=== PATIENT | male | born 1940 | race Caucasian/White ===

== ENCOUNTER 2017-06-05 19:48 | Emergency (ER) | payer MEDICARE ==
--- NOTE | 2017-06-05 20:45 | CT ---
EXAM: NONCONTRAST HEAD CT 06/05/17 HISTORY: Fall. Facial pain. Patient is on blood thinners. COMPARISON: None. TECHNIQUE: Noncontrast head CT is performed from skull base to skull vertex. FINDINGS: There is a large right frontal scalp hematoma. The underlying calvarium as well as the remainder of the calvarium is intact. Adequate aeration of the sinuses and mastoid air cells. Cavernous carotid a therosclerosis is noted. No parenchymal hemorrhage. No extra-axial hematoma. No midline shift. Basilar cisterns are patent. Brain volume, age appropriate. Cortical stanford-white matter differentiation is preserved. Ventricles and sulci are patent and symmetric. IMPRESSION: 1. No intracranial posttraumatic sequela. 2. Right frontal scalp hematoma. POS: [facility]
--- NOTE | 2017-06-05 21:31 | CT ---
CERVICAL SPINE CT SCAN WITHOUT IV CONTRAST: 06/05/17 HISTORY: 76-year-old male with neck pain following a fall prior to admission. Cervical spine spondylosis is n oted with some disc osteophytosis and facet arthrosis. No evidence for acute fracture or facet dislo cation. IMPRESSION: Minimal bone demineralization and cervical spondylosis. No acute fracture or dislocation. POS: [facility]
--- NOTE | 2017-06-05 21:48 | CT ---
FACIAL BONE CT SCAN WITHOUT IV CONTRAST: 06/05/17 HISTORY: 76-year-old male with facial pain following a fall. There is some focal soft tissue swelling over the right frontal bone. Minimal ethmoid sinus mucosal congestion. Zygomatic arches, orbits, and mandible all appear intact. The visualized cervical spine is intact. IMPRESSION: Small focal soft tissue swelling over the right frontal bone. No evidence for acute facial bone frac ture. POS: [facility]
[2017-06-05] MEDS ORDERED: Bacitracin Zinc 1 Packet ONE (22:05)
== END 2017-06-05 22:17 | disposition home or self-care (01) ==
LOC: ERS 19:48
DX: S00.11XA Contusion of right eyelid and periocular area, initial encounter (principal); S50.311A Abrasion of right elbow, initial encounter; S60.412A Abrasion of right middle finger, initial encounter; E78.5 Hyperlipidemia, unspecified; I10 Essential (primary) hypertension; G20 Parkinson's disease; F32.9 Major depressive disorder, single episode, unspecified; W01.10XA Fall on same level from slipping, tripping and stumbling with subsequent striking against unspecified object, initial encounter
CPT/HCPCS: 70450; 70486; 72125

== ENCOUNTER 2017-10-12 08:48 | Outpatient (CLI) | payer MEDICARE ==
[2017-10-12] MEDS ORDERED: Lidocaine 2% Jelly 5 ML TUBE ONE (09:00)
[2017-10-12] MEDS ORDERED: Sodium Chloride 0.9% 15 ML NEB ONE (09:00)
--- NOTE | 2017-10-12 10:45 | HP ---
DATE OF SERVICE: 10/12/2017 HISTORY OF PRESENT ILLNESS: Mr. Obie Hill is a very pleasant 77-year- old gentleman accompanied by his who presents to the Wound Center for evaluation of an ulceration of the right great toe. The patient also has 2 ulcerations of the right medial lower leg. The patient states the ulceration of the right great toe has been present for 2 years. He states that the ulceration was first noted when callus came off the plantar surface of the right great toe. The patient states that the wounds of the right medial lower leg have also been present for 2 years. The patient states that he has been seen by Dermatology at the [facility] for his right medial lower leg wounds. A steroid cream was prescribed for treatment of the 2 ulcerations of the right medial lower leg. The patient states that for the ulceration of the right great toe, he has been seen by Dr. Campbell. The patient's states that she has been dressing the right great toe ulceration with either Vaseline or Neosporin. The ulceration is then covered with gauze and paper tape. PAST MEDICAL HISTORY: 1. Parkinson's. 2. Hypertension. 3. Hypothyroidism. 4. Peptic ulcer disease. PAST SURGICAL HISTORY: 1. Tonsillectomy. 2. Closed reduction and application of spanning wrist external fixator on 09/04. 3. Removal of external fixator of left wrist on 11/05/2016. MEDICATIONS: 1. Amantadine. 2. Carbidopa/levodopa. 3. Entacapone. 4. Losartan/HCTZ. 5. Sertraline. 6. Ropinirole. 7. Atorvastatin. 8. Clopidogrel. 9. Pantoprazole. 10. Acetamide. 11. Aspirin 81 mg. 12. Vitamin D3. 13. Vitamin C. 14. Calcium 600 mg plus vitamin D1. 15. Tamsulosin HCL. 16. Purelax. 17. Clobetasol propionate 0.5% ointment. ALLERGIES: LATEX. SOCIAL HISTORY: Significant for tobacco use of up to 1 pack of cigarettes per day for 2 years in the 1960s. The patient admits to the consumption of one drink per day for the past 60 years. FAMILY HISTORY: Significant for diabetes mellitus. The patient's grandmother was diagnosed with diabetes mellitus. Family history is also significant for coronary artery disease. The patient states that his father and a paternal aunt and uncle were all diagnosed with coronary artery disease. REVIEW OF SYSTEMS: The patient's reports an increase in the size of the right great toe. PHYSICAL EXAMINATION: VITAL SIGNS: Temperature 97.7, pulse 70, respirations 19, blood pressure 125/ 58. GENERAL: A 77-year-old gentleman sitting on table in examination room in no acute distress. HEENT: Normocephalic, atraumatic. NECK: No nuchal rigidity. CHEST: Clear to auscultation. CARDIOVASCULAR: Regular rate and rhythm. ABDOMEN: Soft. EXTREMITIES: An ulceration of the right great toe is present which measures approximately 0.9 x 0.9 cm. Granulation tissue is present within the wound margins. Necrotic and nonviable tissue present within the wound margins was debrided with an excisional full-thickness debridement with the use of a curette. Desiccated tissue, callus, and undermining at the periphery of the wound were excised with the use of scissors. No purulent drainage is associated with the wound. No erythema of the skin surrounding the wound is present. No maceration of the skin of the periwound is noted. The ulceration is located in the region of callus on the plantar surface of the right great toe. Two ulcerations of the right medial lower leg are present which measure approximately 0.5 x 0.7 cm each. Necrotic and nonviable tissue present within the margins of each wound was debrided with an excisional full-thickness debridement with the use of a curette. No purulent drainage is associated with either wound. No cellulitis of the right lower leg is appreciated. No maceration of the skin of the periwound of either wound is noted. A dorsalis pedis pulse and a posterior tibial pulse are both palpable on the right. Edema of the right lower extremity is also present on exam today. ASSESSMENT AND PLAN: 1. Ulceration of plantar surface of right great toe and venous ulcerations of right medial lower leg as described above. For the ulceration of the right great toe, dressing changes of Silverlon and gauze are to be performed on a daily basis for 3 times per week after cleansing and irrigation by the patient' s . For the ulcerations of the right medial lower leg, Silverlon, Webril, and the 3M Coban 2-layer compression system will be applied today. The patient is to return to the Wound Center in 1 week for a dressing change of Silverlon, Webril, and the 3M Coban 2 layer compression system for the right medial lower leg ulcerations. I will see Mr. Hill again in two weeks. No antibiotics will be prescribed today based upon the appearance of the wound. Plain films of the right great toe will be obtained today to look for findings suggestive of osteomyelitis. The patient and her understand and are in agreement with the preceding treatment plan. I have explained to the patient and his that consideration may need to be given to treatment with a bioengineered skin substitute should any of the wounds fail to heal over a four week period of time. 2. Parkinson's. 3. Hypertension. 4. Hypothyroidism. 5. Peptic ulcer disease. MTDD
--- NOTE | 2017-10-12 13:38 | RAD ---
RIGHT FOOT 2 VIEWS: HISTORY: Chronic ulceration of the right toe. COMPARISON: None. FINDINGS: There is soft tissue swelling. There is an ulcer involving the plantar surface of the distal aspect of the right 1st digit. Lisfranc alignment is maintained. Mild bone demineralization. No fracture. There are no erosive or destructive changes in the osseous structures. IMPRESSION: 1. Soft tissue swelling and possible cellulitis. 2. Soft tissue ulceration. 3. No definite radiographic evidence of osteomyelitis. POS: [facility]
== END 2017-10-12 08:49 | disposition home or self-care (01) ==
LOC: WCC 08:48 → RAD 08:49
PROVIDERS: ATTEND Family Medicine
DX: L97.519 Non-pressure chronic ulcer of other part of right foot with unspecified severity (principal); M79.89 Other specified soft tissue disorders
CPT/HCPCS: 11042; 73630; 97139; G0463; 99203; A4218

== ENCOUNTER 2017-10-14 07:56 | Outpatient (CLI) | payer MEDICARE ==
[2017-10-14] MEDS ORDERED: Sodium Chloride 0.9% 15 ML NEB ONE ×2 (09:00→09:02)
== END 2017-10-14 07:57 | disposition home or self-care (01) ==
LOC: WCC 07:56
PROVIDERS: ATTEND Family Medicine
DX: L97.519 Non-pressure chronic ulcer of other part of right foot with unspecified severity (principal); L97.819 Non-pressure chronic ulcer of other part of right lower leg with unspecified severity
CPT/HCPCS: 97602; A4218

== ENCOUNTER 2017-10-19 08:29 | Outpatient (CLI) | payer MEDICARE ==
[~2017-10-19 08:29] MED LIST: Sodium Chloride 0.9% 15 ML NEB ONE
== END 2017-10-19 08:30 | disposition home or self-care (01) ==
LOC: WCC 08:29
PROVIDERS: ATTEND Family Medicine
DX: L97.519 Non-pressure chronic ulcer of other part of right foot with unspecified severity (principal); L97.819 Non-pressure chronic ulcer of other part of right lower leg with unspecified severity
CPT/HCPCS: 97602; A4218

== ENCOUNTER 2017-10-26 08:48 | Outpatient (CLI) | payer MEDICARE ==
--- NOTE | 2017-10-26 10:06 | PRG ---
DATE OF SERVICE: 10/26/2017 HISTORY: Mr. Obie Hill is a very pleasant 77-year-old gentleman accompanied by his who presents to the Wound Center for evaluation of an ulceration of the right great toe. The patient als geri has 2 ulcerations of the right medial lower leg. The patient stated at the time of his initial pre sentation to the Wound Center that the ulceration of the right great toe had been present for 2 years . The patient stated that the ulceration was first noted when callus came off the plantar surface of the right great toe. The patient stated that the wounds of the right medial lower leg had also been present for 2 years. The patient stated that he had been seen by Dermatology at the [facility] for his right medial lower leg wounds. A steroid cream was prescribed for treatment of the 2 ulceration s of the right medial lower leg. The patient stated that for the ulceration of the right great toe, he had been seen by Dr. Campbell. The patient's stated that she had been dressing the right great toe ulceration with either Vaseline or Neosporin. The ulceration was then covered with gauze and pap er tape. After being seen in the Wound Center, dressing changes of Silverlon and gauze were initiate d for the ulcerations of the right medial lower leg. The patient received dressing changes of Silver remberto, Webril, and 3M Coban 2 layer compression system on a weekly basis. PHYSICAL EXAMINATION: VITAL SIGNS: Temperature 97.9, pulse 62, respirations 18, and blood pressure 135/63. EXTREMITIES: An ulceration of the right great toe is present which measures approximately 0.4 x 0.9 cm. The dimensions of the wound at the time of the patient's last visit were approximately 0.9 x 0.9 cm. Granulation tissue is present within the wound margins. Necrotic and nonviable tissue present within the wound margins was debrided with an excisional full-thickness debridement with the use of a curette. Desiccated tissue, callus, and undermining at the periphery of the wound were excised with the use of scissors. No purulent drainage is associated with the wound. No erythema of the skin musa rrounding the wound is present. No maceration of the skin of the periwound is noted. A dorsalis ped is pulse is palpable on the right. Less edema of the right great toe is present on exam today than a t the time of the patient's last visit. Two ulcerations of the right medial lower leg are present wh ich measure approximately 0.4 x 0.3 cm and 0.6 x 0.8 cm. The dimensions of each wound at the time of the patient's last visit were approximately 0.5 x 0.7 cm. Granulation tissue is present within the margins of each wound. Necrotic and nonviable tissue present within the margins of each wound was de brided with an excisional full-thickness debridement with the use of a curette. No purulent drainage is associated with either wound. No cellulitis of the right lower leg is appreciated. No maceratio n of the skin of the periwound of either wound is noted. Edema of the right lower extremity is again present on exam today. ASSESSMENT AND PLAN: 1. Ulceration of plantar surface of right great toe and venous ulcerations of right medial lower leg as described above. For the ulceration of the right great toe, dressing changes of Silverlon and ga uze are to be performed on a daily basis or 3 times per week after cleansing and irrigation with the assistance of the patient's . For the ulcerations of the right medial lower leg, Silverlon, Webr il, and the 3M Coban 2-layer compression system will be applied today. The patient is to return to [facility] in 1 week for a dressing change of Silverlon, Webril, and the 3M Coban 2 layer compre ssion system for the right medial lower leg ulcerations. I will see Mr. Mcfadden again in two weeks. Plain films of the right great toe revealed no findings suggestive of osteomyelitis. 2. Parkinson's. 3. Hypertension. 4. Hypothyroidism. 5. Peptic ulcer disease.
[2017-10-26] MEDS ORDERED: Lidocaine 2% Jelly 5 ML TUBE ONE (19:50)
[2017-10-26] MEDS ORDERED: Sodium Chloride 0.9% 15 ML NEB ONE (19:50)
== END 2017-10-26 08:49 | disposition home or self-care (01) ==
LOC: WCC 08:48
PROVIDERS: ATTEND Family Medicine
DX: L97.519 Non-pressure chronic ulcer of other part of right foot with unspecified severity (principal); L97.819 Non-pressure chronic ulcer of other part of right lower leg with unspecified severity; G20 Parkinson's disease; I10 Essential (primary) hypertension; E03.9 Hypothyroidism, unspecified; K27.9 Peptic ulcer, site unspecified, unspecified as acute or chronic, without hemorrhage or perforation
CPT/HCPCS: A4218

== ENCOUNTER 2017-11-02 10:23 | Outpatient (CLI) | payer MEDICARE | END 2017-11-02 10:24 | disposition home or self-care (01) | LOC: WCC 10:23 | PROVIDERS: ATTEND Family Medicine | DX: L97.519 Non-pressure chronic ulcer of other part of right foot with unspecified severity (principal) | CPT/HCPCS: 97602; A4218 ==

== ENCOUNTER 2017-11-09 08:39 | Outpatient (CLI) | payer MEDICARE ==
--- NOTE | 2017-11-09 10:29 | PRG ---
DATE OF SERVICE: 11/09/2017 HISTORY: Mr. Obie Hill is a very pleasant 77-year-old gentleman accompanied by his who presents to the Wound Center for evaluation of an ulceration of the right great toe. The patient als geri has 2 ulcerations of the right medial lower leg. The patient stated at the time of his initial pre sentation to the Wound Center that the ulceration of the right great toe had been present for 2 years . The patient stated that the ulceration was first noted when callus came off the plantar surface of the right great toe. The patient stated that the wounds of the right medial lower leg had also been present for 2 years. The patient stated that he had been seen by Dermatology at the [facility] for his right medial lower leg wounds. A steroid cream was prescribed for treatment of the 2 ulceration s of the right medial lower leg. The patient stated that for the ulceration of the right great toe, he has been seen by Dr. Campbell. The patient's stated that she has been dressing the right great toe ulceration with either Vaseline or Neosporin. The ulceration was then covered with gauze and pap er tape. After being seen in the Wound Center, dressing changes of Silverlon and gauze were initiate d. For the ulcerations of the right medial lower leg, the patient has been receiving dressing change s of Silverlon, Webril, and 3M Coban 2 layer compression system on a weekly basis. PHYSICAL EXAMINATION: VITAL SIGNS: Temperature 97.5, pulse 58, respirations 19, and blood pressure 149/63. EXTREMITIES: An ulceration of the right great toe is present which measures approximately 0.5 x 0.5 cm. The dimensions of the wound at the time of the patient's visit on 10/26/2017 were approximately 0.4 x 0.9 cm. Granulation tissue is present within the wound margins. Necrotic and nonviable tissue present within the wound margins was debrided with an excisional full-thickness debridement with the use of a curette. Desiccated tissue, callus, and undermining at the periphery of the wound were exc ised with the use of scissors. No purulent drainage is associated with the wound. No erythema of th e skin surrounding the wound is present. No maceration of the skin of the periwound is noted. A francesco salis pedis pulse is palpable on the right. Less edema of the right great toe is present on exam tod ay than at the time of the patient's visit on 10/26/2017. Two ulcerations of the right medial lower leg have coalesced into one ulceration. Granulation tissue is present within the wound margins. Nec rotic and nonviable tissue present within the wound margins was debrided with an excisional full-thic kness debridement with the use of a curette. No purulent drainage is associated with the wound. No cellulitis of the right lower leg is appreciated. No maceration of the skin of the periwound is note d. Edema of the right lower extremity is again present on today's exam. Discoloration of the skin o f the right lower leg is also present secondary to hemosiderin deposition. ASSESSMENT AND PLAN: 1. Ulceration of plantar surface of right great toe and venous ulceration of right medial lower leg as described above. For the ulceration of the right great toe, dressing changes of Silverlon and gau ze will be continued on a daily basis or 3 times per week after cleansing and irrigation with the ass istance of the patient's . For the ulceration of the right medial lower leg, Silverlon, Webril, and the 3M Coban 2-layer compression system will be applied today. I will see Mr. Hill again in o week. Because the venous ulcerations of the right medial lower leg have been present for over 4 w eeks and because the patient has a palpable dorsalis pedis pulse on the right, I have explained to th e patient and his that Mr. Mcfadden is a suitable candidate for treatment with a bioengineered sk in substitute, specifically Apligraf. At the time of the patient's followup visit in 1 week, conside ration will be given to Apligraf placement. 2. Lymphedema tarda. The patient continues to have edema despite the serial application of compress ion wraps and elevation. Arrangements will be made for the initiation of in-home lymphedema therapy. 3. Parkinson's. 4. Hypertension. 5. Hypothyroidism. 6. Peptic ulcer disease.
[2017-11-09] MEDS ORDERED: Lidocaine 2% Jelly 5 ML TUBE ONE (19:54)
[2017-11-09] MEDS ORDERED: Sodium Chloride 0.9% 15 ML NEB ONE (19:54)
== END 2017-11-09 08:40 | disposition home or self-care (01) ==
LOC: WCC 08:39
PROVIDERS: ATTEND Family Medicine
DX: L97.419 Non-pressure chronic ulcer of right heel and midfoot with unspecified severity (principal); L97.819 Non-pressure chronic ulcer of other part of right lower leg with unspecified severity; I89.0 Lymphedema, not elsewhere classified; G20 Parkinson's disease; I10 Essential (primary) hypertension; E03.9 Hypothyroidism, unspecified; K27.9 Peptic ulcer, site unspecified, unspecified as acute or chronic, without hemorrhage or perforation
CPT/HCPCS: 11042; A4218

== ENCOUNTER 2017-11-18 08:34 | Outpatient (CLI) | payer MEDICARE ==
[2017-11-18] MEDS ORDERED: Lidocaine 2% Jelly 5 ML TUBE ONE (09:00)
[2017-11-18] MEDS ORDERED: Sodium Chloride 0.9% 15 ML NEB ONE (09:00)
--- NOTE | 2017-11-18 11:02 | PRG ---
DATE OF SERVICE: 11/18/2017 HISTORY: Mr. Obie Hill is a very pleasant 77-year-old gentleman accompanied by his who pre sents to the Wound Center for evaluation of an ulceration of the right great toe. The patient also h as 2 ulcerations of the right medial lower leg. The patient stated at the time of his initial presen tation to the Wound Center that the ulceration of the right great toe had been present for 2 years. The patient stated that the ulceration was first noted when the callus came off the plantar surface o f the right great toe. The patient stated that the wounds of the right medial lower leg had also bee n present for 2 years. The patient stated that he had been seen by Dermatology at the [facility] fo r his right medial lower leg wounds. A steroid cream was prescribed for treatment of the 2 ulceratio ns of the right medial lower leg. The patient stated that for the ulceration of the right great toe, he has been seen by Dr. Campbell. The patient's stated that she had been dressing the right great toe ulceration with either Vaseline or Neosporin. The ulceration was then covered with gauze and pa per tape. After being seen in the Wound Center, dressing changes of Silverlon and gauze were initiat ed. For the ulcerations of the right medial lower leg, the patient has been receiving dressing renteria es of Silverlon, Webril, and 3M Coban 2 layer compression system on a weekly basis. PHYSICAL EXAMINATION: VITAL SIGNS: Temperature 97.9, pulse 62, respirations 18, blood pressure 133/60. EXTREMITIES: An ulceration of the right great toe is present, which measures approximately 0.5 x 0.8 cm. Granulation tissue is present within the wound margins. Necrotic and nonviable tissue present within the wound margins was debrided with an excisional full-thickness debridement with the use of a curette. Desiccated tissue, callus, and undermining at the periphery of the wound were excised with the use of scissors. No purulent drainage is associated with the wound. No erythema of the skin musa rrounding the wound is present. No maceration of the skin of the periwound is noted. Less edema of the right great toe is present on exam today than at the time of the patient's visit on 11/09/2017. Two ulcerations of the right medial lower leg are present, which measure approximately 1.0 x 1.1 cm a nd 1.0 x 1.0 cm. Granulation tissue is present within the margins of each wound. Necrotic and nonvi able tissue present within the margins of each wound was debrided with an excisional full-thickness d ebridement with the use of a curette. No purulent drainage is associated with either wound. No cell ulitis of the right lower leg is appreciated. No maceration of the skin of the periwound of either w ound is noted. Edema of the right lower leg is present on exam today. Discoloration of the skin of the right lower leg is also present secondary to hemosiderin deposition. ASSESSMENT AND PLAN: 1. Ulceration of plantar surface of right great toe and venous ulcerations of right medial lower leg as described above. For the ulceration of the right great toe, dressing changes of Promogran, Silve rlon and gauze will be continued every other day after cleansing and irrigation with the assistance o f the patient's . For the ulcerations of the right medial lower leg, Promogran, Silverlon, Webri l, and the 3M Coban 2-layer compression system will be applied today. I will see Mr. Hill again i n one week. I have reiterated to the patient and his , because the venous ulcerations of the rig ht medial lower leg have been present for over 4 weeks and because the patient has a palpable dorsali s pedis pulse on the right, Mr. Hill is a suitable candidate for treatment with a bioengineered sk in substitute, specifically Apligraf. I will see Mr. Hill again on 11/26/2017. 2. Lymphedema Tarda. The patient continues to have edema of the right lower leg despite the serial application of compression wraps and elevation. Arrangements will be made at the time of the patient 's visit on 11/26/2017 for the initiation of in-home lymphedema therapy. 3. Parkinson's. 4. Hypertension. 5. Hypothyroidism. 6. Peptic ulcer disease.
== END 2017-11-18 08:35 | disposition home or self-care (01) ==
LOC: WCC 08:34
PROVIDERS: ATTEND Family Medicine
DX: I83.018 Varicose veins of right lower extremity with ulcer other part of lower leg (principal); L97.519 Non-pressure chronic ulcer of other part of right foot with unspecified severity; I10 Essential (primary) hypertension; L97.919 Non-pressure chronic ulcer of unspecified part of right lower leg with unspecified severity; I89.0 Lymphedema, not elsewhere classified; G20 Parkinson's disease; K27.9 Peptic ulcer, site unspecified, unspecified as acute or chronic, without hemorrhage or perforation
CPT/HCPCS: 11042; A4218

== ENCOUNTER 2017-11-26 08:22 | Outpatient (CLI) | payer MEDICARE ==
[~2017-11-26 08:22] MED LIST changes: +Lidocaine 2% Jelly 5 ML TUBE ONE
--- NOTE | 2017-11-26 11:17 | PRG ---
DATE OF SERVICE: 11/26/2017 HISTORY: Mr. Obie Hill is a very pleasant 77-year-old gentleman accompanied by his who presents to the Wound Center for evaluation of an ulceration of the right great toe. The patient also has 2 ulcerations of the right medial lower leg. The patient stated at the time of his initial presentation to the Wound Center that the ulceration of the right great toe had been present for 2 years. The patient stated that the ulceration was first noted when callus came off the plantar surface of the right great toe. The patient stated that the wounds of the right medial lower leg had also been present for 2 years. The patient stated that he had been seen by Dermatology at the [facility] for his right medial lower leg wounds. A steroid cream was prescribed for treatment of the 2 ulcerations of the right medial lower leg. The patient stated that for the ulceration of the right great toe, he has been seen by Dr. Campbell. The patient's stated that she had been dressing the right great toe ulceration with either Vaseline or Neosporin. The ulceration was then covered with gauze and paper tape. After being seen in the Wound Center, dressing changes of Silverlon and gauze were initiated. For the ulcerations of the right medial lower leg, the patient has been receiving dressing changes of Silverlon, Webril, and the 3M Coban 2-layer compression system on a weekly basis. At the time of the patient's visit on 11/18/2017, Promogran was added to the patient's regimen. PHYSICAL EXAMINATION: VITAL SIGNS: Temperature 97.4, pulse 63, respirations 18, blood pressure 125/ 58. EXTREMITIES: An ulceration of the right great toe is present which measures approximately 0.2 x 0.4 cm. Granulation tissue is present within the wound margins. Necrotic and nonviable tissue present within the wound margins was debrided with an excisional full-thickness debridement with the use of a curette. No purulent drainage is associated with the wound. Desiccated tissue , callus, and undermining at the periphery of the wound were excised with the use of scissors. No erythema of the skin surrounding the wound is present. No maceration of the skin of the periwound is noted. Less edema of the right great toe is present on exam today than at the time of the patient's previous visits. Two ulcerations of the right medial lower leg are present which measure approximately 0.5 x 0.5 cm and 0.3 x 0.4 cm. Granulation tissue is present within the margins of each wound. Necrotic and nonviable tissue present within the margins of each wound was debrided with an excisional full- thickness debridement with the use of a curette. No purulent drainage is associated with either wound. No cellulitis of the right lower leg is appreciated. No maceration of the skin of the periwound of either wound is noted. Edema of the right lower leg is present on exam today. Discoloration of the skin of the right lower leg is also present secondary to hemosiderin deposition. ASSESSMENT AND PLAN: 1. Ulceration of plantar surface of right great toe and venous ulcerations of right medial lower leg as described above. For the ulceration of the right great toe, dressing changes of Promogran, Silverlon,and gauze will be continued every other day after cleansing and irrigation with the assistance of the patient's . For the ulcerations of the right medial lower leg, Promogran, Silverlon, Webril, and the 3M Coban 2-layer compression system will be applied today. I will see Mr. Hill again in one week. At this time, consideration will be given to treatment with Apligraf. 2. Lymphedema tarda. The patient continues to have edema of the right lower leg despite the serial application of compression wraps and elevation. Arrangements will continue for the initiation of in-home lymphedema therapy. 3. Parkinson's. 4. Hypertension. 5. Hypothyroidism. 6. Peptic ulcer disease. [facility]
== END 2017-11-26 08:23 | disposition home or self-care (01) ==
LOC: WCC 08:22
PROVIDERS: ATTEND Family Medicine
DX: L97.519 Non-pressure chronic ulcer of other part of right foot with unspecified severity (principal); I89.0 Lymphedema, not elsewhere classified; G20 Parkinson's disease; I10 Essential (primary) hypertension; E03.9 Hypothyroidism, unspecified; K27.9 Peptic ulcer, site unspecified, unspecified as acute or chronic, without hemorrhage or perforation
CPT/HCPCS: 11042; A4218

== ENCOUNTER 2017-12-03 08:26 | Outpatient (CLI) | payer MEDICARE ==
--- NOTE | 2017-12-03 10:30 | PRG ---
DATE OF SERVICE: 12/03/2017 HISTORY: Mr. Obie Hill is a very pleasant 77-year-old gentleman accompanied by his who presents to the W[facility] Center for evaluation of an ulceration of the right great toe. The patient als o has 2 ulcerations of the right medial lower leg. The patient stated at the time of his initial pre sentation to the Wound Center that the ulceration of the right great toe had been present for 2 years . The patient stated that the ulceration was first noted when the callus came off the plantar surfac e of the right great toe. The patient stated that the wounds of the right medial lower leg had also been present for 2 years. The patient stated that he had been seen by Dermatology at the [facility] for his right medial lower leg wounds. A steroid cream was prescribed for the treatment of 2 ulcera tions of the right medial lower leg. The patient stated that for the ulceration of the right great t oe, he had been seen by Dr. Campbell. The patient's stated that she had been dressing the right gr eat toe ulceration with either Vaseline or Neosporin. The ulceration was then covered with gauze and paper tape. After being seen in the Wound Center, dressing changes of Silverlon and gauze were init iated. For the ulceration of the right medial lower leg, the patient has been receiving dressing maxi nges of Silverlon, Webril, and 3m Coban 2 layer compression system on a weekly basis. At the time of the patient's visit on 11/18/2017, Promogran was added to the patient's regimen. PHYSICAL EXAMINATION: VITAL SIGNS: Temperature 97.4, pulse 72, respirations 18, blood pressure 119/58. EXTREMITIES: An ulceration of the right great toe is present which measures approximately 0.4 x 0.2 cm. Granulation tissue is present within the wound margins. Necrotic and nonviable tissue present w ithin the wound margins was debrided with an excisional full-thickness debridement with the use of a curette. No purulent drainage is associated with the wound. Desiccated tissue, callus, and undermin ing at the periphery of the wound were eliminated with the use of scissors. No erythema of the skin surrounding the wound is present. No maceration of the skin of the periwound is noted. Less edema o f the right great toe is present on exam today than at the time of the patient's previous visits. Tw o ulcerations of the right medial lower leg are present which are healing without complications or an y signs of infection. Discoloration of the skin of the right lower leg is present secondary to hemos iderin deposition. Edema of the right lower leg is also present on exam today. ASSESSMENT AND PLAN: 1. Ulceration of plantar surface of right great toe and venous ulcerations of right medial lower leg as described above. For the ulceration of the right great toe, dressing changes of Promogran and Si lverlon and gauze will be continued daily or every other day after cleansing and irrigation with the assistance of the patient's . For the ulcerations of the right medial lower leg, Promogran, Silv erlon, Webril, and the 3m Coban 2-layer compression system will be applied today. Coban will be util ized at the time of dressing changes for the right great toe wound. I will see Mr. Mcfadden again in one week. Ankle brachial indices were obtained today. LAZARA on the right is 1.04 and on the left is 1 .33. 2. Lymphedema tarda. The patient continues to have edema of the right lower leg despite the serial application of compression wraps and elevation. Arrangements will continue for the initiation of in- home lymphedema therapy. 3. Parkinson's. 4. Hypertension. 5. Hypothyroidism. 6. Peptic ulcer disease.
== END 2017-12-03 08:27 | disposition home or self-care (01) ==
LOC: WCC 08:26
PROVIDERS: ATTEND Family Medicine
DX: L97.519 Non-pressure chronic ulcer of other part of right foot with unspecified severity (principal); L97.819 Non-pressure chronic ulcer of other part of right lower leg with unspecified severity; I89.0 Lymphedema, not elsewhere classified; R60.0 Localized edema; G20 Parkinson's disease; I10 Essential (primary) hypertension; E03.9 Hypothyroidism, unspecified; K27.9 Peptic ulcer, site unspecified, unspecified as acute or chronic, without hemorrhage or perforation

== ENCOUNTER 2017-12-10 08:27 | Outpatient (CLI) | payer MEDICARE ==
--- NOTE | 2017-12-10 09:37 | PRG ---
DATE OF SERVICE: 12/10/2017 HISTORY: Mr. Obie Hill is a very pleasant 77-year-old gentleman accompanied by his who presents to the Wound Center for evaluation of an ulceration of the right great toe. The patient als geri has 2 ulcerations of the right medial lower leg. The patient stated at the time of his initial pre sentation to the Wound Center that the ulceration of the right great toe had been present for 2 years . The patient stated that the ulceration was first noted when the callus came off the plantar surfac e of the right great toe. The patient stated that the wounds of the right medial lower leg had also been present for 2 years. The patient stated that he had been seen by Dermatology at the [facility] for his right medial lower leg wounds. A steroid cream was prescribed for the treatment of 2 ulcera tions of the right medial lower leg. The patient stated that for the ulceration of the right great t oe he had been seen by Dr. Campbell. The patient's stated that she had been dressing the right gre at toe ulceration with either Vaseline or Neosporin. The ulceration was then covered with gauze and paper tape. After being seen in the Wound Center, dressing changes of Silverlon and gauze were initi ated for the ulceration of the right medial lower leg. The patient has been receiving dressing renteria es of Silverlon, Webril, and 3m Coban 2 layer compression system on a weekly basis. At the time of t patient's visit on 11/18/2017 Promogran was added to the patient's regimen. PHYSICAL EXAMINATION: VITAL SIGNS: Pulse 63, respirations 18, blood pressure 132/63. EXTREMITIES: An ulceration of the right great toe is present which measures approximately 0.2 x 0.2 cm. The dimensions of the wound at the time of the patient's visit on 12/03/2017 were approximately 0.4 x 0.2 cm. Granulation tissue is present within the wound margins. Necrotic and nonviable tissue present within the wound margins was debrided with an excisional full-thickness debridement with the use of a curet. No purulent drainage is associated with the wound. Desiccated tissue, callus, and undermining at the periphery of the wound were eliminated with the use of scissors. No erythema of t skin surrounding the wound is present. No maceration of the skin of the periwound is noted. Less edema of the right great toe is present on exam today than at the time of the patient's previous vis its. Erythema of the dorsum of the distal right great toe is present. The area of erythema is appro ximately 2.5 cm in length. Only 1 ulceration of the right medial lower leg is present which appears to be healing without complications or any signs of infection. Discoloration of the skin of the righ t lower leg is present secondary to hemosiderin deposition. Edema of the right lower leg is also pre sent on exam today. ASSESSMENT AND PLAN: 1. Ulceration of plantar surface of right great toe and venous ulcerations of right medial lower leg as described above. As stated above, only 1 venous ulceration of the right medial lower leg remains . For the ulceration of the right great toe dressing changes of Promogran, Silverlon, gauze and Angela n will be continued every 3 days after cleansing and irrigation with the assistance of the patient's . For the remaining ulceration of the right medial lower leg, Promogran, Silverlon, Webril, and the 3m Coban 2-layer compression system will be applied today. I will see Mr. Hill again in 1 wee k. 2. Lymphedema tarda The patient continues to have edema of the right lower leg despite the serial a pplication of compression wraps and elevation. Arrangements will continue for the initiation of in-h ome lymphedema therapy. 3. Parkinson's. 4. Hypertension. 5. Hypothyroidism. 6. Peptic ulcer disease.
[2017-12-10] MEDS ORDERED: Lidocaine 2% Jelly 5 ML TUBE ONE (15:28)
[2017-12-10] MEDS ORDERED: Sodium Chloride 0.9% 15 ML NEB ONE (15:28)
== END 2017-12-10 08:28 | disposition home or self-care (01) ==
LOC: WCC 08:27
PROVIDERS: ATTEND Family Medicine
DX: L97.519 Non-pressure chronic ulcer of other part of right foot with unspecified severity (principal); L97.919 Non-pressure chronic ulcer of unspecified part of right lower leg with unspecified severity; I89.0 Lymphedema, not elsewhere classified; R60.0 Localized edema; G20 Parkinson's disease; I10 Essential (primary) hypertension; E03.9 Hypothyroidism, unspecified; K27.9 Peptic ulcer, site unspecified, unspecified as acute or chronic, without hemorrhage or perforation
CPT/HCPCS: 11042; A4218

== ENCOUNTER 2017-12-17 08:59 | Outpatient (CLI) | payer MEDICARE ==
--- NOTE | 2017-12-17 09:58 | PRG ---
DATE OF SERVICE: 12/17/2017 HISTORY: Mr. Obie Hill is a very pleasant 77-year-old gentleman accompanied by his who presents to the Wound Center for evaluation of an ulceration of the right great toe. The patient als geri has 2 ulcerations of the right medial lower leg. The patient stated at the time of his initial pre sentation to the Wound Center that the ulceration of the right great toe had been present for 2 years . The patient stated that the ulceration was first noted when the callus came off the plantar surfac e of the right great toe. The patient stated that the wounds of the right medial lower leg had also been present for 2 years. The patient stated that he had been seen by Dermatology at the [facility] for his right medial lower leg wounds. A steroid cream was prescribed for the treatment of 2 ulcera tions of the right medial lower leg. The patient stated that for the ulceration of the right great t oe, he had been seen by Dr. Campbell. The patient's stated that she had been dressing the right gr eat toe ulceration with either Vaseline or Neosporin. The ulceration was then covered with gauze and paper tape. After being seen in the Wound Center, dressing changes of Silverlon and gauze were init iated. For the ulceration of the right medial lower leg, the patient has been receiving dressing maxi nges of Silverlon, Webril, and 3m Coban 2 layer compression system on a weekly basis. At the time of the patient's visit on 11/18/2017, Promogran was added to the patient's regimen. PHYSICAL EXAMINATION: VITAL SIGNS: Temperature 97.6, pulse 71, respirations 18, blood pressure 100/49. EXTREMITIES: An ulceration of the right great toe is present which measures approximately 0.4 x 0.2 cm. The depth of the wound is approximately 0.8 cm. Granulation tissue is present within the wound margins. Necrotic and nonviable tissue present within the wound margins was debrided with an excisio nal full-thickness debridement with the use of scissors. No purulent drainage is associated with the wound. Desiccated tissue, callus, and undermining at the periphery of the wound were also eliminate d with the use of scissors. No erythema of the skin surrounding the wound is present. No maceration of the skin of the periwound is noted. Edema and erythema of the distal right great toe is present on exam today. Both ulcerations of the right medial lower leg have healed completely. Discoloration of the skin of the right lower leg is present secondary to hemosiderin deposition. Edema of the rig ht lower leg is also present on today's exam. ASSESSMENT AND PLAN: 1. Ulceration of plantar surface of right great toe. As stated above, the venous ulcerations of the right medial lower leg have healed completely. For the ulceration of the right great toe, dressing changes of Promogran, Silverlon Gauze and Coban will be continued every 3 days after cleansing and ir rigation with the assistance of the patient's . Webril and the 3m Coban 2-layer compression syst em will be applied to the right foot and lower leg today. Arrangements will also be made for MRI of the right foot to look for findings suggestive of osteomyelitis of the right great toe. The patient and his understand and are in agreement with the preceding treatment plan. I will see Mr. Red busch again after MRI of the right foot with and without contrast has been obtained. 2. Lymphedema tarda. The patient continues to have edema of the right lower leg despite the serial application of compression wraps and elevation. Arrangements will continue for the initiation of in- home lymphedema therapy. 3. Parkinson's. 4. Hypertension. 5. Hypothyroidism. 6. Peptic ulcer disease.
== END 2017-12-17 09:00 | disposition home or self-care (01) ==
LOC: WCC 08:59
PROVIDERS: ATTEND Family Medicine
DX: L97.519 Non-pressure chronic ulcer of other part of right foot with unspecified severity (principal); I89.0 Lymphedema, not elsewhere classified; I10 Essential (primary) hypertension; E03.9 Hypothyroidism, unspecified; G20 Parkinson's disease; K27.9 Peptic ulcer, site unspecified, unspecified as acute or chronic, without hemorrhage or perforation
CPT/HCPCS: 11042; 97139; A4649

== ENCOUNTER 2017-12-21 08:41 | Outpatient (CLI) | payer MEDICARE ==
[2017-12-21] MEDS ORDERED: Gadobenate Dimeglumine 529 MG/1 ML (20ML VIAL) ONE (13:04)
--- NOTE | 2017-12-21 13:15 | MRI ---
MRI OF THE RIGHT FOREFOOT WITH AND WITHOUT CONTRAST: Date: 12/21/17 INDICATION: Concern for osteomyelitis of the right great toe. TECHNIQUE: Multiplanar, multisequence MR images were obtained of the right forefoot with and without contrast ut ilizing 14 mL MultiHance. COMPARISON: Radiographs of the right foot dated 10/12/17. FINDINGS: There is a plantar based ulceration involving the great toe distal phalanx, best seen on image 5 of s eries 4. There is cortical osteolysis and abnormal bone marrow signal intensity involving the distal tip of the distal phalanx of the great toe consistent with osteomyelitis. There is some mild cellulit is of the great toe. There is diffuse atrophy of the intrinsic foot musculature. There are scattered degenerative changes. There are changes of osteonecrosis of the fibula great toe sesamoid with fragme ntation. IMPRESSION: 1. 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 3. Extensive atrophy of the intrinsic foot musculature. POS: SHRUTHI
== END 2017-12-21 08:42 | disposition home or self-care (01) ==
LOC: MRI 08:41
PROVIDERS: ATTEND Family Medicine
DX: M86.8X7 Other osteomyelitis, ankle and foot (principal); L97.519 Non-pressure chronic ulcer of other part of right foot with unspecified severity; M87.87 Other osteonecrosis, ankle, foot and toes; M62.571 Muscle wasting and atrophy, not elsewhere classified, right ankle and foot
CPT/HCPCS: 82565; A9579

== ENCOUNTER 2017-12-24 10:34 | Outpatient (CLI) | payer MEDICARE ==
--- NOTE | 2017-12-24 14:34 | PRG ---
DATE OF SERVICE: 12/24/2017 HISTORY: Mr. Obie Hill is a very pleasant 77-year-old gentleman accompanied by his who presents to the Wound Center for evaluation of an ulceration of the right great toe. The patient als o has 2 ulcerations of the right medial lower leg. Since the patient was last seen in the Wound Cent er, Mr. Hill has undergone MRI of the right forefoot with and without contrast on 12/21/2017 which revealed osteomyelitis of the great toe distal phalanx. For the ulcerations of the right medial low er leg, the patient has been receiving dressing changes of Silverlon, Webril, and 3M Coban 2 layer co mpression system on a weekly basis here in the Wound Center. For the ulceration of the right great t oe, the patient has been receiving dressing changes of Promogran, Silverlon, gauze and Coban every 3 days after cleansing and irrigation with the assistance of the patient's . PHYSICAL EXAMINATION: VITAL SIGNS: Temperature 97.5, pulse 63, respirations 19, blood pressure 126/58. EXTREMITIES: An ulceration of the right great toe is present which measures approximately 0.6 x 0.3 cm. The depth of the wound is approximately 0.4 cm. Granulation tissue is present within the wound margins. No purulent drainage is associated with the wound. No erythema of the skin surrounding the wound is present. No maceration of the skin of the periwound is noted. Erythema and edema of the d istal right great toe are again present on exam today. Both ulcerations of the right medial lower le g have healed completely and remain healed. Discoloration of the skin of the right lower leg is pres ent secondary to hemosiderin deposition. ASSESSMENT AND PLAN: 1. Ulceration of plantar surface of right great toe. In view of the results of the MRI, arrangement s will be made for Mr. Hill to be seen in consultation by Orthopedic Surgery. As stated above, th e venous ulcerations of the right medial lower leg have healed completely and remain healed. Webril and the 3M Coban 2-layer compression system will be applied to the right foot and lower leg today for the ulceration of the right great toe. Dressing changes of Silverlon, gauze and Coban are to be con tinued every 3 days after cleansing and irrigation with the assistance of the patient's . The pa tient will be notified as to the date and time of his appointment with Orthopedic Surgery. The patie nt and his understand and are in agreement with the preceding treatment plan. 2. Lymphedema tarda. Arrangements are continuing for the initiation of in-home lymphedema therapy. The patient is to return to the Wound Center in 1 week for application of Webril and the 3M Coban 2 layer compression system to the right foot and lower leg if he has not yet received his pneumatic pum p. 3. Parkinson's. 4. Hypertension. 5. Hypothyroidism. 6. Peptic ulcer disease.
== END 2017-12-24 10:35 | disposition home or self-care (01) ==
LOC: WCC 10:34
PROVIDERS: ATTEND Family Medicine
DX: L97.519 Non-pressure chronic ulcer of other part of right foot with unspecified severity (principal); L97.919 Non-pressure chronic ulcer of unspecified part of right lower leg with unspecified severity; I89.0 Lymphedema, not elsewhere classified; G20 Parkinson's disease; I10 Essential (primary) hypertension; E03.9 Hypothyroidism, unspecified; K27.9 Peptic ulcer, site unspecified, unspecified as acute or chronic, without hemorrhage or perforation
CPT/HCPCS: 97602

== ENCOUNTER 2017-12-31 09:55 | Outpatient (CLI) | payer MEDICARE ==
--- NOTE | 2017-12-31 11:29 | PRG ---
DATE OF SERVICE: 12/31/2017 HISTORY: Mr. Obie Hill is a very pleasant 77-year-old gentleman accompanied by his who presents to the Wound Center for evaluation of an ulceration of the right great toe. The patient als o presents with skin tears of the right and left lower leg subsequent to a fall. MRI of the right fo refoot with and without contrast on 12/21/2017 revealed osteomyelitis of the great toe distal phalanx . For the ulceration of the right great toe, the patient has been receiving dressing changes with th e assistance of his . PHYSICAL EXAMINATION: VITAL SIGNS: Temperature 97.4, pulse 60, respirations 18, blood pressure 119/58. EXTREMITIES: An ulceration of the right great toe is present which measures approximately 0.2 x 0.2 cm. The depth of the wound is approximately 0.3 cm. Granulation tissue is present within the wound margins. No purulent drainage is associated with the wound. No erythema of the skin surrounding the wound is present. No maceration of the skin of the periwound is noted. Erythema and edema of the d istal right great toe are again present on exam today. ASSESSMENT AND PLAN: 1. Ulceration of plantar surface of right great toe. Arrangements will be made for Mr. Hill to b e seen in consultation by General Surgery. The patient's is to continue dressing changes for th e right great toe plantar ulceration. For the skin tears of the right and left lower legs, the patie nt's is to perform dressing changes of Silverlon 3 times per week after cleansing and irrigation . 2. Lymphedema tarda. The patient has received his pneumatic pump and will be receiving instruction in its use in the near future. 3. Parkinson's. 4. Hypertension. 5. Hypothyroidism. 6. Peptic ulcer disease.
[2017-12-31] MEDS ORDERED: Sodium Chloride 0.9% 15 ML NEB ONE (21:17)
== END 2017-12-31 09:56 | disposition home or self-care (01) ==
LOC: WCC 09:55
PROVIDERS: ATTEND Family Medicine
DX: L97.519 Non-pressure chronic ulcer of other part of right foot with unspecified severity (principal); I89.0 Lymphedema, not elsewhere classified; G20 Parkinson's disease; I10 Essential (primary) hypertension; E03.9 Hypothyroidism, unspecified; K27.9 Peptic ulcer, site unspecified, unspecified as acute or chronic, without hemorrhage or perforation
CPT/HCPCS: 97602; A4218

== ENCOUNTER 2018-01-21 14:41 | Outpatient (CLI) | payer MEDICARE ==
[~2018-01-21 14:41] MED LIST changes: -Lidocaine 2% Jelly 5 ML TUBE ONE
--- NOTE | 2018-01-21 17:19 | PRG ---
DATE OF SERVICE: 01/21/2018 HISTORY: Mr. Obie Hill is a very pleasant 77-year-old gentleman accompanied by his who presents to the Wound Center for evaluation of an ulceration of the right great toe. MRI of the rig t forefoot with and without contrast on 12/21/2017 revealed osteomyelitis of the great toe distal pha lanx. The patient has an appointment with General Surgery on 01/26/2018. The patient's reports discoloration of the soft tissue of the distal right great toe after trimming of callus by Podiatry. The patient has no other complaints today. He denies any fever or chills. PHYSICAL EXAMINATION: VITAL SIGNS: Temperature 97.6, pulse 63, respirations 19, blood pressure 130/60. EXTREMITIES: An ulceration of the right great toe is still present which today measures approximatel y 0.3 x 0.3 cm. Granulation tissue is present within the wound margins. No purulent drainage is ass ociated with the wound. No maceration of the skin of the periwound is noted. Erythema and edema of the distal right great toe are again noted on today's exam. ASSESSMENT AND PLAN: 1. Ulceration of plantar surface of right great toe. Arrangements have been made for Mr. Hill to be seen in consultation by General Surgery. The patient's appointment is on 01/26/2018. For the chari francis's right great toe plantar ulceration, the patient's is to continue dressing changes of Leslie verlon gauze and Coban every other day after cleansing and irrigation with normal saline. The manjinderen t and his have been reassured that the discoloration of the soft tissue of the distal right grea t toe does not appear to be secondary to an infectious process, but rather bruising after trimming of callus by Podiatry. 2. Lymphedema tarda. The patient is utilizing his pneumatic pump as previously prescribed. 3. Parkinson's. 4. Hypertension. 5. Hypothyroidism. 6. Peptic ulcer disease.
== END 2018-01-21 14:42 | disposition home or self-care (01) ==
LOC: WCC 14:41
PROVIDERS: ATTEND Family Medicine
DX: L97.519 Non-pressure chronic ulcer of other part of right foot with unspecified severity (principal); I89.0 Lymphedema, not elsewhere classified; G20 Parkinson's disease; I10 Essential (primary) hypertension; E03.9 Hypothyroidism, unspecified; K27.9 Peptic ulcer, site unspecified, unspecified as acute or chronic, without hemorrhage or perforation
CPT/HCPCS: 97602; A4218

== ENCOUNTER 2018-01-31 21:02 | Inpatient (IN) | payer MEDICARE ==
[2018-01-31 21:43] LABS: Hemoglobin 13.3 g/dL (14.0-18.0); Mean Corpuscular HGB CONC 33.5 g/dL (32.0-36.0); Mean Corpuscular Hemoglobin 30.4 pg (27.0-31.0); Mean Corpuscular Volume 90.7 fL (78.0-98.0); Red Blood Cell (RBC) Count 4.38 mill/uL (4.70-6.10); White Blood Cell (WBC) Count 9.1 thou/uL (4.8-10.8)
--- NOTE | 2018-01-31 21:43 | RAD ---
PORTABLE CHEST ONE VIEW: Date: 01-31-18 Time: 9:35 p.m. History: Increased weakness, Parkinson's disease. Comparison: 01-28-16 FINDINGS: Heart size is normal. No lobar consolidation, pneumothoraces or pleural effusions are seen. IMPRESSION: No acute process. POS: KIKI
[2018-01-31 21:58] LABS: Acanthocytes SLIGHT = 1-5 cells (100X) (None Seen); Band 24 % (5-11); Elliptocytes SLIGHT = 2-5 cells (100X) (0-1/hpf); Lymphocytes 2 % (21-51); MDiff Complete? YES; Mean Platelet Volume 8.6 fL (7.4-10.4); Monocytes 4 % (0-10); Neutrophil 70 % (42-75); PLT Morphology Comment Appears Decreased; Platelet Count 112 thou/uL (130-400)
[2018-01-31 21:59] LABS: ALT (SGPT) Less than 7 U/L (8-55); AST (SGOT) 14 U/L (5-34); Alkaline Phosphatase 94 U/L (40-150); Anion Gap 15 mmol/L (10-20); BUN (Urea Nitrogen) 30 mg/dL (8.4-25.7); Bilirubin, Total 1.4 mg/dL (0.2-1.2); Calc. Creatinine Clearance 0 mL/min (70-130); Calcium 9.4 mg/dL (7.8-10.44); Carbon Dioxide 25 mmol/L (23-31); Chloride 101 mmol/L (98-107); Estimated GFR-MDRD 40; Globulin 2.8 g/dL (2.4-3.5); Glucose 117 mg/dL (83-110); Potassium 3.6 mmol/L (3.5-5.1); Protein, Total 6.8 g/dL (5.8-8.1); Sodium 137 mmol/L (136-145)
--- NOTE | 2018-01-31 22:40 | RAD ---
RIGHT FOOT THREE VIEWS: History: Right foot pain. FINDINGS/IMPRESSION: Comparison is made with exam of 10-12-17. Mild degenerative changes are present. No fracture or dislocation, bony destruction or periosteal geovanni ction identified. Posterior and plantar calcaneal spurs are present. POS: KIKI
[2018-01-31] MEDS ORDERED: Piperacillin/Tazobactam 4.5 GM VIAL ONE (22:52)
[2018-01-31] MEDS ORDERED: Sodium Chloride 0.9% 100 ML ONE (22:53)
[2018-01-31] MEDS ORDERED: Ondansetron HCl/PF 4 MG/2 ML Vial IVP PRN (23:06)
[2018-01-31] MEDS ORDERED: Acetaminophen 325 MG TAB PO PRN (23:06)
[2018-01-31] MEDS ORDERED: Enoxaparin Sodium 40 MG/0.4 ML SYRINGE SC SCH (23:15)
[2018-01-31] MEDS ORDERED: Vancomycin HCl 1.25 GM in Sodium Chloride 0.9% 250 ML 250 ML IVPB SCH (23:30)
[2018-01-31] MEDS ORDERED: Piperacillin/Tazobactam 4.5 GM in Sodium Chloride 0.9% 100 ML IVPB SCH (23:45)
--- NOTE | 2018-02-01 00:49 | HP ---
CHIEF COMPLAINT: Chills and weakness. PRIMARY CARE PHYSICIAN: Pedrito Melara MD CODE STATUS: FULL code. TIME OF EVALUATION: 11:00 p.m. HISTORY OF PRESENT ILLNESS: This is a 77-year-old male patient with past medical history of hypertension, who came to the hospital after having an episode of syncope and fall. The patient was found to have hypotension with systolic in the 70s. The has stated that the patient was working today at his workshop and after that, he became confused, very weak. The patient had chills, no fever. Symptoms were severe. The symptoms started around 4:00 p.m. The patient has been recovering, still occasionally confused, but able to establish a coherent conversation and answered simple questions. As noted, the patient has a chronic right big toe infection that had been receiving treatment by Wound Care. Podiatry has seen this patient in the past and was willing to have him get a long-term antibiotic therapy before doing any surgeries. REVIEW OF SYSTEMS: Constitutional: The patient has chills. No fever. Severe generalized weakness. Respiratory: No cough. No sputum production or shortness of breath. Cardiovascular: No chest pain, palpitation, shortness of breath. Gastrointestinal: No nausea, vomiting, diarrhea, or abdominal pain. [employer]PUT[employer]: No dizziness, headache, feeling lightheaded. Genitourinary: No burning on urination. Extremities: No leg swelling. All other systems were reviewed and negative except for the findings mentioned above. PAST MEDICAL HISTORY: 1. Right toe infection that is chronic. 2. Hypertension. 3. Hypothyroidism. 4. Peptic ulcer. 5. Parkinson disease. PAST SURGICAL HISTORY: Tonsillectomy, wrist surgery. HOME MEDICATIONS: Amantadine; carbidopa, levodopa, and entacapone; losartan and hydrochlorothiazide; sertraline; ropinirole; atorvastatin; clopidogrel; pantoprazole; acetaminophen; aspirin; vitamin D; vitamin C; tamsulosin; Pradaxa ; clobetasol ointment. ALLERGIES: LATEX. SOCIAL HISTORY: Lives with . The patient drinks 1 drink per day. FAMILY HISTORY: Positive for diabetes. Mother of cancer. PHYSICAL EXAMINATION: VITAL SIGNS: On presentation in the ER, the patient had systolic blood pressure in the 70, had responded to fluids; after the second bolus, the systolic blood pressure in 100s. Heart rate 85, oxygen saturation is normal. GENERAL APPEARANCE: The patient is alert, oriented. Significant generalized weakness reported. HEENT: Eyes: Normal conjunctivae. Moist oral mucosa. Anicteric. NECK: No JVD. RESPIRATORY: Bilateral air entry. No rales, no wheezing. Symmetric expansion. CARDIOVASCULAR: Normal rate, regular rhythm. No murmurs, no gallop, no edema. Initially, he was hypotensive. ABDOMEN: Soft. Normal bowel sounds. MUSCULOSKELETAL: Baseline range of motion and strength. No tenderness except for the right big toe that showed significant redness, swelling, decreased range of motion. SKIN: Warm and intact. No pallor. No rash except for the findings described in musculoskeletal. NEUROLOGIC: Baseline sensory. No evidence of any new focal deficit. Baseline speech. Cranial nerves seemed to be intact. PSYCHIATRIC: Good mood. No anxiety. Oriented. Suboptimal judgment. LABORATORY DATA: Reviewed. The patient has white count of 9.1, hemoglobin 13.3 , platelet count 112, neutrophils 70, bands 24. Sodium 137, potassium 3.6, chloride 101, carbon dioxide 25, anion gap 15, BUN 30, creatinine 1.66, GFR 40, glucose 117, lactic acid 3.2, calcium 9.4, total bilirubin 1.4. LFTs are negative. Right foot three-view x-ray was done. Mild degenerative changes are present. No fracture, dislocation, bony destruction, or periosteal reaction identified. Posterior and plantar calcaneal spurs are present. Chest x-ray was done. The patient has no acute process. ASSESSMENT AND PLAN: The patient has been admitted to the hospital with following medical conditions: 1. Severe sepsis. The patient presented with systolic blood pressure in the 70s, has recovered after fluid with systolic blood pressure 104, heart rate is normal. We will start the patient on antibiotics and we will continue hydration. Follow cultures, adjust treatment as needed. 2. Parkinson disease. Continue home medications. This is a chronic problem, seems to be stable. 3. History of hypertension. The patient has been septic. We will not start home medications for now. We will monitor, adjust treatment as needed. 4. Hypothyroidism. Continue hormone replacement. 5. Right big toe infection that is the etiology for severe sepsis. We will need Wound Care and Podiatry to see the patient for further planning. 6. Deep venous thrombosis prophylaxis. 7. Acute encephalopathy, likely secondary to underlying infection. We will treat the underlying etiology. He will need transition assistant as inpatient. 8. Acute kidney injury. The patient has creatinine of 1.6, that is up from the previous creatinine of 1.0. We will hydrate. The patient maybe in the dry side, he was working in his workshop today, and exposed to heat. 9. Hyperglycemia, 117, likely due to acute distress. We will monitor. No need for any acute intervention at this point. 10. The patient has lactic acidosis of 3.2, likely due to infectious, received fluids. We will monitor. We will treat underlying condition. MARY BETHD
[2018-02-01 01:27] LABS: Lactic Acid 1.2 mmol/L (0.5-2.2)
[2018-02-01 04:26] LABS: #Lymphocytes 0.2 thou/uL (1.20-3.40); #Monocytes 0.8 thou/uL (0.11-0.59); #Neutrophils 9.5 thou/uL (1.40-6.50); %Eosinophils 0.1 % (0.0-10.0); %Lymphocytes 1.9 % (21.0-51.0); %Monocytes 7.5 % (0.0-10.0); %Neutrophils 90.5 % (42.0-75.0); Hemoglobin 11.6 g/dL (14.0-18.0); Mean Corpuscular HGB CONC 33.1 g/dL (32.0-36.0); Mean Corpuscular Hemoglobin 30.4 pg (27.0-31.0); Mean Corpuscular Volume 91.9 fL (78.0-98.0); Mean Platelet Volume 8.6 fL (7.4-10.4); Platelet Count 94 thou/uL (130-400); RBC Distribution Width 13.9 % (11.5-14.5); Red Blood Cell (RBC) Count 3.82 mill/uL (4.70-6.10); White Blood Cell (WBC) Count 10.4 thou/uL (4.8-10.8)
[2018-02-01 04:33] LABS: Anion Gap 12 mmol/L (10-20); BUN (Urea Nitrogen) 28 mg/dL (8.4-25.7); Calc. Creatinine Clearance 75 mL/min (70-130); Calcium 8.4 mg/dL (7.8-10.44); Carbon Dioxide 23 mmol/L (23-31); Chloride 106 mmol/L (98-107); Estimated GFR-MDRD 50; Glucose 127 mg/dL (83-110); Potassium 3.8 mmol/L (3.5-5.1); Sodium 137 mmol/L (136-145)
[2018-02-01] MEDS: Sodium Chloride 0.9% 1,000 ML IV SCH ×2 (05:56→14:13)
[2018-02-01] MEDS: Piperacillin/Tazobactam 3.375 GM in Sodium Chloride 0.9% 100 ML IVPB SCH ×3 (05:57→17:58)
[2018-02-01] MEDS: Entacapone 200 mg Tablet PO SCH ×3 (08:47→20:55)
[2018-02-01] MEDS: Ascorbic Acid 500 mg Chewable Tablet PO SCH (08:47)
[2018-02-01] MEDS: Amantadine HCl 100 mg Capsule PO SCH ×2 (08:47→20:55)
[2018-02-01] MEDS: Aspirin 325 MG TAB PO SCH (08:47)
[2018-02-01] MEDS: Ezetimibe 10 MG TAB PO SCH (08:47)
[2018-02-01] MEDS: Clopidogrel Bisulfate 75 MG TAB PO SCH (08:47)
[2018-02-01] MEDS: Carbidopa/Levodopa CR 50-200 mg Tablet PO SCH ×3 (08:47→20:55)
[2018-02-01] MEDS: Polyethylene Glycol 3350 17 GM Packet PO SCH (08:48)
[2018-02-01] MEDS: rOPINIRole HCl 1 MG TAB PO SCH ×3 (08:51→20:58)
[2018-02-01] MEDS ORDERED: Prevnar 13-Val Conj/PF 0.5 ML SYRINGE IM ONE (09:00)
--- NOTE | 2018-02-01 16:22 | PDOC.PN ---
- Subjective Encounter Start Date: 02/01/18 Encounter Start Time: 09:00 Pt seen for followup re: sepsis. Denies chest pain, shortness of breath, fevers or chills. R foot pain+ - Objective Resuscitation Status: Resuscitation Status FULL:Full Resuscitation MAR Reviewed: Yes Vital Signs & Weight: Vital Signs (12 hours) Temp Pulse Resp BP Pulse Ox 02/01/18 15:41 97.9 F 48 L 18 116/56 L 98 02/01/18 12:50 98.2 F 51 L 18 102/49 L 97 02/01/18 07:59 98.5 F 58 L 18 122/60 98 02/01/18 07:48 98.3 F 61 20 02/01/18 05:31 98.3 F 61 20 110/56 L 98 Weight Admit Weight 260 lb Weight 260 lb I&O: 01/31/18 02/01/18 02/02/18 06:59 06:59 06:59 Intake Total 500 Balance 500 Result Diagrams: 02/01/18 03:17 02/01/18 03:17 EKG Reviewed by me: Yes (Tele: sinus bradycardia) Phys Exam - Physical Examination Constitutional: NAD HEENT: moist MMs Neck: supple Respiratory: clear to auscultation bilateral S1, S2, reg, colin Gastrointestinal: soft Neurological: moves all 4 limbs tremor+ Psychiatric: normal affect Deviation from normal: R great toe infection Dx/Plan (1) Sepsis Code(s): A41.9 - SEPSIS, UNSPECIFIED ORGANISM Status: Acute Comment: Continue IV antibiotics as below (2) Bradycardia Code(s): R00.1 - BRADYCARDIA, UNSPECIFIED Status: Acute Comment: Pt is not on beta blockers or CCB. Continue to monitor on tele, consult cardiology (3) Toe infection Code(s): L08.9 - LOCAL INFECTION OF THE SKIN AND SUBCUTANEOUS TISSUE, UNSP Status: Chronic Comment: Wound care to see patient, continue IV antibiotics as below (4) HTN (hypertension) Code(s): I10 - ESSENTIAL (PRIMARY) HYPERTENSION Status: Chronic Comment: Controlled, continue to monitor vital signs and titrate antihypertensives as needed (5) Hypothyroidism Code(s): E03.9 - HYPOTHYROIDISM, UNSPECIFIED Status: Chronic Comment: continue thyroid replacement therapy - Plan continue antibiotics, out of bed/ambulate * . Review of Systems - Review of Systems Constitutional: negative: fever, chills, sweats, weakness, malaise Respiratory: negative: Cough, Shortness of Breath, SOB with Excertion, Pleuritic Pain, Wheezing Cardiovascular: negative: chest pain, palpitations, orthopnea, paroxysmal nocturnal dyspnea, edema, light headedness Musculoskeletal: Foot Pain - Medications/Allergies Allergies/Adverse Reactions: Allergies Allergy/AdvReac Type Severity Reaction Status Date / Time latex Allergy Verified 02/01/18 02:21 Medications: Current Medications Acetaminophen (Tylenol) 650 mg PO Q4H PRN PRN Reason: Headache/Fever or Pain Amantadine HCl (Symmetrel) 100 mg PO BID [facility] Last Admin: 02/01/18 08:47 Dose: 100 mg Ascorbic Acid (Vitamin C) 500 mg PO DAILY [facility] Last Admin: 02/01/18 08:47 Dose: 500 mg Aspirin (Aspirin) 325 mg PO DAILY [facility] Last Admin: 02/01/18 08:47 Dose: 325 mg Atorvastatin Calcium (Lipitor) 20 mg PO [facility] Carbidopa/Levodopa (Sinemet Cr 50/200) 1 tab PO TID [facility] Last Admin: 02/01/18 14:11 Dose: 1 tab Clopidogrel Bisulfate (Plavix) 75 mg PO DAILY [facility] Last Admin: 02/01/18 08:47 Dose: 75 mg Ezetimibe (Zetia) 10 mg PO DAILY [facility] Last Admin: 02/01/18 08:47 Dose: 10 mg Entacapone (Comtan) 200 mg PO TID [facility] Last Admin: 02/01/18 14:12 Dose: 200 mg HCTZ/Losartan Potassium (Hyzaar 50/12.5) 1 tab PO DAILY [facility] Last Admin: 02/01/18 08:47 Dose: 1 tab Piperacillin Sod/Tazobactam (Sod 3.375 gm/ Sodium Chloride) 100 mls @ 200 mls/ hr IVPB Q6HR [facility] Last Admin: 02/01/18 13:10 Dose: 100 mls Vancomycin HCl 1.75 gm/ Sodium (Chloride) 500 mls @ 250 mls/hr IVPB 2300 [facility] Sodium Chloride (Normal Saline 0.9%) 1,000 mls @ 100 mls/hr IV .Q10H [facility] Last Admin: 02/01/18 14:13 Dose: 1,000 mls Ondansetron HCl (Zofran) 4 mg IVP Q6H PRN PRN Reason: Nausea/Vomiting Pantoprazole Sodium (Protonix) 40 mg PO HS [facility] Polyethylene Glycol (Miralax) 17 gm PO DAILY [facility] Last Admin: 02/01/18 08:48 Dose: 17 gm Ropinirole HCl (Requip) 3 mg PO TID [facility] Last Admin: 02/01/18 15:40 Dose: 3 mg Sertraline HCl (Zoloft) 100 mg PO DAILY [facility] Last Admin: 02/01/18 08:47 Dose: 100 mg
[2018-02-01] MEDS: Atorvastatin Calcium 20 MG TAB PO SCH (20:55)
[2018-02-01] MEDS: Vancomycin HCl 1.75 GM in Sodium Chloride 0.9% 500 ML IVPB SCH (22:45)
[2018-02-02] MEDS: Piperacillin/Tazobactam 3.375 GM in Sodium Chloride 0.9% 100 ML IVPB SCH ×4 (01:28→18:49)
[2018-02-02] MEDS: Sodium Chloride 0.9% 1,000 ML IV SCH ×2 (01:28→19:56)
[2018-02-02] MEDS: Polyethylene Glycol 3350 17 GM Packet PO SCH (08:38)
[2018-02-02] MEDS: rOPINIRole HCl 1 MG TAB PO SCH ×3 (08:39→19:53)
[2018-02-02] MEDS: Amantadine HCl 100 mg Capsule PO SCH ×2 (08:41→19:53)
[2018-02-02] MEDS: Entacapone 200 mg Tablet PO SCH ×3 (08:41→19:53)
[2018-02-02] MEDS: Ascorbic Acid 500 mg Chewable Tablet PO SCH (08:41)
[2018-02-02] MEDS: Clopidogrel Bisulfate 75 MG TAB PO SCH (08:41)
[2018-02-02] MEDS: Ezetimibe 10 MG TAB PO SCH (08:41)
[2018-02-02] MEDS: Aspirin 325 MG TAB PO SCH (08:41)
[2018-02-02] MEDS: Carbidopa/Levodopa CR 50-200 mg Tablet PO SCH ×3 (08:41→19:53)
--- NOTE | 2018-02-02 10:18 | PDOC.PN ---
- Subjective Encounter Start Date: 02/02/18 Encounter Start Time: 13:30 Subjective: Patient feeling better since admit. Thinks redness on foot a bit better -: also. No fever/SOB/N/V/CP. - Objective Resuscitation Status: Resuscitation Status FULL:Full Resuscitation MAR Reviewed: Yes Vital Signs & Weight: Vital Signs (12 hours) Temp Pulse Resp BP Pulse Ox 02/02/18 07:45 98 F 57 L 20 136/62 98 02/02/18 04:02 98 F 56 L 20 148/68 H 97 02/01/18 23:57 98.9 F 55 L 20 126/93 H 97 Weight Admit Weight 260 lb Weight 260 lb I&O: 02/01/18 02/02/18 02/03/18 06:59 06:59 06:59 Intake Total 3402 Output Total 930 Balance 2472 Result Diagrams: 02/01/18 03:17 02/01/18 03:17 Phys Exam - Physical Examination Constitutional: NAD HEENT: moist MMs Respiratory: no wheezing, no rales, no rhonchi Cardiovascular: RRR, no significant murmur Gastrointestinal: soft, positive bowel sounds Musculoskeletal: no edema right great toe with swelling, erythema to MTP joint, TTP, foul smell Psychiatric: normal affect, A&O x 3 Dx/Plan (1) Toe infection Code(s): L08.9 - LOCAL INFECTION OF THE SKIN AND SUBCUTANEOUS TISSUE, UNSP Status: Chronic Comment: Wound care to see patient, continue IV antibiotics Zosyn and Vanc since 02/01/18, general surgery consultation (2) Sepsis Code(s): A41.9 - SEPSIS, UNSPECIFIED ORGANISM Status: Acute Comment: Continue IV antibiotics (3) HTN (hypertension) Code(s): I10 - ESSENTIAL (PRIMARY) HYPERTENSION Status: Chronic Comment: Controlled, continue to monitor vital signs and titrate antihypertensives as needed (4) Bradycardia Code(s): R00.1 - BRADYCARDIA, UNSPECIFIED Status: Acute Comment: Pt is not on beta blockers or CCB. Continue to monitor on tele, consult cardiology (5) Hypothyroidism Code(s): E03.9 - HYPOTHYROIDISM, UNSPECIFIED Status: Chronic Comment: continue thyroid replacement therapy (6) Osteomyelitis of toe of right foot Code(s): M86.9 - OSTEOMYELITIS, UNSPECIFIED Status: Acute Comment: MRI done 11 days ago here shows osteomyelitis of the toe, needs surgical consulation and amputation - Plan cont current plan of care, continue antibiotics, PT/OT, DVT proph w/lovenox * . - Discharge Day Encounter end time: 13:40
[2018-02-02] MEDS ORDERED: Enoxaparin Sodium 40 MG/0.4 ML SYRINGE SC SCH (10:30)
[2018-02-02] MEDS: Atorvastatin Calcium 20 MG TAB PO SCH (19:53)
[2018-02-02 22:57] LABS: Vancomycin, Trough 10.7 ug/mL
[2018-02-02] MEDS: Vancomycin HCl 1.75 GM in Sodium Chloride 0.9% 500 ML IVPB SCH (23:40)
[2018-02-03] MEDS: Sodium Chloride 0.9% 1,000 ML IV SCH ×3 (03:08→16:05)
[2018-02-03] MEDS: Piperacillin/Tazobactam 3.375 GM in Sodium Chloride 0.9% 100 ML IVPB SCH ×4 (03:08→19:23)
[2018-02-03 05:41] LABS: Calcium 8.1 mg/dL (7.8-10.44); Carbon Dioxide 21 mmol/L (23-31)
[2018-02-03 06:26] LABS: Chloride 105 mmol/L (98-107); Potassium 3.7 mmol/L (3.5-5.1); Sodium 136 mmol/L (136-145)
[2018-02-03 06:27] LABS: Glucose 115 mg/dL (83-110)
[2018-02-03 06:30] LABS: Calc. Creatinine Clearance 118 mL/min (70-130); Estimated GFR-MDRD 81
[2018-02-03 06:31] LABS: BUN (Urea Nitrogen) 15 mg/dL (8.4-25.7)
--- NOTE | 2018-02-03 06:35 | CON ---
DATE OF CONSULTATION: 02/02/2018 HISTORY OF PRESENT ILLNESS: Obie Hill is a 77-year-old, white male, first evaluated in 02/2016. He was complaining of chest tightness when he would be getting into bed to go to sleep, which would last for 15-30 minutes. He would never get this with exertion. He would have at least 2 episodes per day. On , he underwent adenosine Cardiolite testing at [place], which revealed lateral wall ischemia and ejection fraction of 63%. With that history , it was recommended that he undergo cardiac catheterization. This was performed on 03/13/2016. There was normal left ventricular function, ejection fraction of 50% to 55%. There was a 20% proximal LAD, 30% first diagonal, 99% lesion in a large first marginal, and a smaller normal right coronary artery. He underwent placement of the Synergy 3.5 x 20 mm stent in the first obtuse marginal. He denies any recurrence of that type of chest discomfort since. He was last seen in the office in 07/2017 complaining of left thigh cramping. He was given compression stockings by the [facility] for his venous insufficiency; however, with his Parkinson's disease, he could not get them on. He was doing well until the day before yesterday when he was apparently working out in his shop, which was very warm. To me, he denies any true syncope and never fell to the ground, although there is some discrepancy in history. Apparently, he had blood pressure of 70 systolic when paramedics arrived, and he was brought to the hospital. He denies any chest discomfort. PAST MEDICAL HISTORY: Hypertension, hypothyroidism, peptic ulcer disease, Parkinson's disease, hypercholesterolemia, venous insufficiency. OPERATIONS: Tonsillectomy, wrist surgery, stent placement in the first obtuse marginal. MEDICATIONS: Include amantadine 100 mg b.i.d., vitamin C 500 mg daily, aspirin 81 daily, atorvastatin 80 mg 1/2 tablet daily, Zetia 10 mg daily, carbidopa/ levodopa 1 tablet t.i.d., clopidogrel 75 mg daily, losartan/hydrochlorothiazide 50/12.5 daily, pantoprazole 40 at bedtime, polyethylene glycol 17 grams daily, ropinirole 3 mg t.i.d., sertraline 100 mg daily, Flomax 0.4 daily. ALLERGIES: LATEX. SOCIAL HISTORY: He does not smoke. He has one drink per day. FAMILY HISTORY: Negative for coronary artery disease. REVIEW OF SYSTEMS: Twelve-point review of systems is otherwise unremarkable. PHYSICAL EXAMINATION: VITAL SIGNS: Blood pressure 146/67, pulse of 47. HEENT: PERRL. NECK: Supple. CHEST: Clear. CARDIAC: S1, S2 normal, without any S3, S4 or murmurs. ABDOMEN: Normal bowel sounds, without tenderness, organomegaly. EXTREMITIES: Revealed no clubbing, cyanosis or edema. There is bilateral lower extremity discoloration. NEUROLOGIC: Grossly intact except for the Parkinson's. LABORATORY DATA AND IMAGING: EKG revealed normal sinus rhythm with a rate of 81 per minute and was normal. Hemoglobin 11.6, hematocrit 35.1, white count 10, 400, platelets 94,000. On admission, BUN was 30, creatinine 1.66. Today, sodium 131, potassium 3.8, chloride 106, carbon dioxide 23, BUN 28, creatinine 1.39. Cardiac enzymes were unremarkable. Three weeks ago, cholesterol was 108 , triglycerides 56, HDL 43, LDL 54. IMPRESSION: 1. Episode of weakness and disorientation. I am uncertain in talking to the patient if he truly had loss of consciousness or if he truly had syncope. 2. Sinus bradycardia with heart rates in the mid to low 40s. He does not appear to be symptomatic with that. 3. Coronary artery disease, status post stent placement in the first obtuse marginal in 03/2016. He has not had recurrence of chest pain since that time. 4. Parkinson's. 5. Hypertension. 6. Hypercholesterolemia. 7. Venous insufficiency. PLAN: The patient will continue to be monitored. I am not certain that he is symptomatic from his bradycardia. Consideration may need to be given to sending him home with the monitor versus consideration of implantable loop recorder. I will follow the patient with you. ADRIANNA
[2018-02-03 07:09] LABS: Anion Gap 14 mmol/L (10-20)
[2018-02-03 07:48] LABS: #Lymphocytes 0.3 thou/uL (1.20-3.40); #Monocytes 0.4 thou/uL (0.11-0.59); #Neutrophils 3.8 thou/uL (1.40-6.50); %Eosinophils 0.7 % (0.0-10.0); %Lymphocytes 7.4 % (21.0-51.0); Acanthocytes SLIGHT = 1-5 cells (100X) (None Seen); Burr Cells MODERATE= 6-15 cells (100X) (0-1/hpf); Elliptocytes SLIGHT = 2-5 cells (100X) (0-1/hpf); Hemoglobin 11.4 g/dL (14.0-18.0); MDiff Complete? YES; Mean Corpuscular HGB CONC 31.1 g/dL (32.0-36.0); Mean Corpuscular Hemoglobin 29.3 pg (27.0-31.0); Mean Corpuscular Volume 94.1 fL (78.0-98.0); Mean Platelet Volume 11.6 fL (7.4-10.4); PLT Morphology Comment Appears Decreased; Platelet Count 90 thou/uL (130-400); RBC Distribution Width 14.1 % (11.5-14.5); Red Blood Cell (RBC) Count 3.91 mill/uL (4.70-6.10); White Blood Cell (WBC) Count 4.6 thou/uL (4.8-10.8)
[2018-02-03 07:49] LABS: Platelet Count 90 thou/uL (130-400)
[2018-02-03] MEDS: Carbidopa/Levodopa CR 50-200 mg Tablet PO SCH ×3 (08:52→19:23)
[2018-02-03] MEDS: Ezetimibe 10 MG TAB PO SCH (08:52)
[2018-02-03] MEDS: Amantadine HCl 100 mg Capsule PO SCH ×2 (08:52→19:23)
[2018-02-03] MEDS: Clopidogrel Bisulfate 75 MG TAB PO SCH (08:52)
[2018-02-03] MEDS: Aspirin 325 MG TAB PO SCH (08:52)
[2018-02-03] MEDS: rOPINIRole HCl 1 MG TAB PO SCH ×3 (08:52→19:23)
[2018-02-03] MEDS: Ascorbic Acid 500 mg Chewable Tablet PO SCH (08:52)
[2018-02-03] MEDS: Polyethylene Glycol 3350 17 GM Packet PO SCH (08:53)
[2018-02-03] MEDS: Entacapone 200 mg Tablet PO SCH ×3 (08:53→19:24)
[2018-02-03] MEDS ORDERED: Enoxaparin Sodium 40 MG/0.4 ML SYRINGE SC SCH (09:00)
--- NOTE | 2018-02-03 10:13 | PDOC.PN ---
- Subjective Encounter Start Date: 02/03/18 Encounter Start Time: 11:30 Subjective: Patient without fever. Feeling much better. Redness better on toe as well. - Objective Resuscitation Status: Resuscitation Status FULL:Full Resuscitation MAR Reviewed: Yes Vital Signs & Weight: Vital Signs (12 hours) Temp Pulse Resp BP Pulse Ox 02/03/18 08:00 99.0 F 56 L 12 93 L 02/03/18 07:37 99.0 F 56 L 12 113/53 L 93 L 02/03/18 05:27 98.4 F 73 18 116/56 L 94 L Weight Admit Weight 260 lb Weight 265 lb 8 oz I&O: 02/02/18 02/03/18 02/04/18 06:59 06:59 06:59 Intake Total 3402 4194 Output Total 930 5375 Balance 7162 2508 Result Diagrams: 02/03/18 07:30 02/03/18 04:41 Phys Exam - Physical Examination Constitutional: NAD HEENT: moist MMs Respiratory: no wheezing, no rales, no rhonchi Cardiovascular: RRR, no significant murmur Gastrointestinal: soft, positive bowel sounds right great toe with markedly improved redness, still with some foul smell Neurological: non-focal, moves all 4 limbs Psychiatric: normal affect, A&O x 3 Dx/Plan (1) Toe infection Code(s): L08.9 - LOCAL INFECTION OF THE SKIN AND SUBCUTANEOUS TISSUE, UNSP Status: Chronic Comment: Wound care to see patient, continue IV antibiotics Zosyn and Vanc since 02/01/18, general surgery consultation (2) Osteomyelitis of toe of right foot Code(s): M86.9 - OSTEOMYELITIS, UNSPECIFIED Status: Acute Comment: MRI done 11 days ago here shows osteomyelitis of the toe, needs surgical consulation and amputation (3) Sepsis Code(s): A41.9 - SEPSIS, UNSPECIFIED ORGANISM Status: Acute Comment: Continue IV antibiotics (4) HTN (hypertension) Code(s): I10 - ESSENTIAL (PRIMARY) HYPERTENSION Status: Chronic Comment: Controlled, continue to monitor vital signs and titrate antihypertensives as needed (5) Bradycardia Code(s): R00.1 - BRADYCARDIA, UNSPECIFIED Status: Acute Comment: Pt is not on beta blockers or CCB. Continue to monitor on tele, consult cardiology (6) Hypothyroidism Code(s): E03.9 - HYPOTHYROIDISM, UNSPECIFIED Status: Chronic Comment: continue thyroid replacement therapy (7) Thrombocytopenia Code(s): D69.6 - THROMBOCYTOPENIA, UNSPECIFIED Status: Acute Comment: holding Lovenox - Plan cont current plan of care, continue antibiotics Lovenox d/c'd due to low platelets -: Awaiting surgical consultation, if patient chooses antibiotic treatment -: instead of amputation will need to get ID consult to assist with abx plan. * . - Discharge Day Encounter end time: 11:45
--- NOTE | 2018-02-03 11:19 | CON ---
DATE OF CONSULTATION: 02/03/2018 REASON FOR CONSULT: Osteomyelitis of the right great toe. HISTORY OF PRESENT ILLNESS: Mr. Hill is a 77-year-old man with a chronic ulcer on his right great toe for the past year. This has been treated conservatively by Dr. Campbell. He recently went to see Dr. Sr and had an MRI done of his foot which revealed osteomyelitis. He discussed his options with Dr. Sr and they decided to pursue conservative management with long-term antibiotics. He was admitted to the hospital on the after having a syncopal or near syncopal event. He states t hat he collapsed in his workshop and that it was felt that this was due to dehydration. He has not h ad any fevers or chills and he has very little pain, redness, or swelling in his toe. He states that it was more red and swollen before starting on antibiotics, but this has improved since he began ant ibiotics a few days ago. 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 He sees Dr. Campbell. PAST MEDICAL HISTORY: Parkinson's, coronary artery disease, hypertension, hypothyroidism, and histor y of peptic ulcer disease. PAST SURGICAL HISTORY: Tonsillectomy, wrist surgery, PTCA in 2016. REVIEW OF SYSTEMS: Ten system review of systems is negative except per HPI. The patient denies any shortness of breath or chest pain related to his near syncopal event. OUTPATIENT MEDICATIONS: Include amantadine, carbidopa/levodopa, ____, losartan, hydrochlorothiazide, sertraline, ropinirole, atorvastatin, Plavix, pantoprazole, aspirin, vitamin C, vitamin D, tamsulosi n, Pradaxa, clobetasol ointment and p.r.n. acetaminophen. INPATIENT MEDICATIONS: Amantadine, vitamin C, aspirin, atorvastatin, carbidopa/levodopa, Plavix, sub cutaneous Lovenox, ____ ____, hydrochlorothiazide/losartan, pantoprazole, Zosyn, vancomycin, MiraLax, ropinirole, sertraline, ALLERGIES: He reports an allergy to LATEX. SOCIAL HISTORY: He lives with his . Does not smoke or use illicit drugs and drinks rarely. FAMILY HISTORY: Diabetes and cancer. PHYSICAL EXAMINATION: VITAL SIGNS: The patient has been afebrile since his admission to the hospital, heart rate ranges fr om the 40s into the 70s, respiratory rate 12-18, 93-100% saturated on 2 liters nasal cannula, blood p ressure also somewhat variable from the 110-150 range systolic. GENERAL: Reveals a healthy appearing older gentleman who is moving about without any apparent diffic ulty. He is not flushed or toxic in appearance. He is not jaundiced or icteric. HEENT: Unremarkable. NECK: Supple, without lymphadenopathy or thyroid nodules. HEART: Regular in its rate and rhythm. I do not appreciate any murmurs, rubs, or gallops. LUNGS: Clear to auscultation bilaterally. ABDOMEN: Soft, nontender and nondistended. EXTREMITIES: Warm and well perfused. He has good dorsalis pedis pulses bilaterally. His right toe is slightly swollen, but no significant erythema and his forefoot is normal. He has a callus with an ulcer on the plantar surface of his right great toe with no bone palpable in the wound and no expres sible drainage. His left foot does not have any ulcers or wounds. NEUROLOGIC: Grossly intact to light touch and pinprick. No focal deficits, although his movements a re somewhat slow. PSYCHIATRIC: Alert, oriented and appropriate. LABORATORY DATA: White count was normal on admission, although he did have bandemia. Hematocrit 39 and has been basically stable. BUN and creatinine were elevated on admission at 30 and 1.66, but hav e come down with hydration. Lactate also came down with resuscitation to normal and bilirubin was mi ldly elevated at 1.4, but other LFTs were normal to low. X-RAYS: Plain film of the foot was unremarkable on admission, but an MRI of the foot in December ordered by Dr. Juan showed osteomyelitis of the distal phalanx of the great toe on the right foot as well as osteonecrosis of a sesamoid and extrinsic atrophy of the intrinsic foot musculature. 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 The patient already has [facility]abli [facility] and has decided on conservative management for attempted to salvag e with Dr. Looney. He is not interested in amputation at this time. With his Parkinson's and other medical issues, this could definitely affect his balance and he would prefer to avoid this if it is not absolutely necessary. I have recommended debridement of the callus and will see him with the [facility] team for this. He does not desire amputation and does not seem to require surgical debrideme nt of the wound beyond what can be accomplished at the bedside. He can follow up with me on an as needed basis. If he fails conservative management, toe amputation can be performed either by myself or by his tag writer, Dr. Campbell.
[2018-02-03] MEDS: Vancomycin HCl 1.25 GM in Sodium Chloride 0.9% 250 ML 250 ML IVPB SCH ×2 (12:30→23:32)
[2018-02-03] MEDS: Atorvastatin Calcium 20 MG TAB PO SCH (19:23)
[2018-02-04] MEDS: Piperacillin/Tazobactam 3.375 GM in Sodium Chloride 0.9% 100 ML IVPB SCH ×3 (00:55→17:44)
[2018-02-04] MEDS: Ascorbic Acid 500 mg Chewable Tablet PO SCH (09:47)
[2018-02-04] MEDS: Ezetimibe 10 MG TAB PO SCH (09:47)
[2018-02-04] MEDS: Carbidopa/Levodopa CR 50-200 mg Tablet PO SCH ×3 (09:47→21:13)
[2018-02-04] MEDS: Sodium Chloride 0.9% 1,000 ML IV SCH ×2 (09:47→16:59)
[2018-02-04] MEDS: rOPINIRole HCl 1 MG TAB PO SCH ×3 (09:47→21:13)
[2018-02-04] MEDS: Entacapone 200 mg Tablet PO SCH ×3 (09:48→21:12)
[2018-02-04] MEDS: Aspirin 325 MG TAB PO SCH (09:48)
[2018-02-04] MEDS: Clopidogrel Bisulfate 75 MG TAB PO SCH (09:48)
[2018-02-04] MEDS: Amantadine HCl 100 mg Capsule PO SCH ×2 (09:48→21:12)
[2018-02-04] MEDS: Polyethylene Glycol 3350 17 GM Packet PO SCH (09:49)
[2018-02-04 10:16] LABS: Vancomycin, Trough 15.5 ug/mL
[2018-02-04] MEDS: Vancomycin HCl 1.25 GM in Sodium Chloride 0.9% 250 ML 250 ML IVPB SCH ×2 (11:45→22:23)
--- NOTE | 2018-02-04 13:19 | PDOC.PN ---
- Subjective Encounter Start Date: 02/04/18 Encounter Start Time: 08:20 -: old records requested/rev Pt seen and examined, chart reviewed in its entirety, this is my first visit with this patient Followup for right halluxcellulitis, osteo and Molina III diabetic neuropathic ulcer. In vanc adn Zosyn, no cultres, BCx X 1 of 2 sets with proteus No F/C, no N/V/D/C, no CP, no SOB All systems reviewed and neg for all except as above - Objective Resuscitation Status: Resuscitation Status FULL:Full Resuscitation MAR Reviewed: Yes Vital Signs & Weight: Vital Signs (12 hours) Temp Pulse Resp BP BP Pulse Ox 02/04/18 07:52 97.6 F 69 18 125/59 L 89 L 02/04/18 04:17 100.0 F H 66 30 H 135/63 92 L Weight Admit Weight 260 lb Weight 265 lb 1.6 oz I&O: 02/03/18 02/04/18 02/05/18 06:59 06:59 06:59 Intake Total 4194 1717 Output Total 1825 475 Balance 2369 1242 Result Diagrams: 02/03/18 07:30 02/03/18 04:41 Radiology Reviewed by me: Yes EKG Reviewed by me: Yes Phys Exam - Physical Examination Constitutional: NAD HEENT: PERRLA, moist MMs, sclera anicteric, oral pharynx no lesions Neck: no nodes, no JVD, supple, full ROM Respiratory: no wheezing, no rales, no rhonchi, clear to auscultation bilateral Cardiovascular: RRR, no significant murmur, no rub Gastrointestinal: soft, non-tender, no distention, positive bowel sounds Musculoskeletal: pulses present, edema present Neurological: non-focal, normal sensation, moves all 4 limbs Lymphatic: no nodes Psychiatric: normal affect, A&O x 3 Skin: no rash, normal turgor, cap refill <2 seconds Deviation from normal: plantar right hallux ulcer covered and not undressed Dx/Plan (1) Diabetic autonomic neuropathy associated with type 2 diabetes mellitus Code(s): E11.43 - TYPE 2 DIABETES W DIABETIC AUTONOMIC (POLY)NEUROPATHY Status : Chronic (2) Ulcer of foot with fat layer exposed Code(s): L97.502 - NON-PRS CHRONIC ULCER OTH PRT UNSP FOOT W FAT LAYER EXPOSED Status: Chronic Qualifiers: Laterality: right Qualified Code(s): L97.512 - Non-pressure chronic ulcer of other part of right foot with fat layer exposed (3) Bradycardia Code(s): R00.1 - BRADYCARDIA, UNSPECIFIED Status: Acute Comment: Pt is not on beta blockers or CCB. Continue to monitor on tele, consult cardiology (4) Osteomyelitis of toe of right foot Code(s): M86.9 - OSTEOMYELITIS, UNSPECIFIED Status: Acute Comment: MRI done 11 days ago here shows osteomyelitis of the toe, needs surgical consulation and amputation (5) Sepsis Code(s): A41.9 - SEPSIS, UNSPECIFIED ORGANISM Status: Acute Qualifiers: Sepsis type: sepsis due to unspecified organism Qualified Code(s): A41.9 - Sepsis, unspecified organism Comment: Continue IV antibiotics (6) Thrombocytopenia Code(s): D69.6 - THROMBOCYTOPENIA, UNSPECIFIED Status: Acute Comment: holding Lovenox (7) HTN (hypertension) Code(s): I10 - ESSENTIAL (PRIMARY) HYPERTENSION Status: Chronic Qualifiers: Hypertension type: essential hypertension Qualified Code(s): I10 - Essential (primary) hypertension Comment: Controlled, continue to monitor vital signs and titrate antihypertensives as needed (8) Hypothyroidism Code(s): E03.9 - HYPOTHYROIDISM, UNSPECIFIED Status: Chronic Qualifiers: Hypothyroidism type: acquired Qualified Code(s): E03.9 - Hypothyroidism, unspecified Comment: continue thyroid replacement therapy - Plan cont current plan of care, continue antibiotics, PT/OT * . refused amputation, needs 6-8 weeks of IV Vanc plus high dosed po Cipro or IV rocephin pending sensitivities of Proteus, repeat Cx sent. Get PICC today. Would benefit from HBO rx, will defer to the wound care center
--- NOTE | 2018-02-04 15:12 | SPC ---
SONOGRAPHIC GUIDED LEFT UPPER EXTREMITY PICC: History: Osteomyelitis. FINDINGS: After explaining the procedure and answering all questions, left arm was prepped and draped in the us ua sterile fashion. Sterile technique, buffered local anesthesia, sonographic guidance, and 22 gauge needle were used to carefully access the left basilic vein. Standard technique was then used to plac e the tip of a 5 Vietnamese dual lumen PICC with the tip at the level of the superior vena cava. Catheter was flushed and secured externally. Patient tolerated the procedure well and was returned in unchang ed condition. IMPRESSION: Technically successful left upper extremity PICC placement. Catheter now ready for use. POS: [facility]
[2018-02-04] MEDS: Atorvastatin Calcium 20 MG TAB PO SCH (21:13)
[2018-02-04] MEDS: Cefepime 2 GM in Sodium Chloride 0.9% 100 ML IVPB SCH (21:13)
[2018-02-05] MEDS: Sodium Chloride 0.9% 1,000 ML IV SCH ×2 (02:26→16:44)
[2018-02-05 04:25] LABS: Bilirubin Negative (Negative); Blood, Urine Negative (Negative); Clarity CLEAR (Clear); Glucose, Urine (Dipstick) Negative (Negative); Leukocyte Negative (Negative); Nitrite Negative (Negative); Protein, Urine (Dipstick) Negative (Neg-Trace); Specific Gravity, Urine 1.016 (1.002-1.036); Urobilinogen 0.2 mg/dL (0.2-1.0); pH, Urine 5.5 (5.0-9.0)
[2018-02-05 04:27] LABS: Bacteria/HPF None Seen HPF (None Seen); Hyaline Casts/LPF 0-3 HYALINE CAST LPF (0-3 Hyaline); Squamous Epithelial None Seen HPF (0-3); WBC/HPF 0-3 HPF (0-3)
--- NOTE | 2018-02-05 05:23 | CON ---
DATE OF CONSULTATION: 02/04/2018 REASON FOR CONSULTATION: Bacteremia with fever and history of right foot osteomyelitis. HISTORY OF PRESENT ILLNESS: A 77-year-old gentleman who has a history of Parkinson's disease, hyperl ipidemia and hypertension and a chronic right first toe ulcer with a recent diagnosis of osteomyeliti s per MRI scan last month. He was evaluated by Dr. Juan [facility]. The patient is admitted at this time because of new onset of syncopal event with fall and hypotension systolic in t he 70s. The patient had noticed some confusional state and weakness. No documented fever, although he did have chills. He also noticed increased urinary frequency for the past 2 days. No headaches, no visual symptoms, sore throat, odynophagia, dysphagia, no cough or dyspnea, no chest pain, no abdom inal pain, no joint symptoms. PAST MEDICAL HISTORY: Parkinson's disease, hypothyroidism, and chronic right first toe ulcer with ev idence of osteomyelitis by MRI scan. HOME MEDICATIONS: Amantadine, Sinemet, Decadron, losartan, hydrochlorothiazide, Zoloft, atenolol, at orvastatin, Plavix, pantoprazole, aspirin, Pradaxa. ALLERGIES: LATEX. SOCIAL HISTORY: He lives in the area, drinks daily 1 dose of liquor. Lives with . FAMILY HISTORY: Type 2 diabetes. PHYSICAL EXAMINATION: GENERAL: The patient is sitting by the bedside. VITAL SIGNS: T-max 100, blood pressure 120/59, pulse 69, respirations 18, O2 sat 89% to 90%. SKIN: Shows area of slight erythema in the right first toe with shallow ulceration at the base of th e distal phalanx skin site right first toe. Areas of stasis dermatitis in lower extremity with a sym metric distribution. No lymphadenopathy. HEENT: Ocular movements conjugate. Oral cavity moist, quite a few teeth in place. NECK: Supple. LUNGS: With symmetric clear breath sounds. HEART: S1, S2, regular rate. ABDOMEN: Soft, not distended, no bladder distention. EXTREMITIES: No joint inflammatory activity. Pulses are 1+ in dorsalis pedis. NEUROLOGIC: The patient has extent of flexor plantar reflexes. He has hypomotility, cogwheel rigidi ty in all 4 extremities with a resting tremor noted. He is oriented, follows commands. LABORATORY DATA: White cell count 9.1, hemoglobin 13, platelets 112 with 70% neutrophils, 24% bands. Chemistry: Sodium 137, creatinine 1.66 and now 0.91, bilirubin 1.4, AST 14, ALT less than 7, album in 3.0. Urinalysis was not done. Chest x-ray with no acute process. One out of two sets of blood c ultures with Proteus species identified. He was evaluated by Dr. Cam, and he recommended followu p in the clinic after patient decided to attempt to avoid amputation at this point in time. ASSESSMENT: 1. Parkinson's disease. 2. Chronic ulcer, right first distal phalanx ulceration with osteomyelitis. 3. New onset of fever, chills with bacteremia secondary to Proteus. 4. Urinary frequency. DISCUSSION: Differential diagnosis includes a bacteremia secondary to respiratory, urinary tract or other intra-abdominal inflammatory process versus bacteremia from the right first toe. The inflammat ory process, when compared with previous photos that the was able to show me, demonstrates a dec rease in the amount of erythema and swelling, so we need to rule out other alternate sources of the b acteremia. We will start with CT of abdomen and pelvis with contrast to evaluate that. Submit urina lysis and urine culture as well.
[2018-02-05 05:47] LABS: #Eosinphils 0.1 thou/uL (0.0-0.7); #Lymphocytes 0.7 thou/uL (1.20-3.40); #Monocytes 0.5 thou/uL (0.11-0.59); #Neutrophils 3.3 thou/uL (1.40-6.50); %Basophils 0.4 % (0.0-1.0); %Eosinophils 2.7 % (0.0-10.0); %Lymphocytes 15.4 % (21.0-51.0); %Neutrophils 70.6 % (42.0-75.0); Hemoglobin 11.8 g/dL (14.0-18.0); Mean Corpuscular HGB CONC 32.4 g/dL (32.0-36.0); Mean Corpuscular Hemoglobin 29.9 pg (27.0-31.0); Mean Corpuscular Volume 92.2 fL (78.0-98.0); Mean Platelet Volume 8.5 fL (7.4-10.4); Platelet Count 106 thou/uL (130-400); RBC Distribution Width 13.8 % (11.5-14.5); Red Blood Cell (RBC) Count 3.94 mill/uL (4.70-6.10); White Blood Cell (WBC) Count 4.7 thou/uL (4.8-10.8)
[2018-02-05 06:03] LABS: Anion Gap 10 mmol/L (10-20); BUN (Urea Nitrogen) 14 mg/dL (8.4-25.7); Calc. Creatinine Clearance 115 mL/min (70-130); Calcium 8.9 mg/dL (7.8-10.44); Carbon Dioxide 25 mmol/L (23-31); Chloride 105 mmol/L (98-107); Estimated GFR-MDRD 79; Glucose 108 mg/dL (83-110); Magnesium 1.8 mg/dL (1.6-2.6); Potassium 3.3 mmol/L (3.5-5.1); Sodium 137 mmol/L (136-145)
--- NOTE | 2018-02-05 09:27 | CT ---
CT OF THE ABDOMEN AND PELVIS WITH IV CONTRAST: Date: 02/05/18 INDCIATION: Sepsis. Bacteremia. Urinary frequency. History of Parkinson's disease. COMPARISON: None. FINDINGS: There is moderate bilateral pleural effusions and bibasilar atelectasis. There is a small hiatal hernia. There is slight nodular contour of the liver, suspicious for changes of cirrhosis. Spleen is mildly prominent, measuring 13.9 cm. No varicosities are present. Pancreas and adrenal glands are normal appearing. Kidneys are normal appearing. Gallbladder is mildly distended, but otherwise normal appearing by CT. There is a small, fat-containing paraumbilical hernia. There is a mixture of stool and fluid within the colon without overt wall thickening. The appendix is not definitely demonstrated. No free fluid is evident. There is mild anasarca. There is diffuse osteopenia. There is scattered degenerative change. IMPRESSION: 1. Moderate bilateral pleural effusions with mild anasarca. 2. Bibasilar atelectasis. 3. Small hiatal hernia. 4. Nodular contour of the liver suspicious for changes of underlying cirrhosis. 5. Mild splenomegaly. 6. Fluid and stool seen within the colon can be related to a diarrheal state or mild colitis. No zainab inable fluid collection is evident. POS: [facility]
[2018-02-05] MEDS: rOPINIRole HCl 1 MG TAB PO SCH ×3 (09:43→20:01)
[2018-02-05] MEDS: Clopidogrel Bisulfate 75 MG TAB PO SCH (09:44)
[2018-02-05] MEDS: Entacapone 200 mg Tablet PO SCH ×3 (09:44→20:01)
[2018-02-05] MEDS: Ezetimibe 10 MG TAB PO SCH (09:44)
[2018-02-05] MEDS: Carbidopa/Levodopa CR 50-200 mg Tablet PO SCH ×3 (09:44→20:01)
[2018-02-05] MEDS: Ascorbic Acid 500 mg Chewable Tablet PO SCH (09:44)
[2018-02-05] MEDS: Amantadine HCl 100 mg Capsule PO SCH ×2 (09:44→20:01)
[2018-02-05] MEDS: Aspirin 325 MG TAB PO SCH (09:45)
[2018-02-05] MEDS: Cefepime 2 GM in Sodium Chloride 0.9% 100 ML IVPB SCH ×2 (09:45→20:01)
[2018-02-05] MEDS: Polyethylene Glycol 3350 17 GM Packet PO SCH (09:53)
[2018-02-05] MEDS: Vancomycin HCl 1.25 GM in Sodium Chloride 0.9% 250 ML 250 ML IVPB SCH ×2 (11:39→21:50)
--- NOTE | 2018-02-05 15:14 | PDOC.PN ---
- Subjective Encounter Start Date: 02/05/18 Encounter Start Time: 11:10 Pt feeling well, PICC placed to Left upper arm without incident 02/04. Timothy abx, no F/C,no N/V/d/c. Seen by Dr Mooney, ordered CT abd and pelvis. no fluid collections, mild colitis All systems reviewed and neg x as above - Objective Resuscitation Status: Resuscitation Status FULL:Full Resuscitation MAR Reviewed: Yes Vital Signs & Weight: Vital Signs (12 hours) Temp Pulse Resp BP BP Pulse Ox 02/05/18 11:50 98.0 F 88 16 122/60 94 L 02/05/18 08:00 98.2 F 65 16 91 L 02/05/18 07:20 98.2 F 65 16 145/66 H 90 L 02/05/18 04:41 98.2 F 61 18 135/63 93 L Weight Admit Weight 260 lb Weight 267 lb 9.6 oz I&O: 02/04/18 02/05/18 02/06/18 06:59 06:59 06:59 Intake Total 1717 1440 Output Total 475 500 Balance 1242 940 Result Diagrams: 02/05/18 05:07 02/05/18 05:07 Phys Exam - Physical Examination Constitutional: NAD HEENT: PERRLA, moist MMs, sclera anicteric, oral pharynx no lesions Neck: no nodes, no JVD, supple, full ROM Respiratory: no wheezing, no rales, no rhonchi, clear to auscultation bilateral Cardiovascular: RRR, no significant murmur, no rub Gastrointestinal: soft, non-tender, no distention, positive bowel sounds Musculoskeletal: no edema, pulses present Neurological: non-focal, normal sensation, moves all 4 limbs Lymphatic: no nodes Psychiatric: normal affect, A&O x 3 Skin: no rash, normal turgor, cap refill <2 seconds Deviation from normal: LUE PICC C/D/I Dx/Plan (1) Diabetic autonomic neuropathy associated with type 2 diabetes mellitus Code(s): E11.43 - TYPE 2 DIABETES W DIABETIC AUTONOMIC (POLY)NEUROPATHY Status : Chronic (2) Ulcer of foot with fat layer exposed Code(s): L97.502 - NON-PRS CHRONIC ULCER OTH PRT UNSP FOOT W FAT LAYER EXPOSED Status: Chronic Qualifiers: Laterality: right Qualified Code(s): L97.512 - Non-pressure chronic ulcer of other part of right foot with fat layer exposed (3) Bradycardia Code(s): R00.1 - BRADYCARDIA, UNSPECIFIED Status: Acute Comment: Pt is not on beta blockers or CCB. Continue to monitor on tele, consult cardiology (4) Osteomyelitis of toe of right foot Code(s): M86.9 - OSTEOMYELITIS, UNSPECIFIED Status: Acute Comment: MRI done 11 days ago here shows osteomyelitis of the toe, needs surgical consulation and amputation (5) Sepsis Code(s): A41.9 - SEPSIS, UNSPECIFIED ORGANISM Status: Acute Qualifiers: Sepsis type: sepsis due to unspecified organism Qualified Code(s): A41.9 - Sepsis, unspecified organism Comment: Continue IV antibiotics (6) Thrombocytopenia Code(s): D69.6 - THROMBOCYTOPENIA, UNSPECIFIED Status: Acute Comment: holding Lovenox (7) HTN (hypertension) Code(s): I10 - ESSENTIAL (PRIMARY) HYPERTENSION Status: Chronic Qualifiers: Hypertension type: essential hypertension Qualified Code(s): I10 - Essential (primary) hypertension Comment: Controlled, continue to monitor vital signs and titrate antihypertensives as needed (8) Hypothyroidism Code(s): E03.9 - HYPOTHYROIDISM, UNSPECIFIED Status: Chronic Qualifiers: Hypothyroidism type: acquired Qualified Code(s): E03.9 - Hypothyroidism, unspecified Comment: continue thyroid replacement therapy - Plan * .
[2018-02-05] MEDS: Atorvastatin Calcium 20 MG TAB PO SCH (20:01)
--- NOTE | 2018-02-05 20:47 | PRG ---
DATE OF SERVICE: 02/05/2018 SUBJECTIVE: The patient is sitting up by the bedside, feeling better, less malaise and no pain. No chills or fever. No shortness of breath, cough or sputum production. No abdominal pain. Voiding wi thout difficulty. OBJECTIVE: VITAL SIGNS: T-max 100, blood pressure 122/60, pulse 88, respirations 16, O2 sat 94% with a resting tremor as before. GENERAL: Awake and oriented. LUNGS: Clear. HEART: S1, S2, regular rate. ABDOMEN: Soft without distention. EXTREMITIES: Right foot without any changes. LABORATORY DATA: White cell count 4.7, hemoglobin 11.8, platelets 106,000. Creatinine 0.93, sodium 137. Repeat blood cultures, no growth thus far. CT of abdomen and pelvis, moderate bilateral pleura l effusions, anasarca, nodular contour of liver, suspicious of cirrhosis, splenomegaly. ASSESSMENT: Parkinson's disease; chronic ulcer, right first distal phalanx; fever, chills, bacteremi a secondary to , newly identified liver cirrhosis, probably from steatohepatitis, but we will ch hope hepatitis B and C serology. DISCUSSION: Bacteremia, likely from translocation from gastrointestinal tract versus from the area _ ____ right first toe. The patient will need an EGD eventually to evaluate for the presence of varice al changes from his portal hypertension. May be a candidate for suppressive therapy with low dose qu inolone in the future from his liver disease, likely recurrence of the same problem. He will need a treatment for the osteomyelitis, it looks like amputation is not their preferred option. We will set up through home health. PICC line already in place.
[2018-02-06] MEDS: Sodium Chloride 0.9% 1,000 ML IV SCH ×3 (05:55→21:17)
[2018-02-06] MEDS: rOPINIRole HCl 1 MG TAB PO SCH ×3 (08:55→21:20)
[2018-02-06] MEDS: Ezetimibe 10 MG TAB PO SCH (08:56)
[2018-02-06] MEDS: Amantadine HCl 100 mg Capsule PO SCH ×2 (08:56→21:20)
[2018-02-06] MEDS: Carbidopa/Levodopa CR 50-200 mg Tablet PO SCH ×3 (08:56→21:19)
[2018-02-06] MEDS: Ascorbic Acid 500 mg Chewable Tablet PO SCH (08:57)
[2018-02-06] MEDS: Cefepime 2 GM in Sodium Chloride 0.9% 100 ML IVPB SCH ×2 (08:57→21:18)
[2018-02-06] MEDS: Aspirin 325 MG TAB PO SCH (08:57)
[2018-02-06] MEDS: Polyethylene Glycol 3350 17 GM Packet PO SCH (08:57)
[2018-02-06] MEDS: Entacapone 200 mg Tablet PO SCH ×3 (08:57→21:19)
[2018-02-06] MEDS: Clopidogrel Bisulfate 75 MG TAB PO SCH (09:14)
[2018-02-06 10:57] LABS: Vancomycin, Trough 18.8 ug/mL
[2018-02-06] MEDS: Vancomycin HCl 1.25 GM in Sodium Chloride 0.9% 250 ML 250 ML IVPB SCH ×2 (11:13→22:45)
--- NOTE | 2018-02-06 13:41 | PDOC.PN ---
- Subjective Encounter Start Date: 02/06/18 Encounter Start Time: 11:30 Pt doing well. Was seen again by Dr Mooney, recomended Abx with [facility], liver workup for portal HTN. No F/C, no N/V/D/C, no CP or SOB. all systems reviewed and neg for all x as above - Objective Resuscitation Status: Resuscitation Status FULL:Full Resuscitation MAR Reviewed: Yes Vital Signs & Weight: Vital Signs (12 hours) Temp Pulse Resp BP BP Pulse Ox 02/06/18 08:15 98.6 F 59 L 20 86 L 02/06/18 07:50 98.6 F 59 L 20 149/93 H 85 L 02/06/18 04:00 98.7 F 59 L 14 145/66 H 94 L Weight Admit Weight 260 lb Weight 270 lb I&O: 02/05/18 02/06/18 02/07/18 06:59 06:59 06:59 Intake Total 1440 1410 Output Total 500 950 Balance 940 460 Result Diagrams: 02/05/18 05:07 02/05/18 05:07 Radiology Reviewed by me: Yes Phys Exam - Physical Examination Constitutional: NAD HEENT: PERRLA, moist MMs, sclera anicteric, oral pharynx no lesions Neck: no nodes, no JVD, supple, full ROM Respiratory: no wheezing, no rales, no rhonchi, clear to auscultation bilateral Cardiovascular: RRR, no significant murmur, no rub Gastrointestinal: soft, non-tender, no distention, positive bowel sounds Musculoskeletal: no edema, pulses present Neurological: non-focal, normal sensation, moves all 4 limbs Lymphatic: no nodes Psychiatric: normal affect, A&O x 3 Dx/Plan (1) Diabetic autonomic neuropathy associated with type 2 diabetes mellitus Code(s): E11.43 - TYPE 2 DIABETES W DIABETIC AUTONOMIC (POLY)NEUROPATHY Status : Chronic (2) Ulcer of foot with fat layer exposed Code(s): L97.502 - NON-PRS CHRONIC ULCER OTH PRT UNSP FOOT W FAT LAYER EXPOSED Status: Chronic Qualifiers: Laterality: right Qualified Code(s): L97.512 - Non-pressure chronic ulcer of other part of right foot with fat layer exposed (3) Bradycardia Code(s): R00.1 - BRADYCARDIA, UNSPECIFIED Status: Acute Comment: Pt is not on beta blockers or CCB. Continue to monitor on tele, consult cardiology (4) Osteomyelitis of toe of right foot Code(s): M86.9 - OSTEOMYELITIS, UNSPECIFIED Status: Acute Comment: MRI done 11 days ago here shows osteomyelitis of the toe, pt refused amputation, planning IV Vanc plus po cipro for 6-8 weeks (5) Sepsis Code(s): A41.9 - SEPSIS, UNSPECIFIED ORGANISM Status: Acute Qualifiers: Sepsis type: sepsis due to unspecified organism Qualified Code(s): A41.9 - Sepsis, unspecified organism Comment: Continue IV antibiotics (6) Thrombocytopenia Code(s): D69.6 - THROMBOCYTOPENIA, UNSPECIFIED Status: Acute Comment: holding Lovenox (7) HTN (hypertension) Code(s): I10 - ESSENTIAL (PRIMARY) HYPERTENSION Status: Chronic Qualifiers: Hypertension type: essential hypertension Qualified Code(s): I10 - Essential (primary) hypertension Comment: Controlled, continue to monitor vital signs and titrate antihypertensives as needed (8) Hypothyroidism Code(s): E03.9 - HYPOTHYROIDISM, UNSPECIFIED Status: Chronic Qualifiers: Hypothyroidism type: acquired Qualified Code(s): E03.9 - Hypothyroidism, unspecified Comment: continue thyroid replacement therapy - Plan cont current plan of care, plan discussed w/ family, continue antibiotics, out of bed/ambulate * .
--- NOTE | 2018-02-06 14:19 | EKG ---
Test Reason : Blood Pressure : / mmHG Vent. Rate : 081 BPM Atrial Rate : 081 BPM P-R Int : 184 ms QRS Dur : 088 ms QT Int : 394 ms P-R-T Axes : 055 041 042 degrees QTc Int : 457 ms Normal sinus rhythm Normal ECG Confirmed by ROSIBEL ROMO, KIKI ([id number]), scientific editor NATO AREVALO ([id number]) on 02/06/2018 2:19:26 PM Referred By: Confirmed By:KIKI GLEASON MD
[2018-02-06] MEDS: Atorvastatin Calcium 20 MG TAB PO SCH (21:20)
[2018-02-07 05:51] LABS: #Eosinphils 0.3 thou/uL (0.0-0.7); #Lymphocytes 0.7 thou/uL (1.20-3.40); #Monocytes 0.5 thou/uL (0.11-0.59); #Neutrophils 3.8 thou/uL (1.40-6.50); %Basophils 0.4 % (0.0-1.0); %Eosinophils 5.8 % (0.0-10.0); %Lymphocytes 13.1 % (21.0-51.0); %Monocytes 9.2 % (0.0-10.0); %Neutrophils 71.6 % (42.0-75.0); Hemoglobin 10.8 g/dL (14.0-18.0); Mean Corpuscular HGB CONC 31.8 g/dL (32.0-36.0); Mean Corpuscular Volume 91.2 fL (78.0-98.0); Mean Platelet Volume 7.5 fL (7.4-10.4); Platelet Count 177 thou/uL (130-400); RBC Distribution Width 13.9 % (11.5-14.5); Red Blood Cell (RBC) Count 3.74 mill/uL (4.70-6.10); White Blood Cell (WBC) Count 5.3 thou/uL (4.8-10.8)
[2018-02-07 06:09] LABS: Anion Gap 9 mmol/L (10-20); BUN (Urea Nitrogen) 11 mg/dL (8.4-25.7); Calc. Creatinine Clearance 134 mL/min (70-130); Calcium 8.6 mg/dL (7.8-10.44); Carbon Dioxide 29 mmol/L (23-31); Chloride 105 mmol/L (98-107); Estimated GFR-MDRD 89; Glucose 97 mg/dL (83-110); Magnesium 1.8 mg/dL (1.6-2.6); Potassium 3.1 mmol/L (3.5-5.1); Sodium 140 mmol/L (136-145)
[2018-02-07] MEDS: Cefepime 2 GM in Sodium Chloride 0.9% 100 ML IVPB SCH ×2 (08:12→20:48)
[2018-02-07] MEDS: rOPINIRole HCl 1 MG TAB PO SCH ×3 (08:13→21:03)
[2018-02-07] MEDS: Ascorbic Acid 500 mg Chewable Tablet PO SCH (08:14)
[2018-02-07] MEDS: Amantadine HCl 100 mg Capsule PO SCH ×2 (08:14→20:48)
[2018-02-07] MEDS: Carbidopa/Levodopa CR 50-200 mg Tablet PO SCH ×3 (08:14→20:48)
[2018-02-07] MEDS: Ezetimibe 10 MG TAB PO SCH ×2 (08:14→08:15)
[2018-02-07] MEDS: Aspirin 325 MG TAB PO SCH (08:14)
[2018-02-07] MEDS: Clopidogrel Bisulfate 75 MG TAB PO SCH (08:14)
[2018-02-07] MEDS: Entacapone 200 mg Tablet PO SCH ×3 (08:14→20:48)
[2018-02-07] MEDS: Polyethylene Glycol 3350 17 GM Packet PO SCH (08:15)
[2018-02-07] MEDS: Vancomycin HCl 1.25 GM in Sodium Chloride 0.9% 250 ML 250 ML IVPB SCH ×2 (11:31→23:33)
[2018-02-07] MEDS: Sodium Chloride 0.9% 1,000 ML IV SCH ×2 (11:32→23:33)
--- NOTE | 2018-02-07 14:47 | PDOC.PN ---
- Subjective Encounter Start Date: 02/07/18 Encounter Start Time: 14:46 FEELS WELL. NO COMPLAINTS. - Objective Resuscitation Status: Resuscitation Status FULL:Full Resuscitation Vital Signs & Weight: Vital Signs (12 hours) Temp Pulse Resp BP BP Pulse Ox 02/07/18 11:30 97.9 F 64 18 160/68 H 97 02/07/18 08:05 97.9 F 66 18 138/68 92 L 02/07/18 04:00 98.4 F 62 16 157/74 H 92 L Weight Admit Weight 260 lb Weight 279 lb I&O: 02/06/18 02/07/18 02/08/18 06:59 06:59 06:59 Intake Total 1410 1950 Output Total 950 825 Balance 460 1125 Result Diagrams: 02/07/18 05:24 02/07/18 05:24 Phys Exam - Physical Examination Respiratory: no wheezing, no rales, no rhonchi, clear to auscultation bilateral Cardiovascular: RRR, no significant murmur, no rub Gastrointestinal: soft, non-tender, no distention, positive bowel sounds 1+ BLE EDEMA PD TREMOR IN HANDS Psychiatric: normal affect, A&O x 3 Dx/Plan (1) Bradycardia Code(s): R00.1 - BRADYCARDIA, UNSPECIFIED Status: Acute Plan: APPEARS TO BE STABLE IN THE 60'S NOW. Comment: Pt is not on beta blockers or CCB. Continue to monitor on tele, consult cardiology (2) Osteomyelitis of toe of right foot Code(s): M86.9 - OSTEOMYELITIS, UNSPECIFIED Status: Acute Comment: MEDICAL MANAGEMENT. HIGH THRESHOLD FOR AMPUTATION GIVEN HIS PARKINSON'S. WORKING ON OUTPATIENT IV ABX. (3) Sepsis Code(s): A41.9 - SEPSIS, UNSPECIFIED ORGANISM Status: Acute Qualifiers: Sepsis type: sepsis due to unspecified organism Qualified Code(s): A41.9 - Sepsis, unspecified organism Comment: Continue IV antibiotics (4) Thrombocytopenia Code(s): D69.6 - THROMBOCYTOPENIA, UNSPECIFIED Status: Acute Plan: IMPROVED WITH HOLDING THE LOVENOX. Comment: holding Lovenox (5) Diabetic autonomic neuropathy associated with type 2 diabetes mellitus Code(s): E11.43 - TYPE 2 DIABETES W DIABETIC AUTONOMIC (POLY)NEUROPATHY Status : Chronic (6) HTN (hypertension) Code(s): I10 - ESSENTIAL (PRIMARY) HYPERTENSION Status: Chronic Qualifiers: Hypertension type: essential hypertension Qualified Code(s): I10 - Essential (primary) hypertension Comment: Controlled, continue to monitor vital signs and titrate antihypertensives as needed - Plan * NURSE TO TALK WITH CM. HE IS READY FOR OUTPATIENT ABX VIA THE PICC THAT IS IN PLACE.
[2018-02-07] MEDS ORDERED: Potassium Chloride 20 MEQ TAB PO SCH (17:15)
[2018-02-07] MEDS: Atorvastatin Calcium 20 MG TAB PO SCH (20:47)
[2018-02-08 05:53] LABS: #Eosinphils 0.3 thou/uL (0.0-0.7); #Lymphocytes 0.5 thou/uL (1.20-3.40); #Monocytes 0.4 thou/uL (0.11-0.59); #Neutrophils 4.2 thou/uL (1.40-6.50); %Basophils 0.1 % (0.0-1.0); %Eosinophils 5.6 % (0.0-10.0); %Lymphocytes 9.3 % (21.0-51.0); Hemoglobin 10.7 g/dL (14.0-18.0); Mean Corpuscular HGB CONC 31.5 g/dL (32.0-36.0); Mean Corpuscular Hemoglobin 28.8 pg (27.0-31.0); Mean Corpuscular Volume 91.5 fL (78.0-98.0); Mean Platelet Volume 7.2 fL (7.4-10.4); Platelet Count 200 thou/uL (130-400); RBC Distribution Width 14.1 % (11.5-14.5); Red Blood Cell (RBC) Count 3.71 mill/uL (4.70-6.10); White Blood Cell (WBC) Count 5.4 thou/uL (4.8-10.8)
[2018-02-08 05:58] LABS: Anion Gap 9 mmol/L (10-20); BUN (Urea Nitrogen) 10 mg/dL (8.4-25.7); Calc. Creatinine Clearance 137 mL/min (70-130); Calcium 8.6 mg/dL (7.8-10.44); Carbon Dioxide 29 mmol/L (23-31); Chloride 106 mmol/L (98-107); Estimated GFR-MDRD Greater than 90; Glucose 120 mg/dL (83-110); Potassium 3.7 mmol/L (3.5-5.1); Sodium 140 mmol/L (136-145)
[2018-02-08] MEDS: Cefepime 2 GM in Sodium Chloride 0.9% 100 ML IVPB SCH (10:05)
[2018-02-08] MEDS: rOPINIRole HCl 1 MG TAB PO SCH ×2 (10:06→15:17)
[2018-02-08] MEDS: Polyethylene Glycol 3350 17 GM Packet PO SCH (10:06)
[2018-02-08] MEDS: Ascorbic Acid 500 mg Chewable Tablet PO SCH (10:07)
[2018-02-08] MEDS: Clopidogrel Bisulfate 75 MG TAB PO SCH (10:07)
[2018-02-08] MEDS: Entacapone 200 mg Tablet PO SCH ×2 (10:07→15:17)
[2018-02-08] MEDS: Carbidopa/Levodopa CR 50-200 mg Tablet PO SCH ×2 (10:07→15:17)
[2018-02-08] MEDS: Ezetimibe 10 MG TAB PO SCH (10:07)
[2018-02-08] MEDS: Aspirin 325 MG TAB PO SCH (10:08)
[2018-02-08] MEDS: Amantadine HCl 100 mg Capsule PO SCH (10:08)
[2018-02-08] MEDS: Vancomycin HCl 1.25 GM in Sodium Chloride 0.9% 250 ML 250 ML IVPB SCH (11:35)
[2018-02-08] MEDS: Sodium Chloride 0.9% 1,000 ML IV SCH ×2 (11:36→17:47)
[2018-02-08 12:15] VITALS: BMI 36.8
[2018-02-08 15:15] VITALS: BP 172/71; TEMP 97.8
--- NOTE | 2018-02-08 16:32 | DIS ---
DATE OF ADMISSION: 01/31/2018 DATE OF DISCHARGE: 02/08/2018 ADMITTING DIAGNOSIS: Severe sepsis. DISCHARGE DIAGNOSIS: Severe sepsis. SECONDARY DIAGNOSES: 1. Acute right great toe osteomyelitis. 2. History of Parkinson's disease. 3. History of uncontrolled hypertension. 4. Hypothyroidism. 5. History of acute encephalopathy secondary to infection. 6. Acute kidney injury. 7. Hyperglycemia. ELECTRONICS SCALE TESTER INVOLVED IN THE CARE: Dr. Mooney. HISTORY OF PRESENT ILLNESS AND HOSPITAL COURSE: In brief, this is a 77-year-old white male with a kn own history of Parkinson's disease, hyperlipidemia, hypertension, chronic right toe ulcer. Patient p resented to the hospital and was severely septic and was started on broad spectrum IV antibiotics. Nehemiah sorensen is noted to have right toe ulcer and had MRI of the toe which showed an evidence of osteomyelitis. The [facility]. During this admission, ricardo orona had a syncopal episode with low blood pressures falling down to 70s. Also, patient was very confu sed. He was given IV fluids resuscitation and sepsis was treated. He was started on vancomycin and cefepime. He showed good improvement and had a PT and OT evaluation and family is requested to going home with [facility]. Because of osteomyelitis, patient was advised to be continued on IV antibiot ics for 6 weeks with vancomycin and Rocephin 1 gram daily. The patient also had bacteremia growing P roteus. The patient was sensitive to most of the antibiotics. He was treated for more than 5 days w ith antibiotics and his repeat blood cultures were negative. The patient was discharged home with [facility]. PHYSICAL EXAMINATION: VITAL SIGNS: Blood pressure 167/77, heart rate is 58, respiratory rate is 18, saturation 95% on room air. GENERAL: The patient is moderately built and moderately nourished, does not appears to be in acute d istress. CARDIOVASCULAR: S1, S2 normal. No murmurs, rubs or gallops. LUNGS: Bilateral air entry was equal. No wheezing, no crackles. ABDOMEN: Soft and nontender. No guarding or rebound tenderness. Bowel sounds normal. MUSCULOSKELETAL: No calf tenderness. No pedal edema. No joint tenderness, no joint swelling. SKIN: No cyanosis, no erythema, no rash, no pallor. CENTRAL NERVOUS SYSTEM: Cranial nerve examination II through XII intact. No focal deficits were not ed. DISCHARGE MEDICATIONS: 1. Amantadine. 2. Ascorbic acid. 3. Aspirin 81 mg p.o. daily. 4. Atorvastatin 40 mg p.o. daily. 5. Carbidopa/levodopa 1 tablet p.o. t.i.d. 6. Cholecalciferol. 7. Plavix 75 grams p.o. daily. 8. Entacapone 200 mg p.o. t.i.d. 9. Ezetimibe 10 mg p.o. daily. 10. Losartan/hydrochlorothiazide one tablet p.o. daily. 11. Pantoprazole 40 mg p.o. at bedtime. 12. Sertraline 100 mg p.o. daily. 13. Tamsulosin 0.4 mg p.o. daily. 14. Vancomycin 1.25 grams IV b.i.d. 15. Rocephin 1 gram daily. DISCHARGE INSTRUCTIONS: 1. The patient will follow up with Dr. Mooney' clinic as his recommendations and we will continue on IV antibiotics for total of 6 weeks. 2. Follow up with the primary care physician in 1 week. 3. Follow up with [facility] as usual. 4. Continue with the Home Health for PT and OT and for IV infusion. I spent 45 minutes with this patient on day of discharge.
== END 2018-02-08 18:45 | disposition home health service (06) | DRG 871 ==
LOC: ERS 21:02 → 2NO 22:45
PROVIDERS: ADMIT Hospitalist; ATTEND Hospitalist
PROC: 02HV33Z Insertion of Infusion Device into Superior Vena Cava, Percutaneous Approach (ICD-10-PCS; principal; 2018-02-04)
DX: A41.59 Other Gram-negative sepsis (principal); G93.40 Encephalopathy, unspecified; N17.9 Acute kidney failure, unspecified; E87.2 Acidosis; M86.171 Other acute osteomyelitis, right ankle and foot; R65.20 Severe sepsis without septic shock; G20 Parkinson's disease; I10 Essential (primary) hypertension; E03.9 Hypothyroidism, unspecified; K74.60 Unspecified cirrhosis of liver; K75.81 Nonalcoholic steatohepatitis (NASH); L97.519 Non-pressure chronic ulcer of other part of right foot with unspecified severity; E11.43 Type 2 diabetes mellitus with diabetic autonomic (poly)neuropathy; E11.69 Type 2 diabetes mellitus with other specified complication; L97.512 Non-pressure chronic ulcer of other part of right foot with fat layer exposed; E11.622 Type 2 diabetes mellitus with other skin ulcer; E11.65 Type 2 diabetes mellitus with hyperglycemia; Z87.11 Personal history of peptic ulcer disease; Z91.040 Latex allergy status; Z79.82 Long term (current) use of aspirin; Z79.899 Other long term (current) drug therapy
CPT/HCPCS: 36415; 36569; 71045; 74177; 80048; 80053; 80202; 81001; 83605; 83735; 85025; 85652; 86140; 87040; 87077; 87086; 87149; 87186; 90471; 90670; 93005; 94760; 96361; 96365; A4216; C1751; G0009; G8978-GP-CJ; G8979-GP-CJ; G8980-GP-CJ; G8987-GO-CI; G8988-GO-CI; G8989-GO-CI; J0692; J1650; J2543; J3370; J7050

== ENCOUNTER → 2018-02-12 | Day surgery (SDC) | payer MEDICARE ==
[~2018-02-12] MED LIST changes: +Heparin 1,000 UNITS/ML VIAL ONE; -Sodium Chloride 0.9% 15 ML NEB ONE
--- NOTE | 2018-02-12 14:51 | SPC ---
LEFT UPPER EXTREMITY PICC LINE ULTRASOUND AND FLUOROSCOPIC GUIDANCE: PROCEDURE: After informed consent had been obtained, the patient was placed on the interventional suite table in a supine position. The left arm was prepped and draped in a standard sterile fashion. Topical anes thesia was achieved utilizing 1% Lidocaine and sodium bicarbonate. Under real-time sonography, the b asilic vein of the left upper extremity was accessed with a small caliber needle with venous flash pr esent at the needle hub. A guidewire was then advanced in to the needle, and under real-time fluoros copy, the guidewire was advanced to the level of the inferior vena cava to confirm appropriate venous placement. A small skin incision was made and the needle was removed. Over the guidewire, a double lumen PICC line was cut to 47 cm. The PICC line was advanced under real-time fluoroscopy over the g uidewire to the level of the cavoatrial junction. The guidewire and peelaway sheath were then remove d. PICC line flushed and aspirated appropriately and was secured to the left upper extremity. There were no procedural complications. Fluoroscopy data = 0 minutes, 27 mGy*cm^2. IMPRESSION: Technically successful ultrasound and fluoroscopic-guided left PICC line placement, as above. POS: KIKI
== END ==
LOC: SPEC 12:29
PROVIDERS: ATTEND Internal Medicine Infectious Disease
PROC: 06H033Z Insertion of Infusion Device into Inferior Vena Cava, Percutaneous Approach (ICD-10-PCS; principal; 2018-02-12)
PROC: B549ZZA Ultrasonography of Inferior Vena Cava, Guidance (ICD-10-PCS; 2018-02-12)
DX: Z45.2 Encounter for adjustment and management of vascular access device (principal); Z79.2 Long term (current) use of antibiotics; Z91.040 Latex allergy status
CPT/HCPCS: 36569; J1644

== ENCOUNTER 2018-02-18 15:00 | Outpatient (CLI) | payer MEDICARE ==
--- NOTE | 2018-02-18 16:30 | PRG ---
DATE OF SERVICE: 02/18/2018 HISTORY: Mr. Obie Hill is a very pleasant 77-year-old gentleman accompanied by his , who presents to the Wound Center for evaluation of an ulceration of the right great toe. MRI of the rig ht forefoot with and without contrast on 12/21/2017 revealed osteomyelitis of the great toe distal ph alanx. The patient was seen in consultation by General Surgery, who did not recommend amputation. T he patient subsequently underwent PICC line placement and is now receiving IV antibiotics as per Infe ctious Diseases. The patient will be receiving assistance with dressing changes by Home Health. PHYSICAL EXAMINATION: VITAL SIGNS: Temperature 97.7, pulse 70, respirations 20, and blood pressure 130/60. EXTREMITIES: An ulceration of the right great toe is present, which measures approximately 0.3 x 0.2 cm. Granulation tissue is present within the wound margins. Necrotic and nonviable tissue present within the wound margins was debrided with an excisional full-thickness debridement with the use of a curette. Desiccated tissue and undermining at the periphery of the wound were eliminated with the u se of scissors. No erythema of the skin surrounding the wound is present. No maceration of the skin of the periwound is noted. Less erythema and edema of the distal right great toe are noted on exam today than at the time of the patient's visit on 01/21/2018. ASSESSMENT AND PLAN: 1. Ulceration of plantar surface of right great toe. As stated above, the patient is receiving IV a ntibiotics for osteomyelitis as per Infectious Diseases. Orders will be transmitted to Home Health f or dressing changes of Medihoney gauze and Coban 3 times per week after cleansing and irrigation for the right great toe plantar ulceration. The wound is healing without complications or any signs of i nfection and has almost healed completely. Mr. Hill will be discharged from clinic today with [facility] on a p.r.n. basis. The patient and his understand and are in agreement with the preceding treatment plan. 2. Lymphedema tarda. The patient is utilizing his pneumatic pump as previously prescribed. 3. Parkinson's. 4. Hypertension. 5. Hypothyroidism. 6. Peptic ulcer disease.
== END 2018-02-18 15:01 | disposition home or self-care (01) ==
LOC: WCC 15:00
PROVIDERS: ATTEND Family Medicine
DX: L97.519 Non-pressure chronic ulcer of other part of right foot with unspecified severity (principal); I89.0 Lymphedema, not elsewhere classified; G20 Parkinson's disease; I10 Essential (primary) hypertension; E03.9 Hypothyroidism, unspecified; K27.9 Peptic ulcer, site unspecified, unspecified as acute or chronic, without hemorrhage or perforation
CPT/HCPCS: 11042

== ENCOUNTER 2018-03-10 11:27 | Outpatient (CLI) | payer MEDICARE ==
--- NOTE | 2018-03-10 13:18 | PRG ---
DATE OF SERVICE: 03/10/2018 HISTORY: Mr. Obie Hill is a very pleasant 77-year-old gentleman accompanied by his who presents to the Wound Center for evaluation of an ulceration of the right great toe. MRI of the righ t forefoot with and without contrast on 12/21/2017 revealed osteomyelitis of the great toe distal pha lanx. The patient was seen in consultation by General Surgery who did not recommend amputation. The patient subsequently underwent PICC line placement and is now receiving IV antibiotics as per Infect ious Diseases. The patient has been receiving dressing changes of Medihoney with the assistance of h is . PHYSICAL EXAMINATION: VITAL SIGNS: Temperature 97.4, pulse 65, respirations 23, blood pressure 146/60. EXTREMITIES: An ulceration of the right great toe is present, which measures approximately 1.0 x 1.5 cm. Callus associated with the wound was excised with the use of scissors with an excisional partia l-thickness debridement. No serous or purulent drainage is associated with the wound. No erythema o f the skin surrounding the wound is present. No maceration of the skin of the periwound is noted. ASSESSMENT AND PLAN: 1. Ulceration of plantar surface of right great toe. As stated above, the patient is receiving IV a ntibiotics for osteomyelitis as per Infectious Diseases. Dressing changes of Medihoney, gauze and Co ban 3 times per week after cleansing and irrigation for the right great toe plantar ulceration will b e continued with the assistance of the patient's . The wound has almost healed completely and Mr Dimple Hill will be discharged from clinic today with followup on a p.r.n. basis. 2. Lymphedema tarda. The patient is utilizing his pneumatic pump as previously prescribed. 3. Parkinson's. 4. Hypertension. 5. Hypothyroidism. 6. Peptic ulcer disease.
== END 2018-03-10 11:28 | disposition home or self-care (01) ==
LOC: WCC 11:27
PROVIDERS: ATTEND Family Medicine
DX: L97.519 Non-pressure chronic ulcer of other part of right foot with unspecified severity (principal); I89.0 Lymphedema, not elsewhere classified; G20 Parkinson's disease; I10 Essential (primary) hypertension; E03.9 Hypothyroidism, unspecified; K27.9 Peptic ulcer, site unspecified, unspecified as acute or chronic, without hemorrhage or perforation
CPT/HCPCS: 97597

== ENCOUNTER 2019-04-10 11:21 | Emergency (ER) | payer MEDICARE ==
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
[2019-04-10] MEDS ORDERED: Bacitracin 1 PK ONE (12:41)
== END 2019-04-10 12:51 | disposition home or self-care (01) ==
LOC: SCSER 11:21
DX: S01.111A Laceration without foreign body of right eyelid and periocular area, initial encounter (principal); E78.5 Hyperlipidemia, unspecified; I10 Essential (primary) hypertension; G20 Parkinson's disease; F32.9 Major depressive disorder, single episode, unspecified; W18.30XA Fall on same level, unspecified, initial encounter
CPT/HCPCS: 12013; 70450

== ENCOUNTER 2019-04-18 09:13 | Outpatient (CLI) | payer MEDICARE ==
--- NOTE | 2019-04-18 14:05 | PRG ---
DATE OF SERVICE: 04/18/2019 HISTORY: Mr. Obie Hill is a very pleasant 78-year-old gentleman accompanied by his , who presents to the Wound Center for evaluation of an ulceration of the plantar surface of the right great toe. The patient also has a venous ulceration of the right anterior lower leg as well as a venous ulceration of the left anterior lower leg. The patient was last seen in the Wound Center on 03/10/2018 for the ulceration of the plantar surface of the right great toe. The patient's states that since his last visit, the ulceration of the right great toe has never healed. The patient is utilizing shoes with inserts obtained at [email or web address]. The patient states that although he has a pneumatic pump, he does not use his lymphedema pump consistently. He does report difficulty in wearing compression stockings. PHYSICAL EXAMINATION: VITAL SIGNS: Temperature 97.9, pulse 62, respirations 16, and blood pressure 133/59. EXTREMITIES: An ulceration of the right great toe over the plantar surface of the toe is present, which measures approximately 0.4 x 0.6 cm. Granulation tissue was present within the wound margins. Necrotic and nonviable tissue present within the wound margins was debrided with an excisional full-thickness debridement with the use of a curette. Callus undermining and desiccated tissue at the periphery of the wound were eliminated with the use of scissors. No serous or purulent drainage was associated with the wound. No erythema of the skin surrounding the wound was present. No maceration of the skin of the periwound was noted. A dorsalis pedis pulse was palpable on the right. No significant edema of the right foot was appreciated on exam today. The ulcerations of the right and left lower legs were both associated with eschar over the wound beds. ASSESSMENT AND PLAN: 1. Ulceration of plantar surface of right great toe. The patient also has venous ulcerations of the right and left anterior lower legs. For the ulceration of the plantar surface of the right great toe, dressing changes of Santyl will be initiated. These dressing changes are to be performed on a daily basis after cleansing and irrigation with the assistance of the patient's . Dressing changes of Promogran will be performed until Santyl becomes available. The ulcerations of the right and left anterior lower legs are to be covered with bordered gauze. I have encouraged the patient to begin utilizing his pneumatic pump on a consistent basis. Arrangements will also be made for the home delivery of wraparound compression. The patient and his understand and are in agreement with the preceding treatment plan. I will see Mr. Hill again in 2 weeks. 2. Lymphedema tarda. As stated above, the patient has been encouraged to utilize his pneumatic pump on a consistent basis. 3. Parkinson's. 4. Hypertension. 5. Hypothyroidism. 6. Peptic ulcer disease. Job ID: [id number]
[2019-04-18] MEDS ORDERED: Sodium Chloride 0.9% 15 ML NEB ONE (15:00)
== END 2019-04-18 09:14 | disposition home or self-care (01) ==
LOC: WCC 09:13
PROVIDERS: ATTEND Family Medicine
DX: L97.519 Non-pressure chronic ulcer of other part of right foot with unspecified severity (principal); G20 Parkinson's disease; I10 Essential (primary) hypertension; I89.0 Lymphedema, not elsewhere classified; E03.9 Hypothyroidism, unspecified; K27.9 Peptic ulcer, site unspecified, unspecified as acute or chronic, without hemorrhage or perforation
CPT/HCPCS: 11042; 97139; G0463; 99213; A4218

== ENCOUNTER 2019-05-02 09:00 | Outpatient (CLI) | payer MEDICARE ==
--- NOTE | 2019-05-02 11:12 | PRG ---
DATE OF SERVICE: 05/02/2019 HISTORY: Mr. Obie Hill is a very pleasant 78-year-old gentleman accompanied by his who presents to the Wound Center for evaluation of an ulceration of the plantar surface of the right great toe. The patient also has a venous ulceration of the right anterior lower leg as well as a venous ulceration of the left anterior lower leg. The patient was previously seen in the Wound Center on 03/10/2018 for the ulceration of the plantar surface of the right great toe. The patient's stated that the ulceration of the right great toe, however, never completely healed. The patient is presently utilizing shoes with inserts [email or web address]. Since the patient's last visit, Mr. Hill has undergone venous ablation by Dr. Hathaway on the right. PHYSICAL EXAMINATION: VITAL SIGNS: Temperature 97.4, pulse 70, respirations 21, blood pressure 108/59. EXTREMITIES: An ulceration of the right great toe over the plantar surface of the toe was present, which measures approximately 0.5 x 0.3 cm. The dimensions of the wound at the time of the patient's last visit were approximately 0.4 x 0.6 cm. Granulation tissue was present within the wound margins. Necrotic and nonviable tissue present within the wound margins was debrided with an excisional full-thickness debridement with the use of scissors. Callus undermining and desiccated tissue at the periphery of the wound were eliminated with the use of scissors. No purulent drainage is associated with the wound. No erythema of the skin surrounding the wound is present. No maceration of the skin of the periwound is noted. No significant edema of the right foot is present on exam today. The ulceration of the right anterior lower leg is healing without complications or any signs of infection. The ulceration of the left anterior lower leg has healed completely. ASSESSMENT AND PLAN: 1. Ulceration of plantar surface of right great toe. The patient also has a venous ulceration of the right anterior lower legs. For both ulcerations, dressing changes of Santyl are to be performed on a daily basis after cleansing and irrigation with the assistance of the patient's . The patient is to continue compression as per Dr. Hathaway. As stated above, the patient since his last visit to the Wound Center, has undergone venous ablation by Dr. Hathaway on the right. I will see Mr. Wimbish again in 2 weeks. 2. Lymphedema tarda. 3. Parkinson's. 4. Hypertension. 5. Hypothyroidism. 6. Peptic ulcer disease. Job ID: [id number]
== END 2019-05-02 09:01 | disposition home or self-care (01) ==
LOC: WCC 09:00
PROVIDERS: ATTEND Family Medicine
DX: L97.519 Non-pressure chronic ulcer of other part of right foot with unspecified severity (principal); L97.919 Non-pressure chronic ulcer of unspecified part of right lower leg with unspecified severity; I87.8 Other specified disorders of veins; I89.0 Lymphedema, not elsewhere classified; G20 Parkinson's disease; I10 Essential (primary) hypertension; E03.9 Hypothyroidism, unspecified; K30 Functional dyspepsia
CPT/HCPCS: 11042

== ENCOUNTER 2019-05-16 08:59 | Outpatient (CLI) | payer MEDICARE ==
[2019-05-16] MEDS ORDERED: Sodium Chloride 0.9% 15 ML NEB ONE (09:00)
--- NOTE | 2019-05-16 10:39 | PRG ---
DATE OF SERVICE: 05/16/2019 HISTORY: Mr. Obie Hill is a very pleasant 78-year-old gentleman, accompanied by his , who presents to the Wound Center for evaluation of an ulceration of the plantar surface of the right great toe. The patient also has a venous ulceration of the right anterior lower leg. The patient was previously seen in the Wound Center on 03/10/2018 for the ulceration of the plantar surface of the right great toe. The patient's stated that the ulceration of the right great toe, however, never completely healed. The patient is currently utilizing shoes with inserts obtained at [facility] [employer]. The patient recently underwent venous ablation by Dr. Hathaway on the right. The patient is receiving dressing changes of Santyl for both wounds of the right lower extremity. PHYSICAL EXAMINATION: VITAL SIGNS: Temperature 97.6, pulse 61, respirations 18, and blood pressure 149/66. EXTREMITIES: An ulceration of the right great toe over the plantar surface of the toe is present, which measures approximately 0.6 x 0.5 cm. The dimensions of the wound at the time of the patient's last visit were approximately 0.5 x 0.3 cm. Granulation tissue is present within the wound margins. Necrotic and nonviable tissue present within the wound margins were debrided with an excisional full-thickness debridement with the use of scissors. Callus and undermining at the periphery of the wound were eliminated with the use of scissors. No purulent drainage is associated with the wound. No erythema of the skin surrounding the wound is present. Maceration of the skin of the periwound is noted. No significant edema of the right foot is present on exam today. The periwound of the right great toe ulceration is stained green. A sample of the serous drainage associated with the right great toe wound was sent for aerobic and anaerobic cultures. The ulceration of the right anterior lower leg continues to heal without complications or any signs of infection. ASSESSMENT AND PLAN: 1. Ulceration of plantar surface of right great toe. The patient also has a venous ulceration of the right anterior lower leg. For the plantar wound, dressing changes of Santyl will be continued on a daily basis after cleansing and irrigation with the assistance of the patient's . The patient has also been given a prescription for ciprofloxacin 500 mg #20 one p.o. b.i.d. x10 days. Antibiotic therapy will be modified based upon the results of the cultures obtained today. The patient is to continue compression as per Dr. Hathaway. As stated above, the patient recently underwent venous ablation by Dr. Hathaway on the right. I will see Mr. Hill again in 2 weeks. 2. Lymphedema tarda. 3. Parkinson's. 4. Hypertension. 5. Hypothyroidism. 6. Peptic ulcer disease. Job ID: [id number]
== END 2019-05-16 09:00 | disposition home or self-care (01) ==
LOC: WCC 08:59
PROVIDERS: ATTEND Family Medicine
DX: L97.519 Non-pressure chronic ulcer of other part of right foot with unspecified severity (principal); I89.0 Lymphedema, not elsewhere classified; G20 Parkinson's disease; I10 Essential (primary) hypertension; E03.9 Hypothyroidism, unspecified; K27.9 Peptic ulcer, site unspecified, unspecified as acute or chronic, without hemorrhage or perforation
CPT/HCPCS: 87070; 87077; 87186; 87205; A4218

== ENCOUNTER 2019-05-30 08:14 | Outpatient (CLI) | payer MEDICARE ==
[2019-05-30] MEDS ORDERED: Sodium Chloride 0.9% 15 ML NEB ONE (09:00)
--- NOTE | 2019-05-30 10:03 | PRG ---
DATE OF SERVICE: 05/30/2019 HISTORY: Mr. Obie Hill is a very pleasant 78-year-old gentleman, accompanied by his who presents to the Wound Center for evaluation of an ulceration of the plantar surface of the right great toe. The patient also has a venous ulceration of the right anterior lower leg. The patient was previously seen in the Wound Center on 03/10/2018 for the ulceration of the plantar surface of the right great toe. The patient's stated that the ulceration of the right great toe, however, never completely healed. The patient's previously stated that Mr. Hill is presently utilizing shoes with inserts obtained at [facility] [employer]. The patient previously underwent venous ablation by Dr. Hathaway on the right. The patient has been receiving dressing changes of Santyl for both wounds of the right lower extremity. PHYSICAL EXAMINATION: VITAL SIGNS: Temperature 97.8, pulse 67, respirations 20, and blood pressure 134/62. EXTREMITIES: An ulceration of the right great toe over the plantar surface of the toe is present, which measures approximately 0.2 x 0.4 cm. The dimensions of the wound at the time of the patient's last visit were approximately 0.6 x 0.5 cm. Granulation tissue is present within the wound margins. Necrotic and nonviable tissue present within the wound margins were debrided with an excisional full-thickness debridement with the use of scissors. Callus undermining and desiccated tissue at the periphery of the wound were also eliminated with the use of scissors. No purulent drainage is associated with the wound. No erythema of the skin surrounding the wound is present. No maceration of the skin of the periwound is noted. More granulation tissue is present within the wound margins than at the time of the patient's last visit. The ulceration of the right anterior lower leg has healed completely. ASSESSMENT AND PLAN: 1. Ulceration of plantar surface of right great toe: As stated above, the venous ulceration of the right anterior lower leg has healed completely. For the plantar wound, dressing changes of Santyl will be continued on a daily basis after cleansing and irrigation with the assistance of the patient's . Post-debridement measurements were approximately 0.4 x 0.3 cm. Cultures obtained at the time of the patient's last visit revealed a growth of Proteus mirabilis sensitive to ciprofloxacin. The patient states he completed the course of ciprofloxacin as previously prescribed. The patient is to continue compression as per Dr. Hathaway. I will see Mr. Hill again in 2 weeks. 2. Lymphedema tarda. 3. Parkinson's. 4. Hypertension. 5. Hypothyroidism. 6. Peptic ulcer disease. Job ID: [id number]
== END 2019-05-30 08:15 | disposition home or self-care (01) ==
LOC: WCC 08:14
PROVIDERS: ATTEND Family Medicine
DX: L97.519 Non-pressure chronic ulcer of other part of right foot with unspecified severity (principal); I10 Essential (primary) hypertension; E03.9 Hypothyroidism, unspecified; I89.0 Lymphedema, not elsewhere classified; G20 Parkinson's disease; K27.9 Peptic ulcer, site unspecified, unspecified as acute or chronic, without hemorrhage or perforation
CPT/HCPCS: A4218

== ENCOUNTER 2019-06-13 08:36 | Outpatient (CLI) | payer MEDICARE ==
[2019-06-13] MEDS ORDERED: Sodium Chloride 0.9% 15 ML NEB ONE (09:00)
--- NOTE | 2019-06-13 09:54 | PRG ---
DATE OF SERVICE: 06/13/2019 SUBJECTIVE: Mr. Obie Hill is a very pleasant 78-year-old gentleman, accompanied by his , who presents to the Wound Center for evaluation of an ulceration of the plantar surface of the right great toe. The patient was previously seen in the Wound Center on 03/10/2018 for the ulceration of the plantar surface of the right great toe. The patient's stated that the ulceration of the right great toe, however, never completely healed. The patient's previously stated that Mr. Hill is presently utilizing shoes with inserts obtained at [facility] [employer]. The patient previously underwent venous ablation by Dr. Hathaway on the right. The patient has been receiving dressing changes of Santyl for the ulceration of the plantar surface of the right great toe. OBJECTIVE: VITAL SIGNS: Temperature 97.6, pulse 67, respirations 19, and blood pressure 123/60. EXTREMITIES: An ulceration of the right great toe over the plantar surface of the toe was present, which measures approximately 0.2 x 0.4 cm. Granulation tissue is present within the wound margins. Necrotic and nonviable tissue present within the wound margins was debrided with an excisional full-thickness debridement with the use of a curette. Callus undermining and desiccated tissue at the periphery of the wound were eliminated with the use of scissors. No purulent drainage is associated with the wound. No erythema of the skin surrounding the wound is present. No maceration of the skin of the periwound is noted. The depth of the wound is less than that of the depth of the wound at the time of the patient's last visit. ASSESSMENT AND PLAN: 1. Ulceration of plantar surface of the right great toe. For the plantar wound, dressing changes of Santyl will be continued on a daily basis after cleansing and irrigation with the assistance of the patient's . The patient is to continue compression as per Dr. Hathaway. The patient has been encouraged to use his pneumatic pump for in-home lymphedema therapy on a consistent basis. I will see Mr. Hill again in 2 weeks. 2. Lymphedema tarda. 3. Parkinson's. 4. Hypertension. 5. Hypothyroidism. 6. Peptic ulcer disease. Job ID: [id number]
== END 2019-06-13 08:37 | disposition home or self-care (01) ==
LOC: WCC 08:36
PROVIDERS: ATTEND Family Medicine
DX: L97.519 Non-pressure chronic ulcer of other part of right foot with unspecified severity (principal); I89.0 Lymphedema, not elsewhere classified; I10 Essential (primary) hypertension; E03.9 Hypothyroidism, unspecified; K27.9 Peptic ulcer, site unspecified, unspecified as acute or chronic, without hemorrhage or perforation; G20 Parkinson's disease
CPT/HCPCS: A4218

== ENCOUNTER 2019-06-27 11:26 | Outpatient (CLI) | payer MEDICARE ==
--- NOTE | 2019-06-27 10:44 | PRG ---
DATE OF SERVICE: 06/27/2019 HISTORY: Mr. Obie Hill is a very pleasant 78-year-old gentleman, accompanied by his , who presents to the wound center for evaluation of an ulceration of the plantar surface of the right great toe. The patient was previously seen in the wound center on 03/10/2018 for the ulceration of the plantar surface of the right great toe. The patient's stated that the ulceration of the right great toe; however, never completely healed. The patient's previously stated that Mr. Hill is presently utilizing shoes with inserts obtained at [facility] [employer]. The patient previously underwent venous ablation by Dr. Hathaway on the right. The patient has been receiving dressing changes of Santyl for the ulceration of the plantar surface of the right great toe. The patient's states that the appearance of the ulceration has improved with the initiation of dressing changes of Santyl. PHYSICAL EXAMINATION: VITAL SIGNS: Temperature 97.4, pulse 68, respirations 20, and blood pressure 127/60. EXTREMITIES: An ulceration of the plantar surface of the right great toe is present, which measures approximately 0.1 x 0.1 cm. Granulation tissue is present within the wound margins. Necrotic and nonviable tissue present within the wound margins was debrided with an excisional full-thickness debridement with the use of a curette. Callus undermining and desiccated tissue at the periphery of the wound were eliminated with the use of scissors. No purulent drainage is associated with the wound. No erythema of the skin surrounding the wound is present. No maceration of the skin of the periwound is noted. Postdebridement measurements were approximately 0.3 x 0.4 cm. ASSESSMENT AND PLAN: 1. Ulceration of plantar surface of right great toe. For the plantar wound, dressing changes of Santyl will be continued on a daily basis after cleansing and irrigation with the assistance of the patient's . We will see Mr. Hill again in 2 weeks. I have explained to the patient and his should the dimensions of the ulceration failed to decrease in a timely manner, consideration will need to be given to imaging to look for findings suggestive of osteomyelitis. 2. Lymphedema tarda. The patient is to continue compression as per Dr. Hathaway. Again, the patient has been encouraged to use his pneumatic pump for in-home lymphedema therapy on a consistent basis. 3. Parkinson's. 4. Hypertension. 5. Hypothyroidism. 6. Peptic ulcer disease. Job ID: [id number]
[2019-06-27] MEDS ORDERED: Sodium Chloride 0.9% 15 ML NEB ONE (15:00)
== END 2019-06-27 11:27 | disposition home or self-care (01) ==
LOC: WCC 11:26
PROVIDERS: ATTEND Family Medicine
DX: L97.419 Non-pressure chronic ulcer of right heel and midfoot with unspecified severity (principal); I89.0 Lymphedema, not elsewhere classified; I10 Essential (primary) hypertension; E03.9 Hypothyroidism, unspecified; G20 Parkinson's disease; K27.9 Peptic ulcer, site unspecified, unspecified as acute or chronic, without hemorrhage or perforation
CPT/HCPCS: A4218

== ENCOUNTER 2019-07-11 08:24 | Outpatient (CLI) | payer MEDICARE ==
--- NOTE | 2019-07-11 09:38 | PRG ---
DATE OF SERVICE: 07/11/2019 SUBJECTIVE: Mr. Obie Hill is a very pleasant 78-year-old gentleman, accompanied by his , who presents to the wound center for evaluation of an ulceration of the plantar surface of the right great toe. The patient was previously seen in the wound center on 03/10/2018 for the ulceration of the plantar surface of the right great toe. The patient's stated that the ulceration of the right great toe, however, never completely healed. The patient's previously stated that Mr. Hill is currently utilizing shoes with inserts obtained at [facility] [employer]. The patient previously underwent venous ablation by Dr. Hathaway on the right. The patient has been receiving dressing changes of Santyl for the ulceration of the plantar surface of the right great toe. Again, the patient's states that the ulceration has improved in its appearance with the initiation of dressing changes of Santyl. PHYSICAL EXAMINATION: VITAL SIGNS: Temperature 97.5, pulse 69, respirations 16, and blood pressure 152/68. EXTREMITIES: An ulceration of the plantar surface of the right great toe is present, which measures approximately 0.5 x 0.4 cm. Granulation tissue is present within the wound margins. Necrotic and nonviable tissue present within the wound margins were debrided with an excisional full-thickness debridement with the use of a curette. Callus undermining and desiccated tissue at the periphery of the wound were eliminated with the use of scissors. No purulent drainage is associated with the wound. No erythema of the skin surrounding the wound is present. No maceration of the skin of the periwound is noted. Postdebridement measurements were approximately 0.2 x 0.4 cm. ASSESSMENT AND PLAN: 1. Ulceration of plantar surface of right great toe. For the plantar wound, dressing changes of Santyl will be continued on a daily basis after cleansing and irrigation with the assistance of the patient's . I will see Mr. Hill again in 2 weeks. In the meantime, MRI of the right great toe with and without contrast will be obtained to look for findings suggestive of osteomyelitis. The patient and his understand and are in agreement with the preceding treatment plan. 2. Lymphedema tarda. The patient is to continue compression as per Dr. Hathaway. The patient has also been encouraged to utilize his pneumatic pump for in-home lymphedema therapy on a consistent basis. 3. Parkinson's. 4. Hypertension. 5. Hypothyroidism. 6. Peptic ulcer disease. Job ID: [id number]
[2019-07-11] MEDS ORDERED: Sodium Chloride 0.9% 15 ML NEB ONE (16:42)
== END 2019-07-11 08:25 | disposition home or self-care (01) ==
LOC: WCC 08:24
PROVIDERS: ATTEND Family Medicine
DX: L97.519 Non-pressure chronic ulcer of other part of right foot with unspecified severity (principal); I89.0 Lymphedema, not elsewhere classified; I10 Essential (primary) hypertension; E03.9 Hypothyroidism, unspecified; K27.9 Peptic ulcer, site unspecified, unspecified as acute or chronic, without hemorrhage or perforation; G20 Parkinson's disease
CPT/HCPCS: A4218

== ENCOUNTER 2019-07-20 10:36 | Outpatient (CLI) | payer MEDICARE ==
[2019-07-20] MEDS ORDERED: Magnevist 469MG/ML 20 ML VIAL ONE (11:14)
--- NOTE | 2019-07-20 12:45 | MRI ---
MRI RIGHT LOWER EXTREMITY JOINT WITHOUT CONTRAST: HISTORY: L97.519, chronic ulceration. Possible osteomyelitis. COMPARISON: Foot radiograph from January 2018. FINDINGS: The previously described great toe osteomyelitis has predominantly healed. No abnormal foci of marrow signal replacement of the forefoot to suggest osteomyelitis. There is fragmentation and osteonecrosis of the lateral hallux sesamoid. Moderate degenerative disease great toe metatarsal phal angeal joint with osteophyte formation. There is flexion deformity of the interphalangeal joint great toe. The flexor tendon is intact. Hammertoe deformities of all the toes. The intrinsic musculature is atrophic. Mild soft tissue swelling on the plantar aspect of the great t oe with soft tissue callus. No drainable fluid collection. Small open wound on the plantar medial aspect of the great toe. There is a small area of phlegmonous tissue at the caudal portion of the wou nd which nearly abuts the medial cortex of the ungual process. IMPRESSION: 1. Healed osteomyelitis, distal phalanx, great toe. 2. Small medial plantar wound of the great toe distal phalanx with a small phlegmonous collection ext ending from the wound, to nearly the ungual process. No drainable collection. 3. Intrinsic muscle atrophy. 4. Fragmented osteonecrotic lateral hallux sesamoid. 5. Hammertoe deformity of the toes. Transcribed Date/Time: 07/20/2019 1:04 PM
== END 2019-07-20 10:37 | disposition home or self-care (01) ==
LOC: BICMRI 10:36
PROVIDERS: ATTEND Family Medicine
DX: L97.519 Non-pressure chronic ulcer of other part of right foot with unspecified severity (principal); M62.50 Muscle wasting and atrophy, not elsewhere classified, unspecified site; S91.101D Unspecified open wound of right great toe without damage to nail, subsequent encounter; M20.41 Other hammer toe(s) (acquired), right foot
CPT/HCPCS: 82565; A9579

== ENCOUNTER 2019-07-25 09:24 | Outpatient (CLI) | payer MEDICARE ==
--- NOTE | 2019-07-25 10:07 | PRG ---
DATE OF SERVICE: 07/25/2019 SUBJECTIVE HISTORY: Mr. Obie Hill is a very pleasant 78-year-old gentleman, accompanied by his , who presents to the Wound Center for evaluation of an ulceration of the plantar surface of the right great toe. The patient was previously seen in the Wound Center on 03/10/2018 for the ulceration of the plantar surface of the right great toe. The patient's stated that the ulceration of the right great toe, however, never completely healed. The patient's previously stated that Mr. Hill is presently utilizing shoes with inserts obtained at [facility]. The patient previously underwent venous ablation by Dr. Hathaway on the right. The patient has been receiving dressing changes of Santyl for the ulceration of the plantar surface of the right great toe. Again, the patient's states that the ulceration has improved in its appearance with the initiation of dressing changes of Santyl. OBJECTIVE: VITAL SIGNS: Temperature 97.4, pulse 71, respirations 19, and blood pressure 102/51. EXTREMITIES: An ulceration of the plantar surface of the right great toe is present, which measures approximately 0.3 x 0.1 cm. The dimensions of the wound at the time of the patient's last visit were approximately 0.5 x 0.4 cm. Granulation tissue is present within the wound margins. Necrotic and nonviable tissue present within the wound margins was debrided with an excisional full-thickness debridement with the use of scissors, callus undermining and desiccated tissue at the periphery of the wound were also eliminated with the use of scissors. No purulent drainage is associated with the wound. No erythema of the skin surrounding the wound is present. No maceration of the skin of the periwound is noted. The depth of the wound is approximately 0.3 cm. ASSESSMENT AND PLAN: 1. Ulceration of plantar surface of right great toe. For the plantar wound, dressing changes of Santyl will be continued on a daily basis after cleansing and irrigation with the assistance of the patient's . MRI obtained on 07/20/2019 revealed healed osteomyelitis of the distal phalanx of the right great toe. The patient and his have been informed of the results of the MRI. The patient will contact the Wound Center in order to schedule his next appointment. In the meantime, The patient's states that she will continue to perform dressing changes of Santyl on a daily basis after cleansing and irrigation, although the patient and his had been told previously that Hydrofera Blue may be added to the patient's regimen. They have been informed that based upon the dimensions and the appearance of the wound that the addition of Hydrofera Blue to the patient's regimen is not warranted at the present time. 2. Lymphedema tarda. The patient is to continue compression as per Dr. Hathaway. The patient has also been reminded to utilize his pneumatic pump for in-home lymphedema therapy on a consistent basis. 3. Parkinson's. 4. Hypertension. 5. Hypothyroidism. 6. Peptic ulcer disease. Job ID: [id number]
[2019-07-25] MEDS ORDERED: Sodium Chloride 0.9% 15 ML NEB ONE (16:27)
== END 2019-07-25 09:25 | disposition home or self-care (01) ==
LOC: WCC 09:24
PROVIDERS: ATTEND Family Medicine
DX: L97.519 Non-pressure chronic ulcer of other part of right foot with unspecified severity (principal); I89.0 Lymphedema, not elsewhere classified; G20 Parkinson's disease; I10 Essential (primary) hypertension; E03.9 Hypothyroidism, unspecified; K27.9 Peptic ulcer, site unspecified, unspecified as acute or chronic, without hemorrhage or perforation
CPT/HCPCS: A4218

== ENCOUNTER 2020-06-22 22:24 | Inpatient (IN) | payer MEDICARE ==
[2020-06-22 23:04] LABS: #Eosinphils 0.1 thou/uL (0.0-0.7); #Lymphocytes 0.7 thou/uL (1.20-3.40); #Monocytes 0.5 thou/uL (0.11-0.59); #Neutrophils 5.6 thou/uL (1.40-6.50); %Basophils 0.7 % (0.0-1.0); %Lymphocytes 10.4 % (21.0-51.0); %Monocytes 7.1 % (0.0-10.0); %Neutrophils 80.9 % (42.0-75.0); Hemoglobin 16.1 g/dL (14.0-18.0); Mean Corpuscular HGB CONC 32.7 g/dL (32.0-36.0); Mean Corpuscular Hemoglobin 31.2 pg (27.0-31.0); Mean Corpuscular Volume 95.5 fL (78.0-98.0); Platelet Count 159 thou/uL (130-400); RBC Distribution Width 12.5 % (11.5-14.5); Red Blood Cell (RBC) Count 5.15 mill/uL (4.70-6.10); White Blood Cell (WBC) Count 6.9 thou/uL (4.8-10.8)
[2020-06-22 23:23] LABS: ALT (SGPT) Less than 7 U/L (8-55); AST (SGOT) 16 U/L (5-34); Albumin 4.1 g/dL (3.4-4.8); Alkaline Phosphatase 105 U/L (40-110); Anion Gap 15 mmol/L (10-20); BUN (Urea Nitrogen) 21 mg/dL (8.4-25.7); Bilirubin, Total 0.7 mg/dL (0.2-1.2); CK (CPK) 44 U/L (30-200); Calc. Creatinine Clearance 0 mL/min (70-130); Calcium 9.5 mg/dL (7.8-10.44); Carbon Dioxide 31 mmol/L (23-31); Chloride 98 mmol/L (98-107); Estimated GFR-MDRD 63; Globulin 2.6 g/dL (2.4-3.5); Glucose 132 mg/dL (83-110); Lipase 10 U/L (8-78); Potassium 4.5 mmol/L (3.5-5.1); Protein, Total 6.7 g/dL (5.8-8.1); Sodium 139 mmol/L (136-145)
--- NOTE | 2020-06-22 23:29 | RAD ---
EXAM: Single view of the chest HISTORY: Chest pain for 2 days COMPARISON: 01/31/2018 FINDINGS: Single view of the chest shows a normal sized cardiomediastinal silhouette. There is no alice dence of consolidation, mass, or pleural effusion. There appear to be remote right rib fractures. Degenerative changes are seen in the spine. IMPRESSION: No evidence of acute cardiopulmonary disease
[2020-06-22] MEDS ORDERED: Aspirin 325 MG TAB ONE (23:37)
[2020-06-22] MEDS ORDERED: Aspirin Chewable 81 MG TAB ONE ×4 (23:40→23:41)
[2020-06-22] MEDS ORDERED: Mag-Al 1200 mg/1200 mg/30 ML UDCUP ONE (23:53)
[2020-06-22] MEDS ORDERED: Lidocaine Viscous Sol 2% 15 ml UD Cup ONE (23:53)
[2020-06-23 02:57] LABS: Troponin I Less than 0.010 ng/mL (< 0.028)
[2020-06-23 04:44] LABS: Troponin I Less than 0.010 ng/mL (< 0.028)
[2020-06-23] MEDS ORDERED: Ondansetron PF 4 MG/2 ML Vial IVP PRN (04:51)
[2020-06-23] MEDS ORDERED: Ondansetron ODT 4 MG TAB PO PRN (04:51)
[2020-06-23] MEDS ORDERED: Calcium Carbonate 500 MG ChewTAB PO PRN (04:51)
[2020-06-23] MEDS ORDERED: Nitroglycerin 0.4 MG TAB (25 Tab Bottle) SL PRN (04:51)
[2020-06-23] MEDS ORDERED: Acetaminophen 325 MG TAB PO PRN (04:51)
[2020-06-23] MEDS ORDERED: Acetaminophen 650 MG Suppository PR PRN (04:51)
--- NOTE | 2020-06-23 04:59 | PDOC.HHP ---
Hospitalist HPI - History of Present Illness chest pain / abdominal pain History of Present Illness: Case of an 79y/o male with pmhx of cad, parkinson hld anna and htn who comes to hospital due to chest and abdominal pain. patient refers he was on his usual state of health until 2 days ago when she started with some chest and abdominal pain. apart from from this he refers some general malaise general weakness with anorexia. pain is described as pressure, located in epigastric area that may radiate upwards,5/5 of intensity and eating makes it worse. abdominal pain is located in supra pubic area non radiating, patient refers some darker than usual urine as well as worsening incontinence. patient denies any palpitations, sob diaphoresis n/v dysuria fever or chills. Hospitalist ROS - Review of Systems All other systems reviewed; all pertinent +/- noted in HPI/Subj Hospitalist History - Past Surgical History Past Surgical History: reports: Cataract Removal - Family History Family History: reports: no pertinent history - Social History Smoking Status: Never smoker Alcohol: reports: Occassional Drugs: reports: none - Exam General Appearance: NAD, awake alert Eye: PERRL, anicteric sclera ENT: normocephalic atraumatic, no oropharyngeal lesions Neck: supple, symmetric, no JVD, no thyromegaly Heart: RRR, no murmur, no gallops, no rubs Respiratory: CTAB, no wheezes, no rales, no ronchi, normal chest expansion Gastrointestinal: soft, normal bowel sounds, no palpable masses, no hepatomegaly Gastrointestinal - other findings: epigastric pain / suprapubic pain Extremities: no cyanosis, 1+ LE edema Extremities - other findings: stasis dermatitis b/l Skin: normal turgor Neurological: cranial nerve grossly intact, normal sensation to touch, no weakness, no focal deficits, no new deficit Musculoskeletal: normal tone, normal strength, no muscle wasting Psychiatric: normal affect, normal behavior, A&O x 3 Hospitalist Results - Labs Result Diagrams: 06/22/20 22:40 06/22/20 22:40 Lab results: WBC 6.9 thou/uL (4.8-10.8) 06/22/20 22:40 Hgb 16.1 g/dL (14.0-18.0) 06/22/20 22:40 Hct 49.2 % (42.0-52.0) 06/22/20 22:40 MCV 95.5 fL (78.0-98.0) 06/22/20 22:40 Plt Count 159 thou/uL (130-400) 06/22/20 22:40 Neutrophils % 80.9 % (42.0-75.0) H 06/22/20 22:40 Sodium 139 mmol/L (136-145) 06/22/20 22:40 Potassium 4.5 mmol/L (3.5-5.1) 06/22/20 22:40 Chloride 98 mmol/L (98-107) 06/22/20 22:40 Carbon Dioxide 31 mmol/L (23-31) 06/22/20 22:40 BUN 21 mg/dL (8.4-25.7) 06/22/20 22:40 Creatinine 1.13 mg/dL (0.7-1.3) 06/22/20 22:40 Glucose 132 mg/dL (83-110) H 06/22/20 22:40 Calcium 9.5 mg/dL (7.8-10.44) 06/22/20 22:40 Total Bilirubin 0.7 mg/dL (0.2-1.2) 06/22/20 22:40 AST 16 U/L (5-34) 06/22/20 22:40 ALT Less than 7 U/L (8-55) L 06/22/20 22:40 Alkaline Phosphatase 105 U/L (40-110) 06/22/20 22:40 Creatine Kinase 44 U/L (30-200) 06/22/20 22:40 Troponin I Less than 0.010 ng/mL (< 0.028) 06/23/20 04:14 Serum Total Protein 6.7 g/dL (5.8-8.1) 06/22/20 22:40 Albumin 4.1 g/dL (3.4-4.8) 06/22/20 22:40 Lipase 10 U/L (8-78) 06/22/20 22:40 Hospitalist H&P A/P - Problem (1) Chest pain Code(s): R07.9 - CHEST PAIN, UNSPECIFIED Status: Acute (2) Abdominal pain Code(s): R10.9 - UNSPECIFIED ABDOMINAL PAIN Status: Acute (3) CAD (coronary artery disease) Code(s): I25.10 - ATHSCL HEART DISEASE OF [place] CORONARY ARTERY W/O ANG PCTRS Status: Acute (4) HTN (hypertension) Code(s): I10 - ESSENTIAL (PRIMARY) HYPERTENSION Status: Chronic Qualifiers: Hypertension type: essential hypertension Qualified Code(s): I10 - Essential (primary) hypertension (5) Hypothyroidism Code(s): E03.9 - HYPOTHYROIDISM, UNSPECIFIED Status: Chronic Qualifiers: Hypothyroidism type: acquired Qualified Code(s): E03.9 - Hypothyroidism, unspecified (6) Parkinson disease Code(s): G20 - PARKINSON'S DISEASE Status: Acute - Plan Plan: Case of an 79y/o male with the stated pmhx who present w chest and abd pain chest pain - ekg w/o ischemic st changes - cxr normal - initial troponin negative will trend - pain seems to be more concentrated in epigastric area which is reproducible and worsen by food, will start pepcid bid - 2d echo - consider cardio vs gi consult if needed - evaluated modiafiable risk factors with lipid panel and a1c - starting cad protective medication with asa / statin / beta edmundo / acei abdominal pain - suprapubic with changes in some voiding habits, i suspect uti. will send u/a w rflx u/c. - start abx if confirm hypothyroidism / htn / parkinson /cad - continue home meds
[2020-06-23 07:02] LABS: Bilirubin Negative (Negative); Blood, Urine Negative (Negative); Clarity Clear (Clear); Glucose, Urine (Dipstick) Normal (Negative); Ketone, Urine Negative (Negative); Leukocyte Negative Leu/uL (Negative); Nitrite Negative (Negative); Protein, Urine (Dipstick) 10 mg/dL (Neg-Trace); RBC/HPF 0-3 HPF (0-3); Specific Gravity, Urine 1.028 (1.002-1.036); Squamous Epithelial 0-3 HPF (0-3); WBC/HPF 0-3 HPF (0-3)
[2020-06-23 07:03] LABS: Bacteria/HPF 1+ HPF (None Seen)
[2020-06-23 07:04] LABS: Urine Culture Reflex Yes Yes
[2020-06-23] MEDS ORDERED: Famotidine 20 MG TAB ONE (08:02)
[2020-06-23] MEDS ORDERED: Enoxaparin Sodium 40 MG/0.4 ML SYRINGE ONE (08:02)
[2020-06-23] MEDS ORDERED: Aspirin 325 MG TAB ONE (08:02)
[2020-06-23] MEDS: Lisinopril 2.5 MG TAB PO SCH (08:15)
[2020-06-23] MEDS: Carvedilol 3.125 MG TAB PO SCH ×2 (08:15→16:35)
[2020-06-23] MEDS: Enoxaparin Sodium 40 MG/0.4 ML SYRINGE SC SCH (08:15)
[2020-06-23] MEDS: Aspirin 325 mg Enteric Coated Tablet PO SCH (08:15)
[2020-06-23] MEDS ORDERED: Enoxaparin Sodium 40 MG/0.4 ML SYRINGE SC SCH (09:00)
[2020-06-23] MEDS ORDERED: Famotidine 20 MG TAB PO SCH (09:00)
--- NOTE | 2020-06-23 11:54 | CT ---
CTA Angio Chest W Con 06/23/2020 11:25 AM Indication: History of chest pain and elevated d-dimer Technique: Multiple CTA images were obtained of the thorax with IV contrast. 3-D rendering: MIP mounika nstructed images were created and reviewed. Comparison: No relevant prior studies available. Findings: Pulmonary arteries: No central or segmental pulmonary embolus is evident. Heart and Aorta: There are thoracic aortic and coronary artery calcifications. Mediastinum:Normal appearing. No enlarged lymph nodes. Lungs:There are reticulonodular opacities within the posterior segments of both upper lobe suspicious for bronchiolitis. There is also some reticulonodular opacities within the anterior aspect of the right upper lobe. No confluent airspace opacity is evident. Pleural space: Clear. Upper Abdomen: There are mildly prominent loops of small bowel within the upper abdomen, better deta iled on the CT of the abdomen and pelvis. Osseous Structures: There is scattered degenerative and osteoarthritic change present. No acute frac ture or subluxation demonstrated. Small sclerotic lesion within T9 is stable to comparison CT the abdomen and pelvis dated February 05, 2018. Soft tissues:No abnormality. Other findings:None. Impression: 1. No central or segmental pulmonary embolus demonstrated. 2. Scattered reticulonodular opacities within the upper lobe suspicious for bronchiolitis of infectio us or inflammatory etiology. Recommend appropriate therapy and follow-up CT evaluation in 6-8 weeks to document resolution.
--- NOTE | 2020-06-23 12:01 | CT ---
CT OF THE ABDOMEN AND PELVIS WITH IV CONTRAST INDICATION: History of abdominal pain and elevated d-dimer COMPARISON: None FINDINGS: ABDOMEN: Lung bases: Clear Liver: No focal lesion. Gallbladder: Mildly distended Pancreas: Normal. Adrenal glands: Normal. Spleen: Normal. Kidneys and ureters: Normal. No hydronephrosis. Vasculature: There are moderate vascular calcifications seen involving the visualized vasculature. Lymph nodes:No lymphadenopathy. Free fluid in abdomen:There is mild mesenteric edema involving multiple dilated loops of small bowel. PELVIS: Small and large bowel: There are dilated loops of small bowel which transition to a normal caliber in the left mid abdomen on image 48 of series 3. The terminal ileum is normal-appearing. Appendix:Surgically absent Bladder: Decompressed Rectal and perirectal soft tissues:Normal. Reproductive structures: Mild prostate enlargement Free fluid in pelvis: Mild free fluid in the pelvis Lymphadenopathy pelvis: No lymphadenopathy is evident. Osseous structures: No acute osseous abnormality. No destructive osteolytic or osteoblastic lesion i s identified. There is scattered degenerative and osteoarthritic changes. Soft tissues:Mild anasarca. Mild edema seen within a fat-containing right inguinal canal hernia on th e right. IMPRESSION: 1. Findings suspicious for moderate partial small bowel obstruction with a suggested transition zone in the left mid abdomen. 2. Mild free fluid and anasarca.
[2020-06-23] MEDS: Dextrose 5 %-0.45 % NaCl 1,000 ML IV SCH (15:30)
[2020-06-23] MEDS ORDERED: Iopamidol-370 76% 500 ML 1 ML ONE (15:35)
--- NOTE | 2020-06-23 20:05 | CON ---
DATE OF CONSULTATION: 06/23/2020 CHIEF COMPLAINT: Bloating and abdominal distention. HISTORY OF PRESENT ILLNESS: This is a 79-year-old male, admitted overnight with abdominal and chest pain and discomfort. He notes abdominal bloating associated with weakness. He has not felt hungry in the last few days, pressure in the upper abdomen. No significant pain in the lower abdomen. He did have a small bowel movement this morning. It has been a few days since he had a bowel movement before that. No history of chronic inflammatory bowel disease. He does have chronic constipation. No chronic diarrhea. He has never had any abdominal surgery before. Pain is described as 5/10, more of a pressure. He has not vomited since he has been here. PAST MEDICAL HISTORY: Includes CAD, Parkinson's, sleep apnea, and hypertension. PAST SURGICAL HISTORY: Cataract. MEDICATIONS: See list. ALLERGIES: LATEX. SOCIAL HISTORY: No smoking. Occasional alcohol. No other drugs. REVIEW OF SYSTEMS: 10-system review of systems otherwise negative other than what is described above. PHYSICAL EXAMINATION: VITAL SIGNS: His pulse is 69, blood pressure 150/108. He is afebrile. CHEST: Coarse breath sounds. HEART: Regular rate. ABDOMEN: Soft, minimally distended, minimally diffusely mildly tender without guarding or rebound. No abdominal hernias. No inguinal hernias. EXTREMITIES: No ischemia or edema to extremities. LABORATORY DATA: White blood cell count is 6.9, hemoglobin normal. Creatinine normal at 1.13. CT scan reviewed, which shows some dilated intestine and some edema to the mesentery. ASSESSMENT: Potentially small bowel obstruction versus ileus versus fecal impaction (of note on his CT scan, he has stool from cecum to rectum, nearly the entire colon was full of stool). PLAN: I think definitive test would be small-bowel follow-through. I will put in for Gastrografin small-bowel follow-through tomorrow. He could swallow that if able. If not, could place NG tube for that test and that will rule out small-bowel obstruction as well as clean out his colon. Job ID: [id number]
[2020-06-23] MEDS: Ubidecarenone 50 MG CAP PO SCH (22:22)
[2020-06-23] MEDS: Entacapone 200 mg Tablet PO SCH (22:22)
[2020-06-23] MEDS: Carbidopa/Levodopa CR 50-200 mg Tablet PO SCH (22:23)
[2020-06-23] MEDS: rOPINIRole HCl 1 MG TAB PO SCH (22:23)
[2020-06-23] MEDS: Atorvastatin Calcium 10 MG TAB PO SCH (22:24)
[2020-06-24 05:07] LABS: #Eosinphils 0.1 thou/uL (0.0-0.7); #Lymphocytes 0.7 thou/uL (1.20-3.40); #Monocytes 0.7 thou/uL (0.11-0.59); #Neutrophils 6.2 thou/uL (1.40-6.50); %Basophils 0.2 % (0.0-1.0); %Eosinophils 0.8 % (0.0-10.0); %Lymphocytes 8.5 % (21.0-51.0); %Monocytes 9.6 % (0.0-10.0); Hemoglobin 14.4 g/dL (14.0-18.0); Mean Corpuscular HGB CONC 31.7 g/dL (32.0-36.0); Mean Corpuscular Hemoglobin 30.6 pg (27.0-31.0); Mean Corpuscular Volume 96.4 fL (78.0-98.0); Mean Platelet Volume 8.5 fL (7.4-10.4); Platelet Count 156 thou/uL (130-400); RBC Distribution Width 12.3 % (11.5-14.5); White Blood Cell (WBC) Count 7.7 thou/uL (4.8-10.8)
[2020-06-24 05:31] LABS: Anion Gap 12 mmol/L (10-20); BUN (Urea Nitrogen) 18 mg/dL (8.4-25.7); Calc. Creatinine Clearance 96 mL/min (70-130); Calcium 8.7 mg/dL (7.8-10.44); Carbon Dioxide 27 mmol/L (23-31); Cardiac Risk 2.5 (Less than 4.5); Chloride 100 mmol/L (98-107); Cholesterol 145 mg/dl (< 200 Desired); Estimated GFR-MDRD 79; Glucose 116 mg/dL (83-110); HDL Cholesterol 59 mg/dL (>60 Neg Risk); LDL Cholesterol, Calculated 71 mg/dL; Potassium 4.3 mmol/L (3.5-5.1); Sodium 135 mmol/L (136-145); Triglycerides 73 mg/dL (Less than 150)
[2020-06-24] MEDS: Dextrose 5 %-0.45 % NaCl 1,000 ML IV SCH ×2 (05:42→16:06)
[2020-06-24] MEDS: Carvedilol 3.125 MG TAB PO SCH ×3 (10:03→16:25)
[2020-06-24] MEDS: Ascorbic Acid 500 mg Chewable Tablet PO SCH (10:04)
[2020-06-24] MEDS: Amantadine HCl 100 mg Capsule PO SCH ×2 (10:04→13:08)
[2020-06-24] MEDS: Aspirin 325 mg Enteric Coated Tablet PO SCH (10:04)
[2020-06-24] MEDS: Calcium Carbonate 600 MG + Vit D TAB PO SCH (10:05)
[2020-06-24] MEDS: Entacapone 200 mg Tablet PO SCH ×3 (10:05→21:20)
[2020-06-24] MEDS: Ezetimibe 10 MG TAB PO SCH (10:06)
[2020-06-24] MEDS: Lisinopril 2.5 MG TAB PO SCH (10:06)
[2020-06-24] MEDS: Carbidopa/Levodopa CR 50-200 mg Tablet PO SCH ×3 (10:06→21:21)
[2020-06-24] MEDS: Cholecalciferol 1,000 UNITS (25 MCG) TAB PO SCH (10:06)
[2020-06-24] MEDS: rOPINIRole HCl 1 MG TAB PO SCH ×3 (10:07→21:20)
[2020-06-24] MEDS: Tamsulosin HCl 0.4 MG CAP PO SCH (10:08)
[2020-06-24] MEDS: Enoxaparin Sodium 40 MG/0.4 ML SYRINGE SC SCH (10:12)
[2020-06-24 10:25] LABS: SARS-CoV-2 MS2 Positive; SARS-CoV-2 N Gene Negative; SARS-CoV-2 S Gene Negative; SARS-CoV-2 by NAA Not Detected (NotDetected); SARS-CoV-2 orf1ab Negative
--- NOTE | 2020-06-24 12:33 | PDOC.HOSPP ---
- Subjective Encounter Date: 06/24/20 - Objective Vital Signs & Weight: Vital Signs (12 hours) Temp Pulse Resp BP BP Pulse Ox 06/24/20 10:06 58 L 128/59 L 06/24/20 07:09 98.2 F 58 L 119/57 L 97 06/24/20 04:00 98.4 F 62 16 123/66 97 Weight Weight 229 lb 9.6 oz I&O: 06/23/20 06/24/20 06/25/20 06:59 06:59 06:59 Intake Total 1240 Balance 1240 Result Diagrams: 06/24/20 04:35 06/24/20 04:35 Hospitalist ROS - Medication Medications: Active Medications Generic Name Dose Route Start Last Admin Trade Name Freq PRN Reason Stop Dose Admin Acetaminophen 650 mg 06/23/20 04:51 06/23/20 16:35 Acetaminophen 325 Mg Tab PO 650 mg Q4H PRN Administration Headache/Fever/Mild Pain (1-3) Amantadine HCl 100 mg 06/24/20 09:00 06/24/20 10:04 Amantadine Hcl 100 Mg Capsule PO 100 mg 0900,1200 LEONEL Administration Ascorbic Acid 500 mg 06/24/20 09:00 06/24/20 10:04 Ascorbic Acid 500 Mg Chewable Tablet PO 500 mg DAILY LEONEL Administration Aspirin 325 mg 06/23/20 09:00 06/24/20 10:04 Aspirin 325 Mg Enteric Coated Tablet PO 325 mg DAILY LEONEL Administration Atorvastatin Calcium 10 mg 06/23/20 21:00 06/23/20 22:24 Atorvastatin Calcium 10 Mg Tab PO 10 mg HS LEONEL Administration Calcium/Vitamin D 1 tab 06/24/20 09:00 06/24/20 10:05 Calcium Carbonate 600 Mg + Vit D Tab PO 1 tab DAILY LEONEL Administration Carbidopa/Levodopa 1 tab 06/23/20 21:00 06/24/20 10:06 Carbidopa/Levodopa Cr 50-200 Mg Tablet PO 1 tab TID LEONEL Administration Carvedilol 3.125 mg 06/23/20 08:00 06/24/20 10:03 Carvedilol 3.125 Mg Tab PO 3.125 mg BID-WM LEONEL Administration Cholecalciferol 1,000 units 06/24/20 09:00 06/24/20 10:06 Cholecalciferol 1,000 Units (25 Mcg) Tab PO 1,000 units DAILY LEONEL Administration Coenzyme Q10 100 mg 06/23/20 21:00 06/23/20 22:22 Ubidecarenone 50 Mg Cap PO 100 mg HS LEONEL Administration Ezetimibe 10 mg 06/24/20 09:00 06/24/20 10:06 Ezetimibe 10 Mg Tab PO 10 mg DAILY LEONEL Administration Enoxaparin Sodium 40 mg 06/23/20 09:00 06/24/20 10:12 Enoxaparin Sodium 40 Mg/0.4 Ml Syringe SC 40 mg 0900 LEONEL Administration Entacapone 200 mg 06/23/20 21:00 06/24/20 10:05 Entacapone 200 Mg Tablet PO 200 mg TID LEONEL Administration Dextrose/Sodium Chloride 1,000 mls @ 75 mls/hr 06/23/20 13:45 06/24/20 05:42 D5 1/2 Ns IV 1,000 mls .[id number] LEONEL Administration Lisinopril 2.5 mg 06/23/20 09:00 06/24/20 10:06 Lisinopril 2.5 Mg Tab PO 2.5 mg DAILY LEONEL Administration Pantoprazole Sodium 40 mg 06/23/20 21:00 06/23/20 22:23 Pantoprazole 40 Mg Tab PO 40 mg HS LEONEL Administration Ropinirole HCl 3 mg 06/23/20 21:00 06/24/20 10:07 Ropinirole Hcl 1 Mg Tab PO 3 mg TID LEONEL Administration Sertraline HCl 100 mg 06/24/20 09:00 06/24/20 10:07 Sertraline Hcl 100 Mg Tab PO 100 mg DAILY LEONEL Administration Tamsulosin HCl 0.4 mg 06/24/20 09:00 06/24/20 10:08 Tamsulosin Hcl 0.4 Mg Cap PO 0.4 mg DAILY LEONEL Administration - Exam General Appearance: awake alert ENT: normocephalic atraumatic Neck: supple, no JVD Heart: RRR Respiratory: no tachypnea Gastrointestinal: soft Neurological: cranial nerve grossly intact, no focal deficits Hosp A/P (1) Small bowel obstruction Code(s): K56.609 - UNSP INTESTNL OBST, UNSP TO PARTIAL VERSUS COMPLETE OBST Status: Acute (2) CAD (coronary artery disease) Code(s): I25.10 - ATHSCL HEART DISEASE OF [place] CORONARY ARTERY W/O ANG PCTRS Status: Acute (3) Parkinson disease Code(s): G20 - PARKINSON'S DISEASE Status: Acute (4) HTN (hypertension) Code(s): I10 - ESSENTIAL (PRIMARY) HYPERTENSION Status: Chronic Qualifiers: Hypertension type: essential hypertension Qualified Code(s): I10 - Essential (primary) hypertension (5) Hypothyroidism Code(s): E03.9 - HYPOTHYROIDISM, UNSPECIFIED Status: Chronic Qualifiers: Hypothyroidism type: acquired Qualified Code(s): E03.9 - Hypothyroidism, unspecified - Plan CT scan of the abdomen showing possible partial small bowel suction. The patient had some bowel movements this morning. Small bowel follow-through is ordered for today. She is troponins were unremarkable. His pain is epigastric and likely noncardiac.
--- NOTE | 2020-06-24 13:53 | RAD ---
Exam: Gastrografin small bowel series HISTORY: Small bowel obstruction FINDINGS: Patient was administered Gastrografin oral contrast opacified multiple distended loops of s mall bowel. Delayed Gastrografin does opacify the colon on the one hour and 45 minute images. No evidence of high-grade obstruction IMPRESSION: No evidence of high-grade obstruction.
[2020-06-24] MEDS ORDERED: MD-Gastroview 120 ML BOT ONE (16:13)
[2020-06-24] MEDS: Ubidecarenone 50 MG CAP PO SCH (21:21)
[2020-06-24] MEDS: Atorvastatin Calcium 10 MG TAB PO SCH (21:21)
[2020-06-25 04:36] LABS: #Eosinphils 0.1 thou/uL (0.0-0.7); #Lymphocytes 0.7 thou/uL (1.20-3.40); #Monocytes 0.5 thou/uL (0.11-0.59); #Neutrophils 3.2 thou/uL (1.40-6.50); %Basophils 0.2 % (0.0-1.0); %Eosinophils 2.9 % (0.0-10.0); %Lymphocytes 16.1 % (21.0-51.0); %Monocytes 11.1 % (0.0-10.0); %Neutrophils 69.7 % (42.0-75.0); Hemoglobin 13.2 g/dL (14.0-18.0); Mean Corpuscular HGB CONC 32.1 g/dL (32.0-36.0); Mean Corpuscular Volume 96.5 fL (78.0-98.0); Mean Platelet Volume 8.2 fL (7.4-10.4); Platelet Count 129 thou/uL (130-400); RBC Distribution Width 12.2 % (11.5-14.5); Red Blood Cell (RBC) Count 4.25 mill/uL (4.70-6.10); White Blood Cell (WBC) Count 4.6 thou/uL (4.8-10.8)
[2020-06-25 05:05] LABS: Anion Gap 11 mmol/L (10-20); BUN (Urea Nitrogen) 14 mg/dL (8.4-25.7); Calc. Creatinine Clearance 106 mL/min (70-130); Calcium 8.4 mg/dL (7.8-10.44); Carbon Dioxide 27 mmol/L (23-31); Chloride 105 mmol/L (98-107); Estimated GFR-MDRD 87; Glucose 88 mg/dL (83-110); Potassium 3.3 mmol/L (3.5-5.1); Sodium 140 mmol/L (136-145)
[2020-06-25] MEDS ORDERED: Potassium Chloride 20 MEQ TAB PO SCH (08:00)
[2020-06-25] MEDS: rOPINIRole HCl 1 MG TAB PO SCH ×2 (09:21→14:23)
[2020-06-25] MEDS: Tamsulosin HCl 0.4 MG CAP PO SCH (09:22)
[2020-06-25] MEDS: Cholecalciferol 1,000 UNITS (25 MCG) TAB PO SCH (09:22)
[2020-06-25] MEDS: Calcium Carbonate 600 MG + Vit D TAB PO SCH (09:22)
[2020-06-25] MEDS: Ezetimibe 10 MG TAB PO SCH (09:22)
[2020-06-25] MEDS: Aspirin 325 mg Enteric Coated Tablet PO SCH (09:22)
[2020-06-25] MEDS: Amantadine HCl 100 mg Capsule PO SCH ×2 (09:23→11:09)
[2020-06-25] MEDS: Entacapone 200 mg Tablet PO SCH ×2 (09:24→14:23)
[2020-06-25] MEDS: Enoxaparin Sodium 40 MG/0.4 ML SYRINGE SC SCH (09:25)
[2020-06-25] MEDS: Ascorbic Acid 500 mg Chewable Tablet PO SCH (09:25)
[2020-06-25] MEDS: Carbidopa/Levodopa CR 50-200 mg Tablet PO SCH ×2 (09:25→14:23)
[2020-06-25 15:31] VITALS: BMI 30.3
[2020-06-25 16:26] VITALS: BP 174/78; TEMP 97.7
--- NOTE | 2020-06-26 01:24 | DIS ---
DATE OF ADMISSION: 06/25/2020 DATE OF DISCHARGE: 06/25/2020 DISCHARGE DIAGNOSES: 1. Partial small bowel obstruction. 2. Severe constipation. 3. Coronary artery disease. 4. Parkinson disease. 5. Hypertension. 6. Hypothyroidism. DISCHARGE MEDICATIONS: MiraLAX 1 packet daily as needed for constipation. HISTORY OF PRESENT ILLNESS AND HOSPITAL COURSE: The patient is a 79-year-old male with past medical history of coronary artery disease, Parkinson disease, hyperlipidemia, who presented to the hospital with epigastric pain and malaise. The patient also complained of constipation and nausea. CT scan of the abdomen revealed presence of severe constipation with possible partial small bowel obstruction. Gastrografin small bowel series was performed, which did not show any evidence of obstruction and help improve the patient's symptoms after having multiple bowel movements. Patient was instructed to increase fiber in his diet, and he was prescribed MiraLAX as needed for constipation. Job ID: [id number]
--- NOTE | 2020-06-27 06:31 | PQF ---
CLINICAL DOCUMENTATION CLARIFICATION FORM: Dear : Mayank Licona Date / Time: 06/27/2020 0630 Please exercise your independent, professional judgment in responding to the clarification form. Clinical indicators are provided on the bottom of this form for your review Please check appropriate box(es): Conflicting documentation was noted in the Medical Record; please clarify if patient is being treated/monitored for: [ > ] Partial Small bowel Obstruction If patient with Partial SBO, Can you please specify etiology if due to: [ > ] Constipation [ ] Fecal Impaction [ ] Other diagnosis, please specify [ ] Unspecified [ ] Without bowel obstruction [ ] Other diagnosis, please specify [ ] Unable to determine Physician Signature: Date/Time: For continuity of documentation, please document condition throughout progress notes and discharge summary. Thank You. To be completed by CDI/Coding staff for physician review: Present Clinical Indicators - Signs / Symptoms / Labs Results and Location in Medical Record [X] CT Abdomen : Suspicious for moderate partial small bowel obstructiion Imaging Dr Cornejo 06/23 [X] Small Bowel X-ray : No evidence of high-grade obstruction Imaging Dr Arredondo 06/24 [X] Presented with Abdominal pain H&P p1 06/23 Dr Gibbs [X] Potentially small bowel obstruction versus ileus versus fecal impaction Consult Dr Keshia Jerome 06/23 [X] Severe constipation DS p1 06/25 Dr Licona Present Risk Factors Results and Location in Medical Record [X] 79 year-old Male H&P p1 06/23 Dr Gibbs [X] Chronic Constipation Consult Dr Keshia Jerome 06/23 Present Treatments Results and Location in Medical Record [X] IVF NS 1L OCT 18 [X] Protonix 40mg oral OCT 18 [X] GE Consult Consult Dr Keshia Jerome 06/23 CDS/Entry Level Sales Consultant Signature: Myesha Thakkar Phone #: [phone] Date/Time: 06/27/2020629 This is a permanent part of the Medical Record [facility]
--- NOTE | 2020-06-30 13:12 | EKG ---
Test Reason : Blood Pressure : / mmHG Vent. Rate : 075 BPM Atrial Rate : 075 BPM P-R Int : 206 ms QRS Dur : 076 ms QT Int : 388 ms P-R-T Axes : 063 052 049 degrees QTc Int : 433 ms Normal sinus rhythm Possible Left atrial enlargement Borderline ECG Confirmed by RENE ALLEN ([id number]), commissioning editor [employer] AREVALO ([id number]) on 06/30/2020 1:12:28 PM Referred By: Confirmed By:RENE ALLEN
== END 2020-06-25 17:34 | disposition home or self-care (01) | DRG 392 ==
LOC: ERS 22:24 → ERHOLD 06-23 01:40 → 2SE 06-23 13:33 → 2NO 06-24 22:52 → OBSVTOIN 06-25 08:44
PROVIDERS: ADMIT Internal Medicine; ATTEND Internal Medicine
DX: K59.09 Other constipation (principal); I25.10 Atherosclerotic heart disease of native coronary artery without angina pectoris; G20 Parkinson's disease; I10 Essential (primary) hypertension; E03.9 Hypothyroidism, unspecified; Z20.828 Contact with and (suspected) exposure to other viral communicable diseases; F32.9 Major depressive disorder, single episode, unspecified; E78.5 Hyperlipidemia, unspecified; G47.33 Obstructive sleep apnea (adult) (pediatric); Z98.49 Cataract extraction status, unspecified eye; Z91.040 Latex allergy status; Z79.899 Other long term (current) drug therapy; Z79.82 Long term (current) use of aspirin
CPT/HCPCS: 36415; 71045; 71275; 74177; 74250; 80048; 80053; 80061; 81001; 82550; 83036; 83690; 84443; 84484; 85025; 85379; 87086; 87635; 93005; 93306; 94760; 96372; G0378; J1650; Q9963; U0003

== ENCOUNTER 2020-07-10 18:38 | Emergency (ER) | payer MEDICARE ==
[2020-07-10 19:29] LABS: #Eosinphils 0.3 thou/uL (0.0-0.7); #Lymphocytes 1.1 thou/uL (1.20-3.40); #Monocytes 0.5 thou/uL (0.11-0.59); #Neutrophils 3.6 thou/uL (1.40-6.50); %Basophils 0.1 % (0.0-1.0); %Eosinophils 4.9 % (0.0-10.0); %Lymphocytes 20.2 % (21.0-51.0); %Monocytes 9.5 % (0.0-10.0); %Neutrophils 65.2 % (42.0-75.0); Hemoglobin 14.7 g/dL (14.0-18.0); Mean Corpuscular HGB CONC 31.5 g/dL (32.0-36.0); Mean Corpuscular Hemoglobin 30.1 pg (27.0-31.0); Mean Corpuscular Volume 95.5 fL (78.0-98.0); Mean Platelet Volume 8.4 fL (7.4-10.4); Platelet Count 128 thou/uL (130-400); RBC Distribution Width 12.1 % (11.5-14.5); Red Blood Cell (RBC) Count 4.89 mill/uL (4.70-6.10); White Blood Cell (WBC) Count 5.5 thou/uL (4.8-10.8)
[2020-07-10 19:49] LABS: ALT (SGPT) Less than 7 U/L (8-55); AST (SGOT) 21 U/L (5-34); Alkaline Phosphatase 104 U/L (40-110); Anion Gap 13 mmol/L (10-20); BUN (Urea Nitrogen) 19 mg/dL (8.4-25.7); Bilirubin, Total 0.6 mg/dL (0.2-1.2); Calc. Creatinine Clearance 0 mL/min (70-130); Calcium 9.3 mg/dL (7.8-10.44); Carbon Dioxide 29 mmol/L (23-31); Chloride 102 mmol/L (98-107); Estimated GFR-MDRD 69; Globulin 2.9 g/dL (2.4-3.5); Glucose 100 mg/dL (83-110); Potassium 4.4 mmol/L (3.5-5.1); Protein, Total 6.9 g/dL (5.8-8.1); Sodium 140 mmol/L (136-145)
--- NOTE | 2020-07-10 19:59 | RAD ---
THREE VIEWS LEFT HAND: 07/10/20 COMPARISON: Wrist radiograph 05/25/17. HISTORY: Fall with left hand pain. FINDINGS: Three views of the left hand shows no evidence of acute fracture or dislocation. There is remodeling of the distal radius secondary to a remote fracture which was seen on the prior radiograph. A remote ulnar styloid process fracture is seen. There is mild radiocarpal degenerative change. No focal soft tissue swelling is seen. IMPRESSION: No evidence of acute osseous abnormality. POS: [facility]
[2020-07-10] MEDS ORDERED: Lidocaine 1% w/Epinephrine 1:100K 20 ML VIAL ONE (20:14)
[2020-07-10] MEDS ORDERED: Bacitracin 1 PK ONE (21:25)
--- NOTE | 2020-07-10 21:27 | CT ---
NONCONTRAST CT HEAD: 07/10/20 HISTORY: Injury after a fall. Patient tripped and fell and hit head. Patient on aspirin. COMPARISON: 04/10/19. FINDINGS: There is a mild diminished attenuation seen in the periventricular white matter which is nonspecific but likely reflective of mild chronic small vessel ischemic changes. No acute cortical infarction, he morrhage, mass effect or midline shift is seen. Ventricular system is similar in size, shape and posi tion for the degree of sulcal atrophy. The visualized paranasal sinuses and mastoid air cells are clear. No calvarium fracture is seen. Ther e is minimal scalp soft tissue swelling in the right anterior lateral frontal region. However, this i s sight of a prior scalp hematoma and could be related to mild scarring in this region. There is area of low density within the right parietal scalp soft tissues likely related to small scalp soft tissu e hematoma. IMPRESSION: 1. No acute intracranial abnormality demonstrated. 2. Right parietal scalp hematoma. POS: [facility]
--- NOTE | 2020-07-10 21:44 | CT ---
CT CERVICAL SPINE WITHOUT CONTRAST: 07/10/20 COMPARISON: 05/29/17 HISTORY: Trip and fall and hit head on something. Neck pain. TECHNIQUE: Multiple contiguous axial images were obtained in a CT of the cervical spine without contrast. Sagitt al and coronal reformats were performed. FINDINGS: There are mild to moderate degenerative changes in the cervical spine with intervertebral disc space narrowing. The vertebral bodies demonstrate normal height and alignment without acute fracture or sub luxation. No prevertebral soft tissue swelling is seen. The posterior facets are well aligned. Normal alignment of the skull base with the cervical spine is seen. IMPRESSION: Degenerative changes of the cervical spine without acute osseous abnormality. POS: [facility]
== END 2020-07-10 22:15 | disposition home or self-care (01) ==
LOC: ERS 18:38
DX: S01.01XA Laceration without foreign body of scalp, initial encounter (principal); S61.213A Laceration without foreign body of left middle finger without damage to nail, initial encounter; E78.5 Hyperlipidemia, unspecified; I10 Essential (primary) hypertension; G20 Parkinson's disease; F32.9 Major depressive disorder, single episode, unspecified; Z79.899 Other long term (current) drug therapy; Z79.82 Long term (current) use of aspirin; W22.8XXA Striking against or struck by other objects, initial encounter
CPT/HCPCS: 12002; 36415; 70450; 72125; 80053; 85025; 93005

== ENCOUNTER 2020-09-06 10:14 | Emergency (ER) | payer MEDICARE ==
[2020-09-06] MEDS ORDERED: Dexamethasone 10 MG/ML VIAL ONE (10:41)
[2020-09-06 11:36] LABS: #Lymphocytes 0.3 thou/uL (1.20-3.40); #Monocytes 0.3 thou/uL (0.11-0.59); #Neutrophils 2.7 thou/uL (1.40-6.50); %Eosinophils 0.2 % (0.0-10.0); %Lymphocytes 8.7 % (21.0-51.0); %Monocytes 8.5 % (0.0-10.0); %Neutrophils 82.6 % (42.0-75.0); Hemoglobin 12.4 g/dL (14.0-18.0); Mean Corpuscular Hemoglobin 31.1 pg (27.0-31.0); Mean Corpuscular Volume 94.2 fL (78.0-98.0); Mean Platelet Volume 8.1 fL (7.4-10.4); Platelet Count 105 thou/uL (130-400); Platelet Morphology Comment Appears Decreased; RBC Distribution Width 12.2 % (11.5-14.5); RBC Morphology Normal; Red Blood Cell (RBC) Count 3.98 mill/uL (4.70-6.10); White Blood Cell (WBC) Count 3.3 thou/uL (4.8-10.8)
[2020-09-06 11:39] LABS: Alcohol Less than 10 mg/dL (Less than 10); Salicylate Less than 8.0 mg/dL (15.0-30.0)
[2020-09-06 11:40] LABS: ALT (SGPT) Less than 7 U/L (8-55); AST (SGOT) 19 U/L (5-34); Albumin 3.5 g/dL (3.4-4.8); Alkaline Phosphatase 84 U/L (40-110); Anion Gap 16 mmol/L (10-20); BUN (Urea Nitrogen) 19 mg/dL (8.4-25.7); Bilirubin, Total 0.6 mg/dL (0.2-1.2); CK (CPK) 48 U/L (30-200); Calc. Creatinine Clearance 0 mL/min (70-130); Calcium 8.6 mg/dL (7.8-10.44); Carbon Dioxide 26 mmol/L (23-31); Chloride 97 mmol/L (98-107); Globulin 3.1 g/dL (2.4-3.5); Glucose 98 mg/dL (83-110); Lipase 6 U/L (8-78); Potassium 4.2 mmol/L (3.5-5.1); Protein, Total 6.6 g/dL (5.8-8.1); Sodium 135 mmol/L (136-145)
[2020-09-06 11:40] LABS: Bacteria/HPF None Seen HPF (None Seen); Bilirubin Negative (Negative); Blood, Urine Negative (Negative); Clarity Clear (Clear); Glucose, Urine (Dipstick) Normal (Negative); Ketone, Urine Negative (Negative); Leukocyte Negative Leu/uL (Negative); Nitrite Negative (Negative); Protein, Urine (Dipstick) 30 mg/dL (Neg-Trace); RBC/HPF 0-3 HPF (0-3); Specific Gravity, Urine 1.028 (1.002-1.036); Squamous Epithelial None Seen HPF (0-3); Urobilinogen Normal mg/dL (Less than 2); pH, Urine 6.5 (5.0-9.0)
[2020-09-06 12:05] LABS: Amphetamine Not Detected (NotDetected); Barbiturates Screen Not Detected (NotDetected); Benzodiazepine Screen Not Detected (NotDetected); Cocaine Metabolite Screen Not Detected (NotDetected); Medtox Control Line Valid? VALID (VALID); Medtox Reader # READER 4; Methadone Not Detected (NotDetected); Methamphetamine Not Detected (NotDetected); Opiate Screen Not Detected (NotDetected); Oxycodone Screen Not Detected (NotDetected); Phencyclidine (PCP) Not Detected (NotDetected); THC/Cannabinoid Screen Not Detected (NotDetected); Tricyclic Screen Detected (NotDetected)
[2020-09-06] MEDS ORDERED: Iopamidol-370 76% 500 ML 1 ML ONE (13:34)
== END 2020-09-06 14:45 | disposition home or self-care (01) ==
LOC: ERS 10:14
DX: U07.1 COVID-19 (principal); E78.5 Hyperlipidemia, unspecified; I10 Essential (primary) hypertension; G47.30 Sleep apnea, unspecified; G20 Parkinson's disease; Z79.899 Other long term (current) drug therapy
CPT/HCPCS: 36415; 70450; 71045; 71275; 80053; 80306; 80307; 81003; 81015; 82140; 82550; 83690; 83880; 84443; 84484; 85025; 85379; 87040; 93005; 96365; J1100; Q9967

== ENCOUNTER 2020-11-28 18:11 | Inpatient (IN) | payer MEDICARE ==
[2020-11-28] MEDS ORDERED: Acetaminophen 500 MG TAB ONE (18:35)
[2020-11-28 19:22] LABS: Hemoglobin 10.7 g/dL (14.0-18.0); Mean Corpuscular HGB CONC 34.2 g/dL (32.0-36.0); Mean Corpuscular Hemoglobin 31.8 pg (27.0-31.0); Platelet Count 142 thou/uL (130-400); RBC Distribution Width 14.2 % (11.5-14.5); Red Blood Cell (RBC) Count 3.38 mill/uL (4.70-6.10); White Blood Cell (WBC) Count 9.9 thou/uL (4.8-10.8)
[2020-11-28 19:32] LABS: ALT (SGPT) Less than 7 U/L (8-55); AST (SGOT) 11 U/L (5-34); Albumin 3.5 g/dL (3.4-4.8); Alkaline Phosphatase 90 U/L (40-110); Anion Gap 13 mmol/L (10-20); BUN (Urea Nitrogen) 24 mg/dL (8.4-25.7); Bilirubin, Total 1.1 mg/dL (0.2-1.2); Calc. Creatinine Clearance 0 mL/min (70-130); Calcium 8.8 mg/dL (7.8-10.44); Carbon Dioxide 28 mmol/L (23-31); Chloride 99 mmol/L (98-107); Globulin 2.6 g/dL (2.4-3.5); Glucose 130 mg/dL (83-110); Potassium 4.9 mmol/L (3.5-5.1); Protein, Total 6.1 g/dL (5.8-8.1); Sodium 135 mmol/L (136-145)
[2020-11-28 19:33] LABS: Band 2 % (5-11); Lymphocytes 2 % (21-51); MDiff Complete? YES; Monocytes 8 % (0-10); Neutrophil 88 % (42-75); Ovalocytes SLIGHT = 2-5 cells (100X) (0-1/hpf); Platelet Morphology Comment Appears Adequate; Polychromasia SLIGHT = 2-3 cells (100X) (0-2/hpf)
[2020-11-28 20:35] LABS: INR-International Normal Ratio 1.2; PTT 34.6 sec (22.9-36.1); Prothrombin Time 15.2 sec (12.0-14.7)
[2020-11-28] MEDS ORDERED: traMADol HCl 50 MG TAB PO PRN (22:01)
[2020-11-28] MEDS ORDERED: Acetaminophen 500 MG TAB PO SCH (22:01)
[2020-11-28] MEDS ORDERED: Ondansetron PF 4 MG/2 ML Vial IVP PRN (22:01)
[2020-11-28] MEDS ORDERED: Dextrose 5% in Water 1,000 ML IV PRN (22:01)
[2020-11-28] MEDS ORDERED: hydrALAZINE 20 MG/ML VIAL SLOW IVP PRN (22:01)
[2020-11-28] MEDS ORDERED: Dextrose 50% Abboject 50 ML SYRINGE SLOW IVP PRN (22:01)
[2020-11-28] MEDS ORDERED: Ondansetron ODT 4 MG TAB PO PRN (22:01)
[2020-11-28] MEDS ORDERED: Sodium Chloride 0.9% 1,000 ML IV SCH (22:01)
[2020-11-29 00:40] LABS: Bilirubin Negative (Negative); Blood, Urine 3+ (Negative); Clarity Turbid (Clear); Glucose, Urine (Dipstick) Normal (Negative); Ketone, Urine Negative (Negative); Leukocyte 500 Leu/uL (Negative); Nitrite 2+ (Negative); Protein, Urine (Dipstick) 70 mg/dL (Neg-Trace); RBC/HPF Greater than 50 HPF (0-3); Specific Gravity, Urine 1.022 (1.002-1.036); Squamous Epithelial None Seen HPF (0-3); Urobilinogen Normal mg/dL (Less than 2); WBC/HPF Greater than 50 HPF (0-3); pH, Urine 5.5 (5.0-9.0)
[2020-11-29 00:41] LABS: Bacteria/HPF 1+ HPF (None Seen)
[2020-11-29 01:17] VITALS: BMI 28.1
[2020-11-29] MEDS: Acetaminophen 500 MG TAB PO SCH ×4 (01:42→20:07)
[2020-11-29 02:31] LABS: SARS-CoV-2 PCR by NAA Not Detected (NotDetected)
[2020-11-29] MEDS: cefTRIAXone\\ROCEPHIN 1 GM in Sodium Chloride 0.9% 100 ML IVPB SCH (03:07)
[2020-11-29 04:57] LABS: Anion Gap 16 mmol/L (10-20); BUN (Urea Nitrogen) 31 mg/dL (8.4-25.7); Calc. Creatinine Clearance 48 mL/min (70-130); Calcium 8.6 mg/dL (7.8-10.44); Carbon Dioxide 23 mmol/L (23-31); Chloride 101 mmol/L (98-107); Glucose 97 mg/dL (83-110); Potassium 3.5 mmol/L (3.5-5.1); Sodium 136 mmol/L (136-145)
[2020-11-29 04:58] LABS: Band 8 % (5-11); Hemoglobin 9.6 g/dL (14.0-18.0); Lymphocytes 1 % (21-51); MDiff Complete? YES; Mean Corpuscular HGB CONC 33.9 g/dL (32.0-36.0); Mean Corpuscular Hemoglobin 31.7 pg (27.0-31.0); Mean Corpuscular Volume 93.5 fL (78.0-98.0); Mean Platelet Volume 8.1 fL (7.4-10.4); Metamyelocyte 1 % (0-0); Monocytes 1 % (0-10); Neutrophil 89 % (42-75); Platelet Count 119 thou/uL (130-400); Platelet Morphology Comment Appears Decreased; RBC Distribution Width 14.3 % (11.5-14.5); RBC Morphology Normal; Red Blood Cell (RBC) Count 3.03 mill/uL (4.70-6.10); White Blood Cell (WBC) Count 5.9 thou/uL (4.8-10.8)
[2020-11-29] MEDS ORDERED: Famotidine 20 MG TAB PO SCH (09:00)
[2020-11-29] MEDS: Polyethylene Glycol 3350 17 GM Packet PO SCH (09:50)
[2020-11-29] MEDS: Ezetimibe 10 MG TAB PO SCH (09:50)
[2020-11-29] MEDS: Senokot S 8.6-50 MG TAB PO SCH ×2 (09:50→21:36)
[2020-11-29] MEDS: rOPINIRole HCl 2 MG TAB PO SCH ×3 (10:00→21:36)
[2020-11-29] MEDS: Carbidopa/Levodopa CR 50-200 mg Tablet PO SCH ×2 (10:12→21:36)
[2020-11-29] MEDS: Entacapone 200 mg Tablet PO SCH ×3 (10:12→21:36)
[2020-11-29] MEDS: Amantadine HCl 100 mg Capsule PO SCH ×2 (10:13→12:10)
[2020-11-29 12:34] LABS: Anion Gap 11 mmol/L (10-20); BUN (Urea Nitrogen) 34 mg/dL (8.4-25.7); Calc. Creatinine Clearance 38 mL/min (70-130); Calcium 8.2 mg/dL (7.8-10.44); Carbon Dioxide 27 mmol/L (23-31); Chloride 103 mmol/L (98-107); Glucose 104 mg/dL (83-110); Sodium 137 mmol/L (136-145)
[2020-11-29] MEDS: Sodium Chloride 0.9% 1,000 ML IV SCH ×2 (15:33→20:32)
[2020-11-30] MEDS: cefTRIAXone\\ROCEPHIN 1 GM in Sodium Chloride 0.9% 100 ML IVPB SCH (02:58)
[2020-11-30] MEDS: Acetaminophen 500 MG TAB PO SCH ×4 (02:58→20:41)
[2020-11-30] MEDS: Sodium Chloride 0.9% 1,000 ML IV SCH (05:41)
[2020-11-30 06:31] LABS: Anion Gap 13 mmol/L (10-20); BUN (Urea Nitrogen) 47 mg/dL (8.4-25.7); Calc. Creatinine Clearance 39 mL/min (70-130); Carbon Dioxide 23 mmol/L (23-31); Chloride 103 mmol/L (98-107); Glucose 86 mg/dL (83-110); Magnesium 1.9 mg/dL (1.6-2.6); Phosphorus 3.4 mg/dL (2.3-4.7); Potassium 4.1 mmol/L (3.5-5.1); Sodium 135 mmol/L (136-145)
[2020-11-30 06:33] LABS: Band 27 % (5-11); Hemoglobin 8.9 g/dL (14.0-18.0); Lymphocytes 3 % (21-51); MDiff Complete? YES; Mean Corpuscular HGB CONC 32.1 g/dL (32.0-36.0); Mean Corpuscular Hemoglobin 30.7 pg (27.0-31.0); Mean Corpuscular Volume 95.6 fL (78.0-98.0); Mean Platelet Volume 9.1 fL (7.4-10.4); Monocytes 4 % (0-10); Neutrophil 66 % (42-75); Platelet Count 92 thou/uL (130-400); Platelet Morphology Comment Appears Decreased; RBC Distribution Width 14.7 % (11.5-14.5); Red Blood Cell (RBC) Count 2.91 mill/uL (4.70-6.10); White Blood Cell (WBC) Count 8.2 thou/uL (4.8-10.8)
[2020-11-30] MEDS ORDERED: Sulfameth/Trimethoprim DS 800-160mg TAB PO SCH (09:00)
[2020-11-30] MEDS: Entacapone 200 mg Tablet PO SCH ×3 (09:08→20:45)
[2020-11-30] MEDS: rOPINIRole HCl 2 MG TAB PO SCH ×3 (09:08→20:46)
[2020-11-30] MEDS: Amantadine HCl 100 mg Capsule PO SCH ×2 (09:09→12:46)
[2020-11-30] MEDS: Carbidopa/Levodopa CR 50-200 mg Tablet PO SCH ×2 (09:10→20:45)
[2020-11-30] MEDS: Famotidine 20 MG TAB PO SCH (09:10)
[2020-11-30] MEDS: Ezetimibe 10 MG TAB PO SCH (09:10)
[2020-11-30] MEDS: Senokot S 8.6-50 MG TAB PO SCH ×2 (09:10→20:48)
[2020-11-30] MEDS: Polyethylene Glycol 3350 17 GM Packet PO SCH (12:52)
[2020-11-30] MEDS: Sulfameth/Trimethoprim DS 800-160mg TAB PO SCH (20:48)
[2020-12-01] MEDS: Acetaminophen 500 MG TAB PO SCH ×4 (03:58→20:36)
[2020-12-01 06:26] LABS: Anion Gap 12 mmol/L (10-20); BUN (Urea Nitrogen) 45 mg/dL (8.4-25.7); Calc. Creatinine Clearance 52 mL/min (70-130); Carbon Dioxide 26 mmol/L (23-31); Chloride 104 mmol/L (98-107); Glucose 59 mg/dL (83-110); Magnesium 2.1 mg/dL (1.6-2.6); Phosphorus 2.1 mg/dL (2.3-4.7); Potassium 3.6 mmol/L (3.5-5.1); Sodium 138 mmol/L (136-145)
[2020-12-01 06:39] LABS: Band 27 % (5-11); Hemoglobin 11.1 g/dL (14.0-18.0); Lymphocytes 5 % (21-51); MDiff Complete? YES; Mean Corpuscular HGB CONC 31.7 g/dL (32.0-36.0); Mean Corpuscular Hemoglobin 30.3 pg (27.0-31.0); Mean Corpuscular Volume 95.6 fL (78.0-98.0); Mean Platelet Volume 8.9 fL (7.4-10.4); Monocytes 2 % (0-10); Neutrophil 66 % (42-75); Platelet Count 115 thou/uL (130-400); Platelet Morphology Comment Appears Decreased; RBC Distribution Width 14.4 % (11.5-14.5); Red Blood Cell (RBC) Count 3.66 mill/uL (4.70-6.10); White Blood Cell (WBC) Count 7.6 thou/uL (4.8-10.8)
[2020-12-01] MEDS: Famotidine 20 MG TAB PO SCH (08:01)
[2020-12-01] MEDS: Sulfameth/Trimethoprim DS 800-160mg TAB PO SCH ×2 (08:01→20:37)
[2020-12-01] MEDS: Ezetimibe 10 MG TAB PO SCH (08:02)
[2020-12-01] MEDS: Amantadine HCl 100 mg Capsule PO SCH ×2 (08:02→10:59)
[2020-12-01] MEDS: Polyethylene Glycol 3350 17 GM Packet PO SCH (08:02)
[2020-12-01] MEDS: Senokot S 8.6-50 MG TAB PO SCH ×2 (08:02→20:38)
[2020-12-01] MEDS: rOPINIRole HCl 2 MG TAB PO SCH ×3 (08:02→20:37)
[2020-12-01] MEDS: Entacapone 200 mg Tablet PO SCH ×3 (08:02→20:39)
[2020-12-01] MEDS: Carbidopa/Levodopa CR 50-200 mg Tablet PO SCH ×2 (08:03→20:39)
[2020-12-01] MEDS ORDERED: Potassium Chloride 20 MEQ TAB PO SCH (09:00)
[2020-12-01] MEDS: Cyanocobalamin (Vitamin B-12) 1,000 MCG TAB PO SCH (10:59)
[2020-12-02 05:27] LABS: Band 18 % (5-11); Eosinophils 2 % (0-10); Lymphocytes 8 % (21-51); MDiff Complete? YES; Mean Corpuscular HGB CONC 30.6 g/dL (32.0-36.0); Mean Corpuscular Volume 94.8 fL (78.0-98.0); Mean Platelet Volume 8.7 fL (7.4-10.4); Metamyelocyte 1 % (0-0); Monocytes 4 % (0-10); Myelocyte 1 % (0-0); Neutrophil 65 % (42-75); Platelet Count 135 thou/uL (130-400); Platelet Morphology Comment Appears Adequate; RBC Distribution Width 14.6 % (11.5-14.5); Red Blood Cell (RBC) Count 3.45 mill/uL (4.70-6.10); White Blood Cell (WBC) Count 6.4 thou/uL (4.8-10.8)
[2020-12-02 05:35] LABS: Anion Gap 12 mmol/L (10-20); BUN (Urea Nitrogen) 34 mg/dL (8.4-25.7); Calc. Creatinine Clearance 70 mL/min (70-130); Calcium 8.7 mg/dL (7.8-10.44); Carbon Dioxide 26 mmol/L (23-31); Chloride 106 mmol/L (98-107); Glucose 68 mg/dL (83-110); Phosphorus 2.3 mg/dL (2.3-4.7); Sodium 140 mmol/L (136-145)
[2020-12-02] MEDS: Acetaminophen 500 MG TAB PO SCH ×4 (07:14→20:56)
[2020-12-02] MEDS: Senokot S 8.6-50 MG TAB PO SCH ×2 (08:11→20:54)
[2020-12-02] MEDS: Polyethylene Glycol 3350 17 GM Packet PO SCH (08:11)
[2020-12-02] MEDS: rOPINIRole HCl 2 MG TAB PO SCH ×3 (08:11→20:54)
[2020-12-02] MEDS: Carbidopa/Levodopa CR 50-200 mg Tablet PO SCH ×2 (08:12→20:55)
[2020-12-02] MEDS: Sulfameth/Trimethoprim DS 800-160mg TAB PO SCH ×2 (08:12→20:53)
[2020-12-02] MEDS: Entacapone 200 mg Tablet PO SCH ×3 (08:12→20:56)
[2020-12-02] MEDS: Amantadine HCl 100 mg Capsule PO SCH ×2 (08:12→11:07)
[2020-12-02] MEDS: Ezetimibe 10 MG TAB PO SCH (08:12)
[2020-12-02] MEDS: Famotidine 20 MG TAB PO SCH (08:12)
[2020-12-02] MEDS: Cyanocobalamin (Vitamin B-12) 1,000 MCG TAB PO SCH (11:07)
[2020-12-03] MEDS: Acetaminophen 500 MG TAB PO SCH ×4 (02:32→21:20)
[2020-12-03] MEDS: Sulfameth/Trimethoprim DS 800-160mg TAB PO SCH ×2 (08:38→21:22)
[2020-12-03] MEDS: Entacapone 200 mg Tablet PO SCH ×3 (08:38→21:23)
[2020-12-03] MEDS: Polyethylene Glycol 3350 17 GM Packet PO SCH (08:38)
[2020-12-03] MEDS: Senokot S 8.6-50 MG TAB PO SCH ×2 (08:39→21:22)
[2020-12-03] MEDS: Carbidopa/Levodopa CR 50-200 mg Tablet PO SCH ×2 (08:39→21:20)
[2020-12-03] MEDS: Famotidine 20 MG TAB PO SCH (08:39)
[2020-12-03] MEDS: Ezetimibe 10 MG TAB PO SCH (08:39)
[2020-12-03] MEDS: rOPINIRole HCl 2 MG TAB PO SCH ×3 (08:41→21:20)
[2020-12-03] MEDS: Amantadine HCl 100 mg Capsule PO SCH ×2 (08:41→13:54)
[2020-12-03] MEDS: Cyanocobalamin (Vitamin B-12) 1,000 MCG TAB PO SCH (13:54)
[2020-12-04] MEDS: Acetaminophen 500 MG TAB PO SCH ×3 (02:10→13:45)
[2020-12-04 07:27] VITALS: BP 145/63; TEMP 98.8
[2020-12-04] MEDS: Sulfameth/Trimethoprim DS 800-160mg TAB PO SCH (08:54)
[2020-12-04] MEDS: Polyethylene Glycol 3350 17 GM Packet PO SCH (08:54)
[2020-12-04] MEDS: rOPINIRole HCl 2 MG TAB PO SCH (08:54)
[2020-12-04] MEDS: Famotidine 20 MG TAB PO SCH (08:54)
[2020-12-04] MEDS: Ezetimibe 10 MG TAB PO SCH (08:54)
[2020-12-04] MEDS: Amantadine HCl 100 mg Capsule PO SCH ×2 (08:54→13:24)
[2020-12-04] MEDS: Senokot S 8.6-50 MG TAB PO SCH (08:54)
[2020-12-04] MEDS: Entacapone 200 mg Tablet PO SCH (08:55)
[2020-12-04] MEDS: Carbidopa/Levodopa CR 50-200 mg Tablet PO SCH (08:55)
[2020-12-04] MEDS ORDERED: Amantadine HCl 100 mg Capsule ONE (13:18)
[2020-12-04] MEDS ORDERED: Cyanocobalamin (Vitamin B-12) 1,000 MCG TAB ONE (13:19)
[2020-12-04] MEDS ORDERED: Acetaminophen 500 MG TAB ONE (13:19)
[2020-12-04] MEDS: Cyanocobalamin (Vitamin B-12) 1,000 MCG TAB PO SCH (13:25)
== END 2020-12-04 15:00 | disposition home health service (06) | DRG 82 ==
LOC: ERS 18:11 → CCU 22:01 → SURG A 11-29 17:12
PROVIDERS: ADMIT Surgery; ATTEND Surgery
DX: S06.5X9A Traumatic subdural hemorrhage with loss of consciousness of unspecified duration, initial encounter (principal); A41.9 Sepsis, unspecified organism; N39.0 Urinary tract infection, site not specified; N17.9 Acute kidney failure, unspecified; W18.30XA Fall on same level, unspecified, initial encounter; G20 Parkinson's disease; I12.9 Hypertensive chronic kidney disease with stage 1 through stage 4 chronic kidney disease, or unspecified chronic kidney disease; G47.30 Sleep apnea, unspecified; B96.20 Unspecified Escherichia coli [E. coli] as the cause of diseases classified elsewhere; R40.2412 Glasgow coma scale score 13-15, at arrival to emergency department; Z20.822 Contact with and (suspected) exposure to COVID-19; F32.9 Major depressive disorder, single episode, unspecified; N18.30 Chronic kidney disease, stage 3 unspecified; E16.2 Hypoglycemia, unspecified; Z91.040 Latex allergy status
CPT/HCPCS: 36415; 36416; 51701; 70450; 71045; 80048; 80053; 81003; 81015; 82533; 83605; 83735; 84100; 84484; 85025; 85610; 85730; 87040; 87077; 87086; 87149; 87186; 87635; 93005; 93306; G0390; J0696; J3490; U0003; U0005

== ENCOUNTER 2020-12-08 17:09 | Inpatient (IN) | payer MEDICARE ==
[2020-12-08 18:01] LABS: #Lymphocytes 0.7 thou/uL (1.20-3.40); #Monocytes 0.5 thou/uL (0.11-0.59); #Neutrophils 9.9 thou/uL (1.40-6.50); %Basophils 0.1 % (0.0-1.0); %Eosinophils 0.4 % (0.0-10.0); %Lymphocytes 6.2 % (21.0-51.0); %Monocytes 4.5 % (0.0-10.0); %Neutrophils 88.8 % (42.0-75.0); Hemoglobin 11.9 g/dL (14.0-18.0); Mean Corpuscular HGB CONC 32.2 g/dL (32.0-36.0); Mean Corpuscular Volume 93.2 fL (78.0-98.0); Mean Platelet Volume 7.4 fL (7.4-10.4); Platelet Count 255 thou/uL (130-400); RBC Distribution Width 15.5 % (11.5-14.5); Red Blood Cell (RBC) Count 3.95 mill/uL (4.70-6.10); White Blood Cell (WBC) Count 11.2 thou/uL (4.8-10.8)
[2020-12-08 18:27] LABS: ALT (SGPT) 7 U/L (8-55); AST (SGOT) 42 U/L (5-34); Albumin 3.6 g/dL (3.4-4.8); Alkaline Phosphatase 348 U/L (40-110); Anion Gap 13 mmol/L (10-20); BUN (Urea Nitrogen) 16 mg/dL (8.4-25.7); Bilirubin, Total 0.8 mg/dL (0.2-1.2); Calc. Creatinine Clearance 0 mL/min (70-130); Calcium 9.2 mg/dL (7.8-10.44); Carbon Dioxide 25 mmol/L (23-31); Chloride 102 mmol/L (98-107); Globulin 3.1 g/dL (2.4-3.5); Glucose 100 mg/dL (83-110); Potassium 4.3 mmol/L (3.5-5.1); Protein, Total 6.7 g/dL (5.8-8.1); Sodium 136 mmol/L (136-145)
[2020-12-08] MEDS ORDERED: Cyclobenzaprine 10 MG TAB ONE (19:16)
[2020-12-08] MEDS ORDERED: Acetaminophen 500 MG TAB ONE (19:16)
[2020-12-08] MEDS ORDERED: Acetaminophen 325 MG TAB PO PRN ×2 (22:45→23:07)
[2020-12-08] MEDS ORDERED: Ondansetron ODT 4 MG TAB SL PRN (22:45)
[2020-12-08] MEDS ORDERED: Ondansetron PF 4 MG/2 ML Vial IVP PRN ×2 (22:45→23:07)
[2020-12-09] MEDS ORDERED: levETIRAcetam in NS 500 MG in Premix Bag 1 BAG IVPB SCH (03:00)
[2020-12-09 04:50] LABS: #Eosinphils 0.1 thou/uL (0.0-0.7); #Lymphocytes 0.7 thou/uL (1.20-3.40); #Monocytes 0.5 thou/uL (0.11-0.59); #Neutrophils 5.3 thou/uL (1.40-6.50); %Basophils 0.1 % (0.0-1.0); %Eosinophils 1.2 % (0.0-10.0); %Lymphocytes 10.9 % (21.0-51.0); %Monocytes 7.1 % (0.0-10.0); %Neutrophils 80.7 % (42.0-75.0); Hemoglobin 10.7 g/dL (14.0-18.0); Mean Corpuscular HGB CONC 31.4 g/dL (32.0-36.0); Mean Corpuscular Hemoglobin 29.3 pg (27.0-31.0); Mean Corpuscular Volume 93.4 fL (78.0-98.0); Mean Platelet Volume 7.3 fL (7.4-10.4); Platelet Count 252 thou/uL (130-400); RBC Distribution Width 15.4 % (11.5-14.5); Red Blood Cell (RBC) Count 3.65 mill/uL (4.70-6.10); White Blood Cell (WBC) Count 6.6 thou/uL (4.8-10.8)
[2020-12-09 05:14] LABS: ALT (SGPT) 15 U/L (8-55); AST (SGOT) 33 U/L (5-34); Albumin 3.1 g/dL (3.4-4.8); Alkaline Phosphatase 288 U/L (40-110); Anion Gap 10 mmol/L (10-20); BUN (Urea Nitrogen) 14 mg/dL (8.4-25.7); Bilirubin, Direct 0.4 mg/dL (0.1-0.3); Bilirubin, Total 0.9 mg/dL (0.2-1.2); Calc. Creatinine Clearance 74 mL/min (70-130); Calcium 8.6 mg/dL (7.8-10.44); Carbon Dioxide 28 mmol/L (23-31); Chloride 103 mmol/L (98-107); Glucose 79 mg/dL (83-110); Potassium 3.8 mmol/L (3.5-5.1); Protein, Total 5.9 g/dL (5.8-8.1); Sodium 137 mmol/L (136-145)
[2020-12-09 05:33] LABS: SARS-CoV-2 NAA Rapid Test Not Detected (NotDetected)
[2020-12-09] MEDS ORDERED: Acetaminophen 325 MG TAB PO PRN (07:23)
[2020-12-09 08:28] LABS: Bacteria/HPF None Seen HPF (None Seen); Bilirubin Negative (Negative); Blood, Urine Negative (Negative); Clarity Clear (Clear); Glucose, Urine (Dipstick) Normal (Negative); Ketone, Urine Negative (Negative); Leukocyte Negative Leu/uL (Negative); Nitrite Negative (Negative); Protein, Urine (Dipstick) Negative (Neg-Trace); RBC/HPF None Seen HPF (0-3); Specific Gravity, Urine 1.014 (1.002-1.036); Squamous Epithelial None Seen HPF (0-3); Urobilinogen Normal mg/dL (Less than 2); WBC/HPF 0-3 HPF (0-3); pH, Urine 6.5 (5.0-9.0)
[2020-12-09 08:31] LABS: Urine Culture Reflex No No
[2020-12-09] MEDS: levETIRAcetam in NS 500 MG in Premix Bag 1 BAG IVPB SCH ×2 (09:51→21:04)
[2020-12-09] MEDS: rOPINIRole HCl 1 MG TAB PO SCH ×3 (09:53→18:09)
[2020-12-09] MEDS: Amantadine HCl 100 mg Capsule PO SCH ×2 (09:53→18:10)
[2020-12-09] MEDS: Entacapone 200 mg Tablet PO SCH ×3 (09:53→21:05)
[2020-12-09] MEDS: Polyethylene Glycol 3350 17 GM Packet PO SCH (09:53)
[2020-12-09] MEDS: Ezetimibe 10 MG TAB PO SCH (09:53)
[2020-12-09] MEDS: Carbidopa/Levodopa CR 50-200 mg Tablet PO SCH ×2 (09:53→16:36)
[2020-12-09] MEDS: Cyanocobalamin (Vitamin B-12) 1,000 MCG TAB PO SCH (13:40)
[2020-12-10 05:44] LABS: #Eosinphils 0.1 thou/uL (0.0-0.7); #Lymphocytes 0.7 thou/uL (1.20-3.40); #Monocytes 0.4 thou/uL (0.11-0.59); #Neutrophils 4.1 thou/uL (1.40-6.50); %Eosinophils 2.6 % (0.0-10.0); %Lymphocytes 13.2 % (21.0-51.0); %Monocytes 7.6 % (0.0-10.0); %Neutrophils 76.5 % (42.0-75.0); Hemoglobin 10.6 g/dL (14.0-18.0); Mean Corpuscular HGB CONC 31.6 g/dL (32.0-36.0); Mean Corpuscular Hemoglobin 29.7 pg (27.0-31.0); Mean Corpuscular Volume 94.2 fL (78.0-98.0); Mean Platelet Volume 7.5 fL (7.4-10.4); Platelet Count 247 thou/uL (130-400); RBC Distribution Width 15.4 % (11.5-14.5); Red Blood Cell (RBC) Count 3.58 mill/uL (4.70-6.10); White Blood Cell (WBC) Count 5.4 thou/uL (4.8-10.8)
[2020-12-10 06:20] LABS: ALT (SGPT) Less than 7 U/L (8-55); AST (SGOT) 26 U/L (5-34); Albumin 3.1 g/dL (3.4-4.8); Alkaline Phosphatase 274 U/L (40-110); Anion Gap 11 mmol/L (10-20); BUN (Urea Nitrogen) 15 mg/dL (8.4-25.7); Bilirubin, Direct 0.3 mg/dL (0.1-0.3); Bilirubin, Total 0.7 mg/dL (0.2-1.2); Calc. Creatinine Clearance 76 mL/min (70-130); Calcium 8.6 mg/dL (7.8-10.44); Carbon Dioxide 28 mmol/L (23-31); Chloride 104 mmol/L (98-107); Glucose 78 mg/dL (83-110); Potassium 4.6 mmol/L (3.5-5.1); Protein, Total 6.2 g/dL (5.8-8.1); Sodium 138 mmol/L (136-145)
[2020-12-10] MEDS: rOPINIRole HCl 1 MG TAB PO SCH ×3 (06:46→17:19)
[2020-12-10 08:46] VITALS: BMI 25.6
[2020-12-10] MEDS: Polyethylene Glycol 3350 17 GM Packet PO SCH (08:52)
[2020-12-10] MEDS: Carbidopa/Levodopa CR 50-200 mg Tablet PO SCH ×2 (08:52→17:14)
[2020-12-10] MEDS: Entacapone 200 mg Tablet PO SCH ×3 (08:52→21:21)
[2020-12-10] MEDS: Amantadine HCl 100 mg Capsule PO SCH ×2 (08:52→17:15)
[2020-12-10] MEDS: Ezetimibe 10 MG TAB PO SCH (08:52)
[2020-12-10] MEDS: levETIRAcetam in NS 500 MG in Premix Bag 1 BAG IVPB SCH (08:53)
[2020-12-10] MEDS: Cyanocobalamin (Vitamin B-12) 1,000 MCG TAB PO SCH (11:38)
[2020-12-10] MEDS: levETIRAcetam 500 MG TAB PO SCH (21:20)
[2020-12-11] MEDS: Ezetimibe 10 MG TAB PO SCH (09:06)
[2020-12-11] MEDS: Polyethylene Glycol 3350 17 GM Packet PO SCH (09:06)
[2020-12-11] MEDS: rOPINIRole HCl 1 MG TAB PO SCH ×3 (09:06→17:37)
[2020-12-11] MEDS: Carbidopa/Levodopa CR 50-200 mg Tablet PO SCH ×2 (09:11→17:37)
[2020-12-11] MEDS: levETIRAcetam 500 MG TAB PO SCH ×2 (09:11→20:30)
[2020-12-11] MEDS: Amantadine HCl 100 mg Capsule PO SCH ×2 (09:12→17:37)
[2020-12-11] MEDS: Entacapone 200 mg Tablet PO SCH ×3 (09:12→20:30)
[2020-12-11] MEDS: Cyanocobalamin (Vitamin B-12) 1,000 MCG TAB PO SCH (13:14)
[2020-12-11] MEDS ORDERED: Haloperidol Lactate 5 MG/ML VIAL SLOW IVP SCH (18:33)
[2020-12-12] MEDS: Amantadine HCl 100 mg Capsule PO SCH ×2 (08:23→16:29)
[2020-12-12] MEDS: Entacapone 200 mg Tablet PO SCH ×3 (08:23→21:39)
[2020-12-12] MEDS: Ezetimibe 10 MG TAB PO SCH (08:23)
[2020-12-12] MEDS: rOPINIRole HCl 1 MG TAB PO SCH ×3 (08:23→16:30)
[2020-12-12] MEDS: Carbidopa/Levodopa CR 50-200 mg Tablet PO SCH ×2 (08:24→16:29)
[2020-12-12] MEDS: Polyethylene Glycol 3350 17 GM Packet PO SCH ×2 (08:24→08:37)
[2020-12-12] MEDS: levETIRAcetam 500 MG TAB PO SCH ×2 (08:24→20:53)
[2020-12-12] MEDS: Cyanocobalamin (Vitamin B-12) 1,000 MCG TAB PO SCH (11:03)
[2020-12-13] MEDS: Carbidopa/Levodopa CR 50-200 mg Tablet PO SCH (08:16)
[2020-12-13] MEDS: levETIRAcetam 500 MG TAB PO SCH (08:16)
[2020-12-13] MEDS: rOPINIRole HCl 1 MG TAB PO SCH ×2 (08:16→11:24)
[2020-12-13] MEDS: Polyethylene Glycol 3350 17 GM Packet PO SCH (08:17)
[2020-12-13] MEDS: Ezetimibe 10 MG TAB PO SCH (08:17)
[2020-12-13] MEDS: Entacapone 200 mg Tablet PO SCH ×2 (08:17→11:24)
[2020-12-13] MEDS: Amantadine HCl 100 mg Capsule PO SCH (08:17)
[2020-12-13] MEDS: Cyanocobalamin (Vitamin B-12) 1,000 MCG TAB PO SCH (11:24)
[2020-12-13 12:49] VITALS: BP 114/53; TEMP 98.4
== END 2020-12-13 13:10 | DRG 101 ==
LOC: ERS 17:09 → 2SE 20:39 → OBSVTOIN 20:39 → INTOOBSV 20:39 → OBSVTOIN 12-09 11:54
PROVIDERS: ADMIT Internal Medicine; ATTEND Internal Medicine
DX: G40.109 Localization-related (focal) (partial) symptomatic epilepsy and epileptic syndromes with simple partial seizures, not intractable, without status epilepticus (principal); I50.32 Chronic diastolic (congestive) heart failure; I25.810 Atherosclerosis of coronary artery bypass graft(s) without angina pectoris; S06.5X9D Traumatic subdural hemorrhage with loss of consciousness of unspecified duration, subsequent encounter; Z23 Encounter for immunization; Z20.822 Contact with and (suspected) exposure to COVID-19; I11.0 Hypertensive heart disease with heart failure; E78.5 Hyperlipidemia, unspecified; G47.33 Obstructive sleep apnea (adult) (pediatric); G20 Parkinson's disease; D64.9 Anemia, unspecified; F32.9 Major depressive disorder, single episode, unspecified; E11.43 Type 2 diabetes mellitus with diabetic autonomic (poly)neuropathy; G93.89 Other specified disorders of brain; E03.9 Hypothyroidism, unspecified; R74.8 Abnormal levels of other serum enzymes; D72.829 Elevated white blood cell count, unspecified; Z98.890 Other specified postprocedural states; Z79.899 Other long term (current) drug therapy
CPT/HCPCS: 36415; 70450; 72192; 76705; 80048; 80053; 80076; 81001; 83735; 85025; 90471; 90732; 95712; 95816; 95819; 95957; G0009; G0378; J1953; U0002

== ENCOUNTER 2020-12-15 14:58 | Inpatient (IN) | payer MEDICARE, OTHER ==
[2020-12-15 16:10] LABS: #Eosinphils 0.1 thou/uL (0.0-0.7); #Lymphocytes 0.6 thou/uL (1.20-3.40); #Monocytes 0.7 thou/uL (0.11-0.59); #Neutrophils 3.5 thou/uL (1.40-6.50); %Basophils 0.1 % (0.0-1.0); %Eosinophils 1.3 % (0.0-10.0); %Lymphocytes 13.1 % (21.0-51.0); %Monocytes 13.7 % (0.0-10.0); %Neutrophils 71.8 % (42.0-75.0); Hemoglobin 12.9 g/dL (14.0-18.0); Mean Corpuscular HGB CONC 32.6 g/dL (32.0-36.0); Mean Corpuscular Hemoglobin 30.6 pg (27.0-31.0); Mean Corpuscular Volume 93.9 fL (78.0-98.0); Mean Platelet Volume 8.1 fL (7.4-10.4); Platelet Count 206 thou/uL (130-400); White Blood Cell (WBC) Count 4.9 thou/uL (4.8-10.8)
[2020-12-15 16:29] LABS: ALT (SGPT) Less than 7 U/L (8-55); AST (SGOT) 34 U/L (5-34); Albumin 3.8 g/dL (3.4-4.8); Alkaline Phosphatase 247 U/L (40-110); Anion Gap 14 mmol/L (10-20); BUN (Urea Nitrogen) 17 mg/dL (8.4-25.7); Bilirubin, Total 0.7 mg/dL (0.2-1.2); Calc. Creatinine Clearance 0 mL/min (70-130); Calcium 9.6 mg/dL (7.8-10.44); Carbon Dioxide 26 mmol/L (23-31); Chloride 101 mmol/L (98-107); Globulin 3.3 g/dL (2.4-3.5); Glucose 106 mg/dL (83-110); Potassium 4.2 mmol/L (3.5-5.1); Protein, Total 7.1 g/dL (5.8-8.1); Sodium 137 mmol/L (136-145)
[2020-12-15] MEDS ORDERED: Acetaminophen 325 MG TAB PO PRN (18:01)
[2020-12-15] MEDS ORDERED: Dextrose 5% in Water 1,000 ML IV PRN (18:02)
[2020-12-15] MEDS ORDERED: hydrALAZINE 20 MG/ML VIAL SLOW IVP PRN (18:02)
[2020-12-15] MEDS ORDERED: Ondansetron PF 4 MG/2 ML Vial IVP PRN (18:02)
[2020-12-15] MEDS ORDERED: Dextrose 50% Abboject 50 ML SYRINGE SLOW IVP PRN (18:02)
[2020-12-15 19:14] LABS: Phosphorus 2.4 mg/dL (2.3-4.7)
[2020-12-15] MEDS ORDERED: levETIRAcetam 500 MG TAB PO SCH (21:00)
[2020-12-15] MEDS: Carbidopa/Levodopa CR 50-200 mg Tablet PO SCH (21:11)
[2020-12-15] MEDS: rOPINIRole HCl 2 MG TAB PO SCH (21:14)
[2020-12-15] MEDS: Amantadine HCl 100 mg Capsule FS SCH (21:15)
[2020-12-15] MEDS: Entacapone 200 mg Tablet PO SCH (21:15)
[2020-12-15] MEDS: Lactated Ringer's 1,000 ML IV SCH (21:17)
[2020-12-15 23:20] VITALS: BMI 24.9
[2020-12-16] MEDS ORDERED: hydrALAZINE 20 MG/ML VIAL SLOW IVP PRN (01:26)
[2020-12-16 04:56] LABS: PTT 28.3 sec (22.9-36.1); Prothrombin Time 13.8 sec (12.0-14.7)
[2020-12-16 05:11] LABS: Anion Gap 13 mmol/L (10-20); BUN (Urea Nitrogen) 15 mg/dL (8.4-25.7); Calc. Creatinine Clearance 78 mL/min (70-130); Calcium 9.1 mg/dL (7.8-10.44); Carbon Dioxide 25 mmol/L (23-31); Chloride 102 mmol/L (98-107); Glucose 95 mg/dL (83-110); Potassium 4.1 mmol/L (3.5-5.1); Sodium 136 mmol/L (136-145)
[2020-12-16] MEDS: Lactated Ringer's 1,000 ML IV SCH (06:15)
[2020-12-16 06:31] LABS: Bacteria/HPF None Seen HPF (None Seen); Bilirubin Negative (Negative); Blood, Urine Negative (Negative); Calcium Oxalate Crystals Rare HPF (None Seen); Clarity Clear (Clear); Glucose, Urine (Dipstick) Normal (Negative); Ketone, Urine Trace mg/dL (Negative); Leukocyte Negative Leu/uL (Negative); Nitrite Negative (Negative); Protein, Urine (Dipstick) 30 mg/dL (Neg-Trace); RBC/HPF 0-3 HPF (0-3); Specific Gravity, Urine 1.027 (1.002-1.036); Squamous Epithelial None Seen HPF (0-3); Urobilinogen Normal mg/dL (Less than 2); WBC/HPF 0-3 HPF (0-3); pH, Urine 5.5 (5.0-9.0)
[2020-12-16 06:32] LABS: Urine Culture Reflex No No
[2020-12-16 06:36] LABS: Band 11 % (5-11); Elliptocytes SLIGHT = 2-5 cells (100X) (0-1/hpf); Eosinophils 2 % (0-10); Hemoglobin 10.8 g/dL (14.0-18.0); Lymphocytes 11 % (21-51); MDiff Complete? YES; Mean Corpuscular HGB CONC 31.2 g/dL (32.0-36.0); Mean Corpuscular Hemoglobin 29.3 pg (27.0-31.0); Mean Corpuscular Volume 93.8 fL (78.0-98.0); Mean Platelet Volume 8.7 fL (7.4-10.4); Monocytes 10 % (0-10); Neutrophil 66 % (42-75); Platelet Count 202 thou/uL (130-400); Platelet Morphology Comment Appears Adequate; RBC Distribution Width 15.4 % (11.5-14.5); White Blood Cell (WBC) Count 3.7 thou/uL (4.8-10.8)
[2020-12-16] MEDS: Cholecalciferol 1,000 UNITS (25 MCG) TAB PO SCH (10:05)
[2020-12-16] MEDS: levETIRAcetam 500 MG TAB PO SCH ×2 (10:05→21:20)
[2020-12-16] MEDS: rOPINIRole HCl 2 MG TAB PO SCH ×3 (10:06→21:20)
[2020-12-16] MEDS: Carbidopa/Levodopa CR 50-200 mg Tablet PO SCH ×2 (10:06→21:20)
[2020-12-16] MEDS: Ezetimibe 10 MG TAB PO SCH (10:06)
[2020-12-16] MEDS: Entacapone 200 mg Tablet PO SCH ×3 (10:07→21:19)
[2020-12-16] MEDS: Amantadine HCl 100 mg Capsule FS SCH ×2 (10:07→21:20)
[2020-12-16] MEDS: Polyethylene Glycol 3350 17 GM Packet PO SCH (10:08)
[2020-12-16] MEDS: Cyanocobalamin (Vitamin B-12) 1,000 MCG TAB PO SCH (12:54)
[2020-12-16] MEDS: Melatonin 3 MG TAB PO PRN (21:20)
[2020-12-17] MEDS: rOPINIRole HCl 2 MG TAB PO SCH ×3 (08:39→21:04)
[2020-12-17] MEDS: Ezetimibe 10 MG TAB PO SCH (08:39)
[2020-12-17] MEDS: Polyethylene Glycol 3350 17 GM Packet PO SCH (08:39)
[2020-12-17] MEDS: Carbidopa/Levodopa CR 50-200 mg Tablet PO SCH ×2 (08:39→21:04)
[2020-12-17] MEDS: Amantadine HCl 100 mg Capsule FS SCH ×2 (08:39→21:05)
[2020-12-17] MEDS: levETIRAcetam 500 MG TAB PO SCH ×2 (08:39→21:04)
[2020-12-17] MEDS: Entacapone 200 mg Tablet PO SCH ×3 (08:40→21:04)
[2020-12-17] MEDS: Cholecalciferol 1,000 UNITS (25 MCG) TAB PO SCH (08:40)
[2020-12-17] MEDS: Cyanocobalamin (Vitamin B-12) 1,000 MCG TAB PO SCH (12:31)
[2020-12-18] MEDS: rOPINIRole HCl 2 MG TAB PO SCH ×3 (09:01→21:03)
[2020-12-18] MEDS: Carbidopa/Levodopa CR 50-200 mg Tablet PO SCH ×2 (09:02→21:03)
[2020-12-18] MEDS: Cholecalciferol 1,000 UNITS (25 MCG) TAB PO SCH (09:02)
[2020-12-18] MEDS: Amantadine HCl 100 mg Capsule FS SCH ×2 (09:02→21:03)
[2020-12-18] MEDS: Polyethylene Glycol 3350 17 GM Packet PO SCH (09:02)
[2020-12-18] MEDS: Ezetimibe 10 MG TAB PO SCH (09:02)
[2020-12-18] MEDS: levETIRAcetam 500 MG TAB PO SCH ×2 (09:02→21:03)
[2020-12-18] MEDS: Entacapone 200 mg Tablet PO SCH ×3 (09:06→21:03)
[2020-12-18] MEDS: Cyanocobalamin (Vitamin B-12) 1,000 MCG TAB PO SCH (11:34)
[2020-12-18] MEDS ORDERED: RisperDAL M-TAB 1 MG TAB SL SCH (19:30)
[2020-12-19] MEDS: Entacapone 200 mg Tablet PO SCH ×3 (12:33→20:36)
[2020-12-19] MEDS: Cholecalciferol 1,000 UNITS (25 MCG) TAB PO SCH (12:57)
[2020-12-19] MEDS: Carbidopa/Levodopa CR 50-200 mg Tablet PO SCH ×2 (12:58→20:37)
[2020-12-19] MEDS: levETIRAcetam 500 MG TAB PO SCH ×2 (12:58→20:38)
[2020-12-19] MEDS: Ezetimibe 10 MG TAB PO SCH (12:58)
[2020-12-19] MEDS: Cyanocobalamin (Vitamin B-12) 1,000 MCG TAB PO SCH (12:58)
[2020-12-19] MEDS: Amantadine HCl 100 mg Capsule FS SCH ×2 (12:58→20:38)
[2020-12-19] MEDS: Polyethylene Glycol 3350 17 GM Packet PO SCH (12:59)
[2020-12-19] MEDS: rOPINIRole HCl 2 MG TAB PO SCH ×3 (12:59→20:38)
[2020-12-19] MEDS: Melatonin 3 MG TAB PO PRN (20:35)
[2020-12-20] MEDS: Polyethylene Glycol 3350 17 GM Packet PO SCH (08:33)
[2020-12-20] MEDS: Carbidopa/Levodopa CR 50-200 mg Tablet PO SCH ×2 (08:33→20:34)
[2020-12-20] MEDS: Cholecalciferol 1,000 UNITS (25 MCG) TAB PO SCH (08:33)
[2020-12-20] MEDS: Entacapone 200 mg Tablet PO SCH ×3 (08:33→20:35)
[2020-12-20] MEDS: levETIRAcetam 500 MG TAB PO SCH ×2 (08:34→20:31)
[2020-12-20] MEDS: rOPINIRole HCl 2 MG TAB PO SCH ×3 (08:34→20:32)
[2020-12-20] MEDS: Ezetimibe 10 MG TAB PO SCH (08:34)
[2020-12-20] MEDS: Lisinopril 5 MG TAB PO SCH (08:34)
[2020-12-20] MEDS: Amantadine HCl 100 mg Capsule FS SCH ×2 (08:34→20:34)
[2020-12-20] MEDS: Cyanocobalamin (Vitamin B-12) 1,000 MCG TAB PO SCH (11:30)
[2020-12-20] MEDS: Melatonin 3 MG TAB PO PRN (20:34)
[2020-12-21] MEDS: Amantadine HCl 100 mg Capsule PO SCH ×2 (08:50→22:42)
[2020-12-21] MEDS: Carbidopa/Levodopa CR 50-200 mg Tablet PO SCH ×2 (08:50→22:43)
[2020-12-21] MEDS: Lisinopril 5 MG TAB PO SCH (08:50)
[2020-12-21] MEDS: Cholecalciferol 1,000 UNITS (25 MCG) TAB PO SCH (08:50)
[2020-12-21] MEDS: Entacapone 200 mg Tablet PO SCH ×3 (08:50→22:43)
[2020-12-21] MEDS: levETIRAcetam 500 MG TAB PO SCH ×2 (08:50→22:42)
[2020-12-21] MEDS: rOPINIRole HCl 2 MG TAB PO SCH ×3 (08:51→22:41)
[2020-12-21] MEDS: Polyethylene Glycol 3350 17 GM Packet PO SCH (08:51)
[2020-12-21] MEDS: Ezetimibe 10 MG TAB PO SCH (08:51)
[2020-12-21] MEDS: Cyanocobalamin (Vitamin B-12) 1,000 MCG TAB PO SCH (11:21)
[2020-12-21] MEDS: Melatonin 3 MG TAB PO PRN (22:41)
[2020-12-22] MEDS: rOPINIRole HCl 2 MG TAB PO SCH ×3 (08:52→20:49)
[2020-12-22] MEDS: Ezetimibe 10 MG TAB PO SCH (08:52)
[2020-12-22] MEDS: levETIRAcetam 500 MG TAB PO SCH ×2 (08:52→20:50)
[2020-12-22] MEDS: Amantadine HCl 100 mg Capsule PO SCH ×2 (08:52→20:50)
[2020-12-22] MEDS: Polyethylene Glycol 3350 17 GM Packet PO SCH (08:52)
[2020-12-22] MEDS: Entacapone 200 mg Tablet PO SCH ×3 (08:53→20:52)
[2020-12-22] MEDS: Carbidopa/Levodopa CR 50-200 mg Tablet PO SCH ×2 (08:53→20:50)
[2020-12-22] MEDS: Lisinopril 5 MG TAB PO SCH (08:53)
[2020-12-22] MEDS: Cholecalciferol 1,000 UNITS (25 MCG) TAB PO SCH (08:53)
[2020-12-22] MEDS: Cyanocobalamin (Vitamin B-12) 1,000 MCG TAB PO SCH (11:08)
[2020-12-22] MEDS: Melatonin 3 MG TAB PO PRN (20:50)
[2020-12-23] MEDS: Polyethylene Glycol 3350 17 GM Packet PO SCH (09:26)
[2020-12-23] MEDS: rOPINIRole HCl 2 MG TAB PO SCH ×3 (09:26→20:03)
[2020-12-23] MEDS: Amantadine HCl 100 mg Capsule PO SCH ×2 (09:27→20:03)
[2020-12-23] MEDS: Cholecalciferol 1,000 UNITS (25 MCG) TAB PO SCH (09:27)
[2020-12-23] MEDS: Entacapone 200 mg Tablet PO SCH ×3 (09:27→20:03)
[2020-12-23] MEDS: Ezetimibe 10 MG TAB PO SCH (09:27)
[2020-12-23] MEDS: Lisinopril 5 MG TAB PO SCH (09:27)
[2020-12-23] MEDS: Carbidopa/Levodopa CR 50-200 mg Tablet PO SCH ×2 (09:27→20:03)
[2020-12-23] MEDS: levETIRAcetam 500 MG TAB PO SCH ×2 (09:27→20:02)
[2020-12-23] MEDS: Cyanocobalamin (Vitamin B-12) 1,000 MCG TAB PO SCH (11:10)
[2020-12-24] MEDS: levETIRAcetam 500 MG TAB PO SCH ×2 (08:34→19:55)
[2020-12-24] MEDS: rOPINIRole HCl 2 MG TAB PO SCH ×3 (08:34→19:55)
[2020-12-24] MEDS: Amantadine HCl 100 mg Capsule PO SCH ×2 (08:34→19:55)
[2020-12-24] MEDS: Ezetimibe 10 MG TAB PO SCH (08:34)
[2020-12-24] MEDS: Polyethylene Glycol 3350 17 GM Packet PO SCH (08:34)
[2020-12-24] MEDS: Carbidopa/Levodopa CR 50-200 mg Tablet PO SCH ×2 (08:35→19:56)
[2020-12-24] MEDS: Entacapone 200 mg Tablet PO SCH ×3 (08:35→19:55)
[2020-12-24] MEDS: Lisinopril 5 MG TAB PO SCH (08:35)
[2020-12-24] MEDS: Cholecalciferol 1,000 UNITS (25 MCG) TAB PO SCH (08:35)
[2020-12-24] MEDS: Cyanocobalamin (Vitamin B-12) 1,000 MCG TAB PO SCH (11:48)
[2020-12-24] MEDS: Melatonin 3 MG TAB PO PRN (19:55)
[2020-12-25] MEDS: Polyethylene Glycol 3350 17 GM Packet PO SCH (08:27)
[2020-12-25] MEDS: rOPINIRole HCl 2 MG TAB PO SCH (08:28)
[2020-12-25] MEDS: levETIRAcetam 500 MG TAB PO SCH (08:28)
[2020-12-25] MEDS: Carbidopa/Levodopa CR 50-200 mg Tablet PO SCH (08:28)
[2020-12-25] MEDS: Entacapone 200 mg Tablet PO SCH ×2 (08:28→11:53)
[2020-12-25] MEDS: Ezetimibe 10 MG TAB PO SCH (08:28)
[2020-12-25] MEDS: Cholecalciferol 1,000 UNITS (25 MCG) TAB PO SCH (08:28)
[2020-12-25] MEDS: Lisinopril 5 MG TAB PO SCH (08:28)
[2020-12-25] MEDS: Amantadine HCl 100 mg Capsule PO SCH (08:31)
[2020-12-25] MEDS: Cyanocobalamin (Vitamin B-12) 1,000 MCG TAB PO SCH (11:53)
[2020-12-25 11:57] VITALS: BP 131/102; TEMP 98
== END 2020-12-25 12:34 | DRG 86 ==
LOC: ERS 14:58 → 2SE 17:54 → SURG A 12-16 18:37
PROVIDERS: ADMIT Surgery; ATTEND Surgery
DX: S06.5X0A Traumatic subdural hemorrhage without loss of consciousness, initial encounter (principal); I50.32 Chronic diastolic (congestive) heart failure; Z20.822 Contact with and (suspected) exposure to COVID-19; E03.9 Hypothyroidism, unspecified; G20 Parkinson's disease; I10 Essential (primary) hypertension; F32.9 Major depressive disorder, single episode, unspecified; G40.909 Epilepsy, unspecified, not intractable, without status epilepticus; I25.10 Atherosclerotic heart disease of native coronary artery without angina pectoris; I11.0 Hypertensive heart disease with heart failure; R29.6 Repeated falls; W01.10XA Fall on same level from slipping, tripping and stumbling with subsequent striking against unspecified object, initial encounter; R29.810 Facial weakness; R40.2362 Coma scale, best motor response, obeys commands, at arrival to emergency department; R40.2142 Coma scale, eyes open, spontaneous, at arrival to emergency department; R40.2252 Coma scale, best verbal response, oriented, at arrival to emergency department; Y92.129 Unspecified place in nursing home as the place of occurrence of the external cause; Z91.81 History of falling; Z79.899 Other long term (current) drug therapy
CPT/HCPCS: 36415; 36416; 70450; 71045; 80048; 80053; 81001; 82550; 83735; 84100; 84484; 85025; 85610; 85730; 93005; J0360